=== PATIENT | male | born 1945 | race Caucasian/White ===

== ENCOUNTER 2017-11-12 06:27 | Day surgery (SDC) | payer MEDICARE, BC ==
[2017-11-10 09:43] VITALS: BMI 31.1
[~2017-11-12 06:27] MED LIST: ALPRAZolam 0.25 MG TAB PO PRN; ALPRAZolam 0.5 MG TAB PO PRN; ASPIRIN 325 MG TAB PO STA; ATORVASTATIN 80 MG TAB PO STA; NITROGLYCERIN SL TABS 0.4 MG TAB SUBLINGUAL PRN; SODIUM CHLORIDE 0.9% 1,000 ML in EMPTY BAG 1 BAG IV ONE
[2017-11-12 07:00] VITALS: RESP 18
[2017-11-12 07:04] LABS: Glucose,Whole Blood 153 mg/dL (75-99)
[2017-11-12] MEDS ORDERED: LIDOCAINE 2% INJ 20 MG/ML (20 ML MDV) ONE (07:27)
[2017-11-12] MEDS ORDERED: VERAPAMIL 2.5 MG/ML 2 ML AMP ONE (07:27)
[2017-11-12 07:31] LABS: Anion Gap 12 mmol/L; Blood Urea Nitrogen 16 mg/dL (9-20); Calcium 9.5 mg/dL (8.4-10.2); Carbon Dioxide 29 mmol/L (22-30); Chloride 102 mmol/L (98-107); Glucose 166 mg/dL (74-99); Potassium 4.9 mmol/L (3.5-5.1); Sodium 143 mmol/L (137-145)
[2017-11-12] MEDS ORDERED: MIDAZOLAM 2 MG/2 ML VIAL ONE (07:32)
[2017-11-12] MEDS ORDERED: HEPARIN SODIUM 1,000 UN/ML (10ML VL) ONE (07:32)
[2017-11-12] MEDS ORDERED: MIDAZOLAM 2 MG/2 ML VIAL IV ONE (07:43)
[2017-11-12] MEDS ORDERED: LIDOCAINE 2% INJ 20 MG/ML SQ ONE (07:45)
[2017-11-12] MEDS: VERAPAMIL SYRINGE (5 MG/10 ML) INTRAARTER ONE ×2 (07:47→08:04)
[2017-11-12] MEDS ORDERED: HEPARIN SODIUM 1,000 UN/ML (10ML VL) IV ONE (07:49)
[2017-11-12] MEDS ORDERED: IOPAMIDOL-370 125ML BTL INJ ONE (08:04)
[2017-11-12] MEDS ORDERED: RX INFO: IV CONTRAST WAS GIVEN 1 EACH MISC MISCELLANE PRN (08:08)
[2017-11-12] MEDS ORDERED: SODIUM CHLORIDE 0.9% 1,000 ML IV SCH (08:15)
--- NOTE | 2017-11-12 08:43 | CC ---
CARDIAC CATHETERIZATION REPORT DATE OF SERVICE: 11/12/2017 PERFORMING PHYSICIAN: Victor M Zarate MD, hole digger operator PROCEDURE PERFORMED: 1. Selective left and right coronary angiogram. 2. Left internal mammary artery angiogram. 3. Left heart catheterization. INDICATION: This is a pleasant 71-year-old gentleman with a known history of coronary artery disease and prior stenting of the RCA and single-vessel bypass with MONTGOMERY to LAD, was experiencing intermittent episodes of chest discomfort concerning for angina. The heart catheterization was recommended. APPROACH: Left radial artery. COMPLICATION: None. LEVEL OF SEDATION: Moderate with sedation length of 22 minutes. PROCEDURE DESCRIPTION: After obtaining an informed consent, the patient was brought to the cardiac laborer pole crew. Left radial artery was cannulated using micropuncture technique, the micropuncture wire passed easily. Then I did after that place a 6-Welsh sheath in the left radial artery and I gave the patient 2 mg of verapamil IA and 10,000 units of heparin IV. After that, I did selective right and left coronary angiogram using JL4 and JR4 catheters. After that I did left internal mammary artery angiogram using the JR4 catheter. The left heart catheterization was performed using 5-Welsh pigtail catheter. The procedure was completed without any complication. SELECTIVE CORONARY ANGIOGRAM: 1. The left main is angiographically normal. It bifurcates into left circumflex and left anterior descending artery. 2. The left circumflex is a large caliber vessel. It is a nondominant vessel. The proximal circ has mild disease only. Gives rise into a large OM branch, which bifurcates into 2 branches. The first OM branch appeared to have mild disease only and the left circumflex continues after that as a medium caliber vessel in the AV groove. 3. The left anterior descending artery is subtotally occluded in the proximal to midportion with competitive flow seen from the MONTGOMERY. 4. The RCA is a large caliber vessel and it is a dominant vessel. The mid RCA is stented and the stents are patent. CORONARY BYPASS ANGIOGRAM: The MONTGOMERY to LAD is patent. HEMODYNAMICS: The left ventricular end-diastolic pressure was 4 mmHg and no gradient was identified across the aortic valve. CONCLUSION: 1. Known history of unstable angina in this gentleman with history of coronary artery disease and prior stenting of the right coronary artery and single-vessel bypass with MONTGOMERY to left anterior descending artery. 2. Patent stent in the mid right coronary artery. 3. Mild disease involving the left circumflex. 4. Patent MONTGOMERY to left anterior descending artery. POSTPROCEDURE MANAGEMENT: 1. Maximize medical treatment. 2. Follow up with the patient. MMODL / IJN: [id number] /
--- NOTE | 2017-11-12 08:49 | LTR ---
November 12, 2017 Re: Jeyson Bailey Dear Dr. Grissom: MrKami Bailey underwent a heart catheterization which revealed patent stent in the RCA and patent MONTGOMERY to LAD. The procedure was performed without any complication. I want to thank you for allowing me to participate in his care and please do not hesitate to call if you have any question or concern. Sincerely, MD LYNNETTE Urrutia / FERNANDON: [id number] /
[2017-11-12 09:08] VITALS: TEMP 97.8
[2017-11-12 13:23] VITALS: BP 124/65; PULSE 55
== END 2017-11-12 13:00 | disposition home or self-care (01) ==
LOC: CATHCVL 06:27
PROVIDERS: ATTEND Internal Medicine Interventional Cardiology
DX: I25.110 Atherosclerotic heart disease of native coronary artery with unstable angina pectoris (principal); Z95.5 Presence of coronary angioplasty implant and graft; Z95.1 Presence of aortocoronary bypass graft; I48.0 Paroxysmal atrial fibrillation; E11.9 Type 2 diabetes mellitus without complications; E78.00 Pure hypercholesterolemia, unspecified; I10 Essential (primary) hypertension; E03.9 Hypothyroidism, unspecified; Z82.49 Family history of ischemic heart disease and other diseases of the circulatory system; Z79.01 Long term (current) use of anticoagulants; Z79.84 Long term (current) use of oral hypoglycemic drugs; Z79.82 Long term (current) use of aspirin; Z79.890 Hormone replacement therapy; Z79.4 Long term (current) use of insulin; Z79.899 Other long term (current) drug therapy; Z88.8 Allergy status to other drugs, medicaments and biological substances; Z87.891 Personal history of nicotine dependence
CPT/HCPCS: 93459; 80048; C1894; J2001; J2250; J1644; Q9967

== ENCOUNTER 2022-10-29 05:58 | Day surgery (SDC) | payer BC, MEDICARE ==
[~2022-10-29 05:58] MED LIST changes: +HEPARIN SODIUM,PORCINE 10,000 UNIT in SODIUM CHLORIDE 0.9% 1,000 ML IRRIGATION PRN; +HEPARIN SODIUM,PORCINE 2,500 UNIT in SODIUM CHLORIDE 0.9% 250 ML IRRIGATION PRN; -SODIUM CHLORIDE 0.9% 1,000 ML in EMPTY BAG 1 BAG IV ONE; +SODIUM CHLORIDE 0.9% 1,000 ML in EMPTY BAG 1 BAG IV SCH
[2022-10-29] MEDS ORDERED: METOPROLOL TARTRATE 50 MG TAB PO STA (06:45)
[2022-10-29 06:54] LABS: Glucose,Whole Blood 131 mg/dL (70-110)
[2022-10-29] MEDS ORDERED: HEPARIN SODIUM 1,000 UN/ML (10ML VL) ONE (07:35)
[2022-10-29] MEDS ORDERED: MIDAZOLAM 2 MG/2 ML VIAL IVP ONE ×2 (07:38→07:58)
[2022-10-29] MEDS ORDERED: LIDOCAINE 1% INJ 10MG/ML (5 ML VIAL-PF) SQ ONE (07:39)
[2022-10-29] MEDS: VERAPAMIL SYRINGE (5 MG/10 ML) INTRAARTER ONE ×2 (07:41→08:20)
[2022-10-29] MEDS: HEPARIN SODIUM 1,000 UN/ML (10ML VL) IVP ONE ×2 (07:44→07:55)
[2022-10-29] MEDS ORDERED: NITROGLYCERIN 1000MCG/10ML SYRINGE INTRACORON ONE (08:13)
[2022-10-29] MEDS ORDERED: CLOPIDOGREL 75 MG TAB ONE (08:18)
[2022-10-29] MEDS ORDERED: IOPAMIDOL-370 125ML BTL INJ ONE (08:21)
[2022-10-29] MEDS ORDERED: CLOPIDOGREL 75 MG TAB PO ONE (08:21)
--- NOTE | 2022-10-29 08:31 | P.PCN ---
Date of Procedure: 10/29/22 Operative Findings: CARDIAC CATHETERIZATION PERFORMING PHYSICIAN: Victor M Zarate MD, RPVI PROCEDURE PERFORMED: 1. Selective right and left coronary angiogram 2. MONTGOMERY to LAD angiogram 3. Successful stenting of the RCA in the midportion using 2.5 x 12 mm Xience ADRIAN with adjunctive use of intravascular ultrasound INDICATION: Shortness of breath concerning for unstable angina 76-year-old gentleman who is known to have coronary artery disease with prior stenting of the RCA and known MONTGOMERY to LAD as well as multiple risk factors COMPLICATION: None APPROACH: Right radial artery LEVEL OF SEDATION: Moderate with a sedation length of 39 minutes PROCEDURE DESCRIPTION: After obtaining an informed consent, the patient was brought to cardiac lab assistant. Local anesthesia was performed using lidocaine subcutaneously. The left radial artery was cannulated using Seldinger technique, the guidewire passed easily, following that we advanced a 5-Indian sheath dilator assembly, the wire and dilator were removed and sheath was flushed. Following that, 2 mg of verapamil along with 5000 unit heparin were given. Selective right and left coronary angiogram using a 6-Indian JR4 and JL 4 catheters. MONTGOMERY to LAD angiogram was performed using the JR4 catheter. After that I did intervene on the right coronary artery. The procedure was completed there was no complication. SELECTIVE CORONARY ANGIOGRAM: The right coronary artery: Large-caliber vessel and a dominant vessel. The RCA is a stented in the midportion. Distal to the stented segment there is an area appeared to be in the range of 70-80%. Left main: Has mild disease. Bifurcates into an LCx and LAD The left circumflex: Large caliber vessel nondominant vessel. The first obtuse marginal branch of the left circumflex has an intermediate lesion appeared to be in the range of 50%. The left anterior descending artery: The LAD proximally has mild disease only. Gives rises into the first diagonal branch which has also intermediate lesion appeared to be in the range of 50%. The LAD after that appears to be subtotally occluded with competitive flow from the MONTGOMERY The MONTGOMERY to LAD is patent PCI OF THE RCA: Anticoagulation was initiated using heparin with continuous ACT monitoring. I did engage the RCA using an inhaled 0.75 guiding catheter. I did wire the RCA using a run-through wire. After that I did intravascular ultrasound which showed a diameter of the RCA proximally about 3 mm in diametercould. I could not advance the KATARZYNA to the mid RCA. Then I did balloon angioplasty using 2.5 x 12 mm balloon before I deployed 2.5 x 12 mm stent where the stent was positioned under fluoroscopy guidance and deployed under 18 fabrice for 20 seconds. The following angiogram showed excellent angiographic results and the procedure was completed was no complication CONCLUSION: 1. Occluded LAD. Patent MONTGOMERY to LAD. The first diagonal branch has intermediate lesion appears to be in the range of 50% 2. Sntermediate disease involving the first obtuse marginal branch of the left circumflex 3. Severe disease involving the RCA. I did perform successful stenting of the RCA POSTPROCEDURE MANAGEMENT: Dual antiplatelet therapy using aspirin and Plavix for 12 months
[2022-10-29] MEDS ORDERED: FUROSEMIDE 20 MG TAB PO PRN (09:12)
[2022-10-29] MEDS ORDERED: MELOXICAM 7.5 MG TAB PO PRN (09:12)
[2022-10-29] MEDS ORDERED: MAG HYDROX/AL HYDROX/SIMETH 30 ML CUP PO PRN (09:13)
[2022-10-29] MEDS ORDERED: RX INFO: IV CONTRAST WAS GIVEN 1 EACH MISC MISCELLANE PRN (09:13)
[2022-10-29] MEDS ORDERED: ZOLPIDEM 5 MG TAB PO PRN (09:13)
[2022-10-29] MEDS ORDERED: ATROPINE SULFATE 0.1 MG/ML 10ML SYRINGE IV PRN (09:13)
[2022-10-29 10:57] VITALS: BMI 32.5
[2022-10-29 12:07] LABS: Glucose,Whole Blood 178 mg/dL (70-110)
[2022-10-29 12:46] VITALS: PULSE 51
[2022-10-29 14:54] VITALS: BP 158/75; RESP 16; TEMP 97.5
[2022-10-29] MEDS ORDERED: ATORVASTATIN 40 MG TAB PO SCH (17:30)
[2022-10-29] MEDS ORDERED: INSULIN NPH 100 UNIT/ML 10 ML VIAL SQ SCH (20:00)
[2022-10-29] MEDS ORDERED: METOPROLOL TARTRATE 50 MG TAB PO SCH (21:00)
[2022-10-29] MEDS ORDERED: PROPAFENONE 150 MG TAB PO SCH (21:00)
[2022-10-30] MEDS ORDERED: LEVOTHYROXINE 100 MCG TAB PO SCH (06:30)
[2022-10-30] MEDS ORDERED: PANTOPRAZOLE 40 MG TABLET PO SCH (07:30)
[2022-10-30] MEDS ORDERED: CHOLECALCIFEROL 125 MCG (5000 IU) TABLET PO SCH (09:00)
[2022-10-30] MEDS ORDERED: hydroCHLOROthiazide 25 MG TAB PO SCH (09:00)
[2022-10-30] MEDS ORDERED: ASPIRIN 81 MG PO SCH (09:00)
[2022-10-30] MEDS ORDERED: CLOPIDOGREL 75 MG TAB PO SCH (09:00)
[2022-10-30] MEDS ORDERED: LOSARTAN 50 MG TAB PO SCH (09:00)
== END 2022-10-29 15:56 | disposition home or self-care (01) ==
LOC: CATHCVL 05:58 → 6NMEDSUR 08:37 → CATHCVL 15:56
PROVIDERS: ATTEND Internal Medicine Interventional Cardiology
DX: I25.10 Atherosclerotic heart disease of native coronary artery without angina pectoris (principal); Z95.1 Presence of aortocoronary bypass graft; Z95.5 Presence of coronary angioplasty implant and graft; I48.0 Paroxysmal atrial fibrillation; I10 Essential (primary) hypertension; E78.5 Hyperlipidemia, unspecified; E11.9 Type 2 diabetes mellitus without complications; F17.210 Nicotine dependence, cigarettes, uncomplicated; Z79.4 Long term (current) use of insulin; Z79.84 Long term (current) use of oral hypoglycemic drugs; Z79.01 Long term (current) use of anticoagulants; Z79.899 Other long term (current) drug therapy; Z82.49 Family history of ischemic heart disease and other diseases of the circulatory system
CPT/HCPCS: 93455; 92978; 99152; 99153 ×2; C9600; C1887 ×2; C1769 ×2; C1894; C1725; C1753; C1874; J2250; J2001; J1644; Q9967

== ENCOUNTER → 2023-02-11 | Outpatient (CLI) | payer MEDICARE ==
--- NOTE | 2023-02-11 12:24 | US ---
EXAMINATION TYPE: US venous doppler duplex LE RT DATE OF EXAM: 02/11/2023 12:12 PM COMPARISON: NONE CLINICAL INDICATION: Male, 77 years old with history of M79.671 M21.6X1 M19.071 I80.9 PHLEBITIS AND T HROMBOPHLEBITIS; Pt states right foot swelling SIDE PERFORMED: Right TECHNIQUE: The lower extremity deep venous system is examined utilizing real time linear array sonog cherelle with graded compression, doppler sonography and color-flow sonography. VESSELS IMAGED: Common Femoral Vein Deep Femoral Vein Greater Saphenous Vein * Femoral Vein Popliteal Vein Small Saphenous Vein * Proximal Calf Veins Posterior tibial veins (* superficial vessels) Right Leg: Negative for DVT Results called to Dr. Walls at time of exam IMPRESSION: No evidence for DVT within the right lower extremity.
== END | disposition home or self-care (01) ==
LOC: RADUSWWP 11:44
PROVIDERS: ATTEND Podiatrist
DX: M19.071 Primary osteoarthritis, right ankle and foot (principal); M21.6X1 Other acquired deformities of right foot; I80.3 Phlebitis and thrombophlebitis of lower extremities, unspecified

== ENCOUNTER → 2024-05-03 | Outpatient (CLI) | payer MEDICARE ==
--- NOTE | 2024-05-03 13:59 | XR ---
EXAMINATION TYPE: XR lumbar spine 3V DATE OF EXAM: 05/03/2024 Comparison: None Clinical History: 78-year-old male M54.9 DORSALGIA, UNSPECIFIED Findings: 5 lumbar type vertebral bodies. Moderate to severe degenerative disc disease throughout the lumbar sp ine with desiccated and narrowed discs with endplate spondylosis. Hypertrophic facet arthropathy mid to lower lumbar spine. Degenerative grade 1 anterolisthesis L4-L5. Tubal body heights are preserved. Impression: 1. Moderate to severe degenerative disc disease throughout. 2. Hypertrophic facet arthropathy lower lumbar spine with degenerative grade 1 anterolisthesis L4-L5. 3. No vertebral compression collapse. [facility], , 05/03/2024 1:57 PM
== END | disposition home or self-care (01) ==
LOC: RADXRMAIN 12:03
PROVIDERS: ATTEND Internal Medicine Geriatric Medicine
DX: M54.9 Dorsalgia, unspecified
CPT/HCPCS: 72100

== ENCOUNTER 2024-07-04 23:57 | Inpatient (IN) | payer MEDICARE ==
--- NOTE | 2024-07-05 00:13 | ED ---
General Adult HPI - General Chief complaint: Neuro Symptoms/Deficit Stated complaint: Neuro symptoms Time Seen by Provider: 07/05/24 00:04 Source: patient Mode of arrival: wheelchair Limitations: no limitations - History of Present Illness Initial comments: Dictation was produced using [employer] dictation software. please excuse any grammatical, word or spelling errors. Chief Complaint: 78-year-old male presents to the ER for strokelike symptoms History of Present Illness: Patient is an 78-year-old male approximately 1 hour prior to arrival he had an episode that lasted for several minutes of aphasia and dysarthria. Patient has no history of CVA. They called her family member who lives in [place] that is in the medical field and was instructed to bring the patient to the emergency department. Patient states that his symptoms have resolved. States that he did realize that he was having garbled speech. at the bedside was sitting next to him at around 11:30 PM when she noticed it. Patient [place] any headache. No pain complaints. Patient currently asymptomatic at the bedside. Patient reports A-fib history and takes anticoagulation medications. The ROS documented in this emergency department record has been reviewed and confirmed by me. Those systems with pertinent positive or negative responses have been documented in the HPI. All other systems are other negative and/or noncontributory. - Related Data Home Medications Medication Instructions Recorded Confirmed Atorvastatin [Lipitor] 40 mg PO W/SUPPER 11/13/15 10/29/22 Insulin NPH Human Isophane 15 unit SQ HS 11/13/15 10/29/22 [NovoLIN N] Insulin Regular, Human [NovoLIN R] 10 - 12 unit SQ AC-TID 11/13/15 10/29/22 Levothyroxine Sodium [Synthroid] 200 mcg PO DAILY 11/13/15 10/29/22 Losartan/Hydrochlorothiazide 0.5 tab PO DAILY 11/13/15 10/29/22 [Losartan-Hctz 100-12.5 mg Tab] Metoprolol Tartrate [Lopressor] 50 mg PO BID 11/13/15 10/29/22 Propafenone HCl [Rythmol] 150 mg PO BID 11/13/15 10/29/22 Celecoxib [CeleBREX] 200 mg PO DAILY PRN 11/10/17 10/29/22 Cholecalciferol [Vitamin D3 (25 5,000 unit PO DAILY 11/10/17 10/29/22 Mcg = 1000 Iu)] Omeprazole 20 mg PO QAM 11/10/17 10/29/22 Apixaban [Eliquis] 5 mg PO BID 10/28/22 10/29/22 Furosemide [Lasix] 20 mg PO DIRECTED PRN 10/28/22 10/29/22 glipiZIDE/METFORMIN HCL 1 tab PO DIRECTED PRN 10/28/22 10/29/22 [glipiZIDE/METFORMIN HCL 5-500 mg] Aspirin 81 mg PO DAILY 10/29/22 10/29/22 Allergies Allergy/AdvReac Type Severity Reaction Status Date / Time No Known Allergies Allergy Verified 07/05/24 00:03 Review of Systems ROS Statement: Those systems with pertinent positive or pertinent negative responses have been documented in the HPI. ROS Other: All systems not noted in ROS Statement are negative. Past Medical History Past Medical History: Coronary Artery Disease (CAD), Diabetes Mellitus, GERD/Reflux, Hearing Disorder / Deafness, Hyperlipidemia, Hypertension, Thyroid Disorder Additional Past Medical History / Comment(s): arthritis, recent SOB and dizziness. History of Any Multi-Drug Resistant Organisms: None Reported Past Surgical History: Appendectomy, Coronary Bypass/CABG, Heart Catheterization With Stent Additional Past Surgical History / Comment(s): 3 stents, CABG 1999 Past Anesthesia/Blood Transfusion Reactions: No Reported Reaction Date of Last Stent Placement:: 05/21/2009 Past Psychological History: No Psychological Hx Reported Smoking Status: Former smoker Past Alcohol Use History: None Reported Past Drug Use History: None Reported - Past Family History Mother Family Medical History: No Reported History General Exam - General Exam Comments Initial Comments: PHYSICAL EXAM: General Impression: Alert and oriented x3, not in acute distress HEENT: Normocephalic atraumatic, extra-ocular movements intact, pupils equal and reactive to light bilaterally, mucous membranes moist. Cardiovascular: Heart regular rate and rhythm Chest: Able to complete full sentences, no retractions, no tachypnea Abdomen: abdomen soft, non-tender, non-distended, no organomegaly Musculoskeletal: Pulses present and equal in all extremities, no peripheral edema Motor: no focal deficits noted Neurological: CN II-XII grossly intact, no focal motor or sensory deficits noted, NIH 0 Skin: Intact with no visualized rashes Psych: Normal affect and mood Limitations: no limitations Course Vital Signs 12/10/24 12/10/24 12/10/24 00:01 00:18 02:02 Temperature 97.8 F Pulse Rate 53 L 56 L 57 L Respiratory 18 18 18 Rate Blood Pressure 176/91 139/87 134/94 O2 Sat by Pulse 98 95 96 Oximetry EKG Findings - EKG Comments: EKG Findings:: My EKG interpretation: Ventricular rate 60, A-fib, QRS 97, QTc 427. No WI prolongation, no QTC prolongation, no ST or T-wave changes noted. EKG for comparison. EKG consistent with A-fib Medical Decision Making - Medical Decision Making Was pt. sent in by a medical professional or institution (, PA, IC ENGINEER, urgent care, hospital, or fci...) When possible be specific @ -No Did you speak to anyone other than the patient for history (EMS, parent, family, police, friend...)? What history was obtained from this source @ -Some history obtained from at the bedside Did you review nursing and triage notes (agree or disagree)? Why? @ -I reviewed and agree with nursing and triage notes Were old charts reviewed (outside hosp., previous admission, EMS record, old EKG, old radiological studies, urgent care reports/EKG's, fci records)? Report findings @ -No old charts were reviewed Differential Diagnosis (chest pain, altered mental status, abdominal pain women, abdominal pain men, vaginal bleeding, musculoskeletal, weakness, fever, dyspnea, syncope, headache, dizziness, GI bleed, back pain, seizure, CVA, palpatations, mental health)? @ - Differential CVA: Ischemic stroke, hemorrhagic stroke, brain tumor, atypical migraine, Wernicke's encephalopathy, seizure, multiple sclerosis, meningitis, encephalitis, hypoglycemia, Guillain-Parikh, electrolytes disturbance, myasthenia gravis.... This is not meant to be an all-inclusive list EKG interpreted by me (3pts min.). @ -As above X-rays interpreted by me (1pt min.). @ -Chest x-ray shows no acute processes CT interpreted by me (1pt min.). @ -CT brain and CT angiography of the head and neck shows no acute processes U/S interpreted by me (1pt. min.). @ -None done What testing was considered but not performed or refused? (CT, X-rays, U/S, labs)? Why? @ -None What meds were considered but not given or refused? Why? @ -None Was smoking cessation discussed for >3mins.? @ -No Were there social determinants of health that impacted care today? How? (Homelessness, low income, unemployed, alcoholism, drug addiction, transportation, low edu. Level, literacy, decrease access to med. care, fdc, rehab)? @ -No Was there de-escalation of care discussed even if they declined (Discuss DNR or withdrawal of care, Hospice)? DNR status @ -No What co-morbidities impacted this encounter? (DM, HTN, Smoking, COPD, CAD, Cancer, CVA, ARF, Chemo, Hep., AIDS, mental health diagnosis, sleep apnea, morbid obesity)? @ -Anticoagulation use Was patient admitted / discharged? Hospital course, mention meds given and route, prescriptions, significant lab abnormalities, going to OR and other pertinent info. @ -78-year-old male presents to the emergency department with episode of strokelike symptoms. He was asymptomatic at the bedside with normal neurologic exam. Clinical presentation consistent with transient ischemic attack. Vital signs stable. Laboratory evaluation is unremarkable. Imaging studies are negative. Patient did have an episode of left facial tingling for several minutes. He is reevaluated at 3:21 AM and symptoms are gone. Patient given aspirin will be admitted consultation to neurology. Case discussed with hospitalist for admission Did you discuss the management of the patient with other professionals (professionals i.e. , PA, IC ENGINEER, lab, RT, psych nurse, child protective services social worker, circulation worker, teacher, founder chairman and chief creative officer, rn case management)? Give summary @ -See above Was critical care preformed (if so, how long)? @ -No Undiagnosed new problem with uncertain prognosis? @ -No Drug Therapy requiring intensive monitoring for toxicity (Heparin, Nitro, Insulin, Cardizem)? @ -No Were any procedures done? @ -No Diagnosis/symptom? Acute, or Chronic, or Acute on Chronic? Uncomplicated (without systemic symptoms) or Complicated (systemic symptoms)? @ -TIA/CVA Side effects of treatment? @ -No Exacerbation, Progression, or Severe Exacerbation? @ -No Poses a threat to life or bodily function? How? (Chest pain, [place], [place], pneumonia, PE, COPD, DKA, ARF, appy, cholecystitis, CVA, Diverticulitis, Homicidal, Suicidal, threat to staff... and all critical care pts) @ -yes - Lab Data Result diagrams: 07/05/24 00:52 07/05/24 00:52 Lab Results 07/05/24 07/05/24 07/05/24 Range/Units 00:52 00:52 00:52 WBC 9.7 (3.8-10.6) k/uL RBC 5.01 (4.30-5.90) m/uL Hgb 15.4 (13.0-17.5) gm/dL Hct 47.4 (39.0-53.0) % MCV 94.7 (80.0-100.0) fL MCH 30.6 (25.0-35.0) pg MCHC 32.4 (31.0-37.0) g/dL RDW 13.5 (11.5-15.5) % Plt Count 208 (150-450) k/uL MPV 7.8 Neutrophils % 56 % Lymphocytes % 31 % Monocytes % 9 % Eosinophils % 2 % Basophils % 1 % Neutrophils # 5.4 (1.3-7.7) k/uL Lymphocytes # 3.0 (1.0-4.8) k/uL Monocytes # 0.8 (0-1.0) k/uL Eosinophils # 0.2 (0-0.7) k/uL Basophils # 0.1 (0-0.2) k/uL PT 11.9 (10.0-12.5) sec INR 1.1 (<1.2) APTT 27.0 (22.0-30.0) sec Sodium 137 (137-145) mmol/L Potassium 4.1 (3.5-5.1) mmol/L Chloride 107 (98-107) mmol/L Carbon Dioxide 27 (22-30) mmol/L Anion Gap 3 mmol/L BUN 19 (9-20) mg/dL Creatinine 1.04 (0.66-1.25) mg/dL Est GFR (CKD-EPI)AfAm 78 (>60 ml/min/1.73 sqM) Est GFR (CKD-EPI)NonAf 68 (>60 ml/min/1.73 sqM) Glucose 72 L (74-99) mg/dL Calcium 8.7 (8.4-10.2) mg/dL Total Bilirubin 0.7 (0.2-1.3) mg/dL AST 23 (17-59) U/L ALT 21 (4-49) U/L Alkaline Phosphatase 110 (38-126) U/L Creatine Kinase 64 (55-170) U/L Troponin I (0.000-0.034) ng/mL Total Protein 7.2 (6.3-8.2) g/dL Albumin 3.9 (3.5-5.0) g/dL 07/05/24 Range/Units 00:52 WBC (3.8-10.6) k/uL RBC (4.30-5.90) m/uL Hgb (13.0-17.5) gm/dL Hct (39.0-53.0) % MCV (80.0-100.0) fL MCH (25.0-35.0) pg MCHC (31.0-37.0) g/dL RDW (11.5-15.5) % Plt Count (150-450) k/uL MPV Neutrophils % % Lymphocytes % % Monocytes % % Eosinophils % % Basophils % % Neutrophils # (1.3-7.7) k/uL Lymphocytes # (1.0-4.8) k/uL Monocytes # (0-1.0) k/uL Eosinophils # (0-0.7) k/uL Basophils # (0-0.2) k/uL PT (10.0-12.5) sec INR (<1.2) APTT (22.0-30.0) sec Sodium (137-145) mmol/L Potassium (3.5-5.1) mmol/L Chloride (98-107) mmol/L Carbon Dioxide (22-30) mmol/L Anion Gap mmol/L BUN (9-20) mg/dL Creatinine (0.66-1.25) mg/dL Est GFR (CKD-EPI)AfAm (>60 ml/min/1.73 sqM) Est GFR (CKD-EPI)NonAf (>60 ml/min/1.73 sqM) Glucose (74-99) mg/dL Calcium (8.4-10.2) mg/dL Total Bilirubin (0.2-1.3) mg/dL AST (17-59) U/L ALT (4-49) U/L Alkaline Phosphatase (38-126) U/L Creatine Kinase (55-170) U/L Troponin I <0.012 (0.000-0.034) ng/mL Total Protein (6.3-8.2) g/dL Albumin (3.5-5.0) g/dL Disposition Clinical Impression: Cerebrovascular accident (CVA) Disposition: ADMITTED IP TO THIS HOSP Condition: Fair Referrals: Jeyson Grissom MD [Primary Care Provider] - 1-2 days Decision Time: 03:22
[2024-07-05 01:13] LABS: Basophils # (A) 0.1 k/uL (0-0.2); Basophils % (A) 1 %; Eosinophils # (A) 0.2 k/uL (0-0.7); Eosinophils % (A) 2 %; HCT 47.4 % (39.0-53.0); HGB 15.4 gm/dL (13.0-17.5); Lymphocytes % (A) 31 %; MCH 30.6 pg (25.0-35.0); MCHC 32.4 g/dL (31.0-37.0); MCV 94.7 fL (80.0-100.0); Mean Platelet Volume 7.8; Monocytes # (A) 0.8 k/uL (0-1.0); Monocytes % (A) 9 %; Neutrophils # (A) 5.4 k/uL (1.3-7.7); Neutrophils % (A) 56 %; Platelet Count 208 k/uL (150-450); RBC 5.01 m/uL (4.30-5.90); RDW 13.5 % (11.5-15.5); WBC 9.7 k/uL (3.8-10.6)
[2024-07-05 01:21] LABS: ALT 21 U/L (4-49); AST 23 U/L (17-59); African American GFR (CKD) 78 (>60 ml/min/1.73 sqM); Albumin 3.9 g/dL (3.5-5.0); Alkaline Phosphatase 110 U/L (38-126); Anion Gap 3 mmol/L; Blood Urea Nitrogen 19 mg/dL (9-20); Calcium 8.7 mg/dL (8.4-10.2); Carbon Dioxide 27 mmol/L (22-30); Chloride 107 mmol/L (98-107); Creatine Kinase 64 U/L (55-170); Glucose 72 mg/dL (74-99); Non-African American GFR(CKD) 68 (>60 ml/min/1.73 sqM); Potassium 4.1 mmol/L (3.5-5.1); Sodium 137 mmol/L (137-145); Total Bilirubin 0.7 mg/dL (0.2-1.3); Total Protein 7.2 g/dL (6.3-8.2)
[2024-07-05 01:37] LABS: INR 1.1 (<1.2); Prothrombin Time 11.9 sec (10.0-12.5)
--- NOTE | 2024-07-05 02:12 | CT ---
EXAM: CT Head Without Intravenous Contrast CLINICAL HISTORY: ITS.REASON CT Reason: Neuro deficit, acute, stroke suspected TECHNIQUE: Axial computed tomography images of the head/brain without intravenous contrast. CTDI is 48.9 mGy and DLP is 1150.8 mGy-cm. This CT exam was performed using one or more of the following dose reduction techniques: automated exposure control, adjustment of the mA and/or kV according to patient size, and/or use of iterative reconstruction technique. COMPARISON: No relevant prior studies available. FINDINGS: Brain: No hemorrhage or mass effect. Ventricles: No hydrocephalus. Bones/joints: Unremarkable. Soft tissues: Unremarkable. Sinuses: No air fluid level. Mastoid air cells: Clear. IMPRESSION: No acute hemorrhage, hydrocephalus, or mass effect.
--- NOTE | 2024-07-05 02:55 | CT ---
EXAM: CT Angiography Head With Intravenous Contrast CLINICAL HISTORY: ITS.REASON CT Reason: Neuro deficit, acute, stroke suspected TECHNIQUE: Axial computed tomographic angiography images of the head with intravenous contrast. CTDI is 28.25 mGy and DLP is 361.9 mGy-cm. This CT exam was performed using one or more of the following dose reduction techniques: automated exposure control, adjustment of the mA and/or kV according to patient size, and/or use of iterative reconstruction technique. MIP reconstructed images were created and reviewed. COMPARISON: No relevant prior studies available. FINDINGS: Right internal carotid artery: No significant stenosis. No aneurysm. Right anterior cerebral artery: No significant stenosis. No aneurysm. Right middle cerebral artery: No significant stenosis. No aneurysm. Right posterior cerebral artery: No significant stenosis. No aneurysm. Right vertebral artery: Unremarkable. Left internal carotid artery: No significant stenosis. No aneurysm. Left anterior cerebral artery: No significant stenosis. No aneurysm. Left middle cerebral artery: No significant stenosis. No aneurysm. Left posterior cerebral artery: No significant stenosis. No aneurysm. Left vertebral artery: Unremarkable. Basilar artery: No significant stenosis. No aneurysm. IMPRESSION: No significant stenosis. EXAM: CT Angiography Neck With Intravenous Contrast CLINICAL HISTORY: ITS.REASON CT Reason: Neuro deficit, acute, stroke suspected TECHNIQUE: Routine carotid CT angiography protocol was performed with intravenous contrast. NASCET criteria using the distal ICAs for comparison were used for evaluation of stenoses. CTDI is 28.25 mGy and DLP is 361.9 mGy-cm. This CT exam was performed using one or more of the following dose reduction techniques: automated exposure control, adjustment of the mA and/or kV according to patient size, and/or use of iterative reconstruction technique. MIP reconstructed images were created and reviewed. COMPARISON: None. FINDINGS: VASCULATURE: Right common carotid artery: No significant stenosis. No dissection. Right internal carotid artery: No significant stenosis. No dissection. Right vertebral artery: No significant stenosis. No dissection. Left common carotid artery: No significant stenosis. No dissection. Left internal carotid artery: Moderate stenosis. No dissection. Left vertebral artery: No significant stenosis. No dissection. NECK: Lung apices: Clear. CAROTID STENOSIS REFERENCE USING NASCET CRITERIA: % ICA stenosis = (1 - narrowest ICA diameter/diameter of distal cervical ICA) x 100. Mild - <50% stenosis. Moderate - 50-69% stenosis. Severe - 70-94% stenosis. Near occlusion - 95-99% stenosis. Occluded - 100% stenosis. IMPRESSION: Moderate left ICA stenosis from atherosclerosis
--- NOTE | 2024-07-05 03:14 | XR ---
EXAM: XR Chest, 2 Views CLINICAL HISTORY: ITS.REASON XR Reason: altered mental status TECHNIQUE: Frontal and lateral views of the chest. COMPARISON: No relevant prior studies available. FINDINGS: Lungs: No consolidation or mass. Minimal vascular congestion Pleural space: No effusion. Heart: cardiomegaly. Bones/joints: No acute findings. IMPRESSION: Minimal vascular congestion
[2024-07-05] MEDS: ASPIRIN 81 MG PO STA (03:28)
--- NOTE | 2024-07-05 07:56 | P.HPIM ---
History of Present Illness This is a pleasant 78 years old male with past medical history of multiple problems as below Presents because of 1 hour duration of slurred speech and numbness in his left finger and then spread more proximally patient says it was up to his mouth where it was now. Currently all the symptoms resolved once he came to the hospital He has mild headache but no dizziness. No blurred vision. Currently no slurred speech or difficulty talking. Patient currently denies any weakness. He does not have any more speech difficulty He denies chest pain or dyspnea. No upper GI/ symptoms. He denies smoking alcohol or illicit drugs. He says he was taking his Eliquis as home as prescribed. 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 Patient hemodynamically stable, blood pressure 123/92. Heart rate 57. Patient is afebrile. He has unremarkable CBC, basic metabolic panel, liver enzymes, INR and troponin Chest x-ray shows minimal vascular congestion CT of the brain showing no acute process, mass effect or hydrocephalus CTA of the head and neck showing moderate left internal carotid artery stenosis with no other aneurysmal dilatation, stenosis or dissection EKG showing A-fib at a rate of 60. Review of Systems Review of systems CONSTITUTIONAL: No fever, no malaise, no fatigue. HEENT: No recent visual problems or hearing problems. Denied any sore throat. CARDIOVASCULAR: No orthopnea, PND, no palpitations, no syncope. PULMONARY: No shortness of breath, no cough, no hemoptysis. GASTROINTESTINAL: No diarrhea, no nausea, no vomiting, no abdominal pain. Normoactive bowel sounds. NEUROLOGICAL: No headaches, no weakness, no numbness. HEMATOLOGICAL: Denies any bleeding or petechiae. GENITOURINARY: Denies any burning micturition, frequency, or urgency. MUSCULOSKELETAL/RHEUMATOLOGICAL: Denies any joint pain, swelling, or any muscle pain. ENDOCRINE: Denies any polyuria or polydipsia. Past Medical History Past Medical History: Coronary Artery Disease (CAD), Diabetes Mellitus, GERD/Reflux, Hearing Disorder / Deafness, Hyperlipidemia, Hypertension, Thyroid Disorder Additional Past Medical History / Comment(s): arthritis, recent SOB and dizziness. History of Any Multi-Drug Resistant Organisms: None Reported Past Surgical History: Appendectomy, Coronary Bypass/CABG, Heart Catheterization With Stent Additional Past Surgical History / Comment(s): 3 stents, CABG 1999 Past Anesthesia/Blood Transfusion Reactions: No Reported Reaction Date of Last Stent Placement:: 05/21/2009 Past Psychological History: No Psychological Hx Reported Smoking Status: Former smoker Past Alcohol Use History: None Reported Past Drug Use History: None Reported - Past Family History Mother Family Medical History: No Reported History Medications and Allergies Home Medications Medication Instructions Recorded Confirmed Type Atorvastatin [Lipitor] 40 mg PO W/SUPPER 11/13/15 10/29/22 History Insulin NPH Human Isophane 15 unit SQ HS 11/13/15 10/29/22 History [NovoLIN N] Insulin Regular, Human [NovoLIN R] 10 - 12 unit SQ AC-TID 11/13/15 10/29/22 History Levothyroxine Sodium [Synthroid] 200 mcg PO DAILY 11/13/15 10/29/22 History Losartan/Hydrochlorothiazide 0.5 tab PO DAILY 11/13/15 10/29/22 History [Losartan-Hctz 100-12.5 mg Tab] Metoprolol Tartrate [Lopressor] 50 mg PO BID 11/13/15 10/29/22 History Propafenone HCl [Rythmol] 150 mg PO BID 11/13/15 10/29/22 History Celecoxib [CeleBREX] 200 mg PO DAILY PRN 11/10/17 10/29/22 History Cholecalciferol [Vitamin D3 (25 5,000 unit PO DAILY 11/10/17 10/29/22 History Mcg = 1000 Iu)] Omeprazole 20 mg PO QAM 11/10/17 10/29/22 History Apixaban [Eliquis] 5 mg PO BID 10/28/22 10/29/22 History Furosemide [Lasix] 20 mg PO DIRECTED PRN 10/28/22 10/29/22 History glipiZIDE/METFORMIN HCL 1 tab PO DIRECTED PRN 10/28/22 10/29/22 History [glipiZIDE/METFORMIN HCL 5-500 mg] Aspirin 81 mg PO DAILY 10/29/22 10/29/22 History Allergies Allergy/AdvReac Type Severity Reaction Status Date / Time No Known Allergies Allergy Verified 07/05/24 00:03 Physical Exam Vitals: Vital Signs Temp Pulse Resp BP Pulse Ox 07/05/24 06:47 61 18 149/95 98 07/05/24 05:21 57 L 18 173/95 96 07/05/24 03:29 60 18 143/91 98 07/05/24 02:02 57 L 18 134/94 96 07/05/24 00:18 56 L 18 139/87 95 07/05/24 00:01 97.8 F 53 L 18 176/91 98 Intake and Output 07/04/24 07/05/24 07/05/24 22:59 06:59 14:59 Other: Weight 106.594 kg GENERAL: The patient is alert and oriented x3, not in any acute distress. Well developed, well nourished. HEENT: Pupils are round and equally reacting to light. EOMI. No scleral icterus. No conjunctival pallor. Normocephalic, atraumatic. No pharyngeal erythema. No thyromegaly. CARDIOVASCULAR: S1 and S2 present. No murmurs, rubs, or gallops. PULMONARY: Chest is clear to auscultation, no wheezing , no crackles. ABDOMEN: Soft, nontender, nondistended, normoactive bowel sounds. No palpable organomegaly. MUSCULOSKELETAL: No joint swelling or deformity. EXTREMITIES: No cyanosis, clubbing, or pedal edema. NEUROLOGICAL: Gross neurological examination did not reveal any focal deficits. SKIN: No rashes. no petechiae. Results CBC & Chem 7: 07/05/24 00:52 07/05/24 00:52 Labs: Abnormal Lab Results - Last 24 Hours (Table) 07/05/24 Range/Units 00:52 Glucose 72 L (74-99) mg/dL Assessment and Plan Assessment: Transient period of slurred speech and left upper extremity numbness, rule out TIA versus stroke, versus other Moderate left internal carotid artery stenosis Chronic atrial fibrillation on Eliquis Hypertension Hyperlipidemia Diabetes mellitus Plan: Neurology service were consulted from ER Will check carotid duplex Check vitamin B12, folate and TSH Vascular surgery team consult for his carotid artery disease Labs and medication were reviewed.. Continue same treatment. Continue with symptomatic treatment. Resume home medication. Monitor labs and vitals. DVT and GI prophylaxis. Further recommendations as per clinical course of the patient DVT prophylaxis: Eliquis GI Prophylaxis: Pepcid PT/OT: Pending Prognosis is guarded
--- NOTE | 2024-07-05 08:36 | US ---
EXAMINATION TYPE: US carotid duplex BILAT DATE OF EXAM: 07/05/2024 COMPARISON: CLINICAL INDICATION: Male, 78 years old with history of lf ica stenosis; Left facial numbness and lef t finger numbness. HTN controlled with meds. No hx tia or stroke. Additional History: TECHNIQUE: Grayscale, color Doppler and spectral Doppler evaluation of the bilateral carotid systems and vertebral arteries. Indirect Doppler criteria was utilized. FINDINGS: EXAM MEASUREMENTS: RIGHT: Peak Systolic Velocity (PSV) cm/sec ----- Right CCA: 39.8 ----- Right ICA: 43.3 ----- Right ECA: 60.1 ICA/CCA ratio: 1.1 RIGHT: End Diastole cm/sec ----- Right CCA: 9.6 ----- Right ICA: 8.5 ----- Right ECA: 7.8 LEFT: Peak Systolic Velocity (PSV) cm/sec ----- Left CCA: 45.3 ----- Left ICA: 106.9 ----- Left ECA: 72.4 ICA/CCA ratio: 2.4 LEFT: End Diastole cm/sec ----- Left CCA: 3.4 ----- Left ICA: 12.4 ----- Left ECA: 0.0 VERTEBRALS (direction of flow): Right Vertebral: Antegrade Left Vertebral: Antegrade Rhythm: Arrhythmia CURRICULUM AND ASSESSMENT DIRECTOR NOTES: Plaque in bilateral bulbs. No elevated velocities. Color Doppler imaging shows patency with blood flow throughout the carotid artery. Spectral waveforms are within normal limits. IMPRESSION: Right: No hemodynamically significant stenosis. Left: Some degree of stenosis suggested in the left due to elevated ratio possibly 50-69% Criteria for Assigning % of Stenosis / Diameter reduction (Estimation based on the indirect measurements of the internal carotid artery velocities (ICA PSV). 1. Normal (no stenosis)=ICA PSV < 125 cm/s: ratio < 2.0: ICA EDV<40 cm/s. 2. Less than 50% stenosis=ICA PSV < 125 cm/s: ratio < 2.0: ICA EDV<40 cm/s. 3. 50 to 69% stenosis=ICA PSV of 125 to 230 cm/s: ration 2.0 ? 4.0: ICA EDV 40-100 cm/s. 4. Greater than 70% stenosis to near occlusion= ICA PSV > 230 cm/s: ratio > 4.0: ICA EDV > 100 cm/s. 5. Near occlusion= ICA PSV velocities may be low or undetectable: variable ratio and ICA EDV. 6. Total occlusion=unable to detect flow. [facility], , 07/05/2024 8:34 AM
--- NOTE | 2024-07-05 10:44 | P.GSCN ---
History of Present Illness Consult date: 07/05/24 Reason for Consult: Carotid stenosis Requesting physician: Jamie E Sheet History of present illness: This a pleasant 78-year-old male with a past medical history of coronary artery disease status post CABG, atrial fibrillation on Eliquis, diabetes mellitus, thyroid disorder, hyperlipidemia and hypertension who was brought into the emergency department with complaints of slurred speech and left facial numbness and tingling as well as left hand numbness and tingling. Patient was worked up for stroke. He had a CTA of the head and neck that reported left sided carotid stenosis and vascular surgery was consulted for further evaluation. He denies any previous history of stroke. He follows with Dr. Zarate for his coronary artery disease and states that he has been monitoring his carotid arteries. Patient states symptoms resolved after coming into the hospital. He has not had any further focal deficits. Denied any visual changes, no weakness, numbness or tingling in the lower extremity. Patient denies any shortness of breath or chest pain, no abdominal pain, nausea or vomiting. Review of Systems A 14 point review systems was completed all pertinent positives and negatives as stated in the HPI. Past Medical History Past Medical History: Coronary Artery Disease (CAD), Diabetes Mellitus, GERD/Reflux, Hearing Disorder / Deafness, Hyperlipidemia, Hypertension, Thyroid Disorder Additional Past Medical History / Comment(s): arthritis, recent SOB and dizziness. History of Any Multi-Drug Resistant Organisms: None Reported Past Surgical History: Appendectomy, Coronary Bypass/CABG, Heart Catheterization With Stent Additional Past Surgical History / Comment(s): 3 stents, CABG 1999 Past Anesthesia/Blood Transfusion Reactions: No Reported Reaction Date of Last Stent Placement:: 05/21/2009 Past Psychological History: No Psychological Hx Reported Smoking Status: Former smoker Past Alcohol Use History: None Reported Past Drug Use History: None Reported - Past Family History Mother Family Medical History: No Reported History Medications and Allergies Home Medications Medication Instructions Recorded Confirmed Type Atorvastatin [Lipitor] 40 mg PO W/SUPPER 11/13/15 10/29/22 History Insulin NPH Human Isophane 15 unit SQ HS 11/13/15 10/29/22 History [NovoLIN N] Insulin Regular, Human [NovoLIN R] 10 - 12 unit SQ AC-TID 11/13/15 10/29/22 History Levothyroxine Sodium [Synthroid] 200 mcg PO DAILY 11/13/15 10/29/22 History Losartan/Hydrochlorothiazide 0.5 tab PO DAILY 11/13/15 10/29/22 History [Losartan-Hctz 100-12.5 mg Tab] Metoprolol Tartrate [Lopressor] 50 mg PO BID 11/13/15 10/29/22 History Propafenone HCl [Rythmol] 150 mg PO BID 11/13/15 10/29/22 History Celecoxib [CeleBREX] 200 mg PO DAILY PRN 11/10/17 10/29/22 History Cholecalciferol [Vitamin D3 (25 5,000 unit PO DAILY 11/10/17 10/29/22 History Mcg = 1000 Iu)] Omeprazole 20 mg PO QAM 11/10/17 10/29/22 History Apixaban [Eliquis] 5 mg PO BID 10/28/22 10/29/22 History Furosemide [Lasix] 20 mg PO DIRECTED PRN 10/28/22 10/29/22 History glipiZIDE/METFORMIN HCL 1 tab PO DIRECTED PRN 10/28/22 10/29/22 History [glipiZIDE/METFORMIN HCL 5-500 mg] Aspirin 81 mg PO DAILY 10/29/22 10/29/22 History Allergies Allergy/AdvReac Type Severity Reaction Status Date / Time No Known Allergies Allergy Verified 07/05/24 10:36 Surgical - Exam Vital Signs Temp Pulse Resp BP Pulse Ox 97.8 F 53 L 18 176/91 98 07/05/24 00:01 07/05/24 00:01 07/05/24 00:01 07/05/24 00:01 07/05/24 00:01 General appearance: The patient is alert, oriented, appears in no acute distress. HET: Head is normocephalic and atraumatic. Pupils are equal and reactive. Neck: Supple. Heart: Regular. Lungs: Equal expansion, normal respiratory effort. Abdomen: Soft, nontender, nondistended. Extremities: Normal skin color and turgor. Neurological: No focal deficits. Strength and sensation are grossly intact. Results - Labs 07/05/24 00:52 07/05/24 00:52 Abnormal Lab Results - Last 24 Hours (Table) 07/05/24 Range/Units 00:52 Glucose 72 L (74-99) mg/dL Diabetes panel 07/05/24 Range/Units 00:52 Sodium 137 (137-145) mmol/L Potassium 4.1 (3.5-5.1) mmol/L Chloride 107 (98-107) mmol/L Carbon Dioxide 27 (22-30) mmol/L BUN 19 (9-20) mg/dL Creatinine 1.04 (0.66-1.25) mg/dL Glucose 72 L (74-99) mg/dL Calcium 8.7 (8.4-10.2) mg/dL AST 23 (17-59) U/L ALT 21 (4-49) U/L Alkaline Phosphatase 110 (38-126) U/L Total Protein 7.2 (6.3-8.2) g/dL Albumin 3.9 (3.5-5.0) g/dL Calcium panel 07/05/24 Range/Units 00:52 Calcium 8.7 (8.4-10.2) mg/dL Albumin 3.9 (3.5-5.0) g/dL Pituitary panel 07/05/24 Range/Units 00:52 Sodium 137 (137-145) mmol/L Potassium 4.1 (3.5-5.1) mmol/L Chloride 107 (98-107) mmol/L Carbon Dioxide 27 (22-30) mmol/L BUN 19 (9-20) mg/dL Creatinine 1.04 (0.66-1.25) mg/dL Glucose 72 L (74-99) mg/dL Calcium 8.7 (8.4-10.2) mg/dL Adrenal panel 07/05/24 Range/Units 00:52 Sodium 137 (137-145) mmol/L Potassium 4.1 (3.5-5.1) mmol/L Chloride 107 (98-107) mmol/L Carbon Dioxide 27 (22-30) mmol/L BUN 19 (9-20) mg/dL Creatinine 1.04 (0.66-1.25) mg/dL Glucose 72 L (74-99) mg/dL Calcium 8.7 (8.4-10.2) mg/dL Total Bilirubin 0.7 (0.2-1.3) mg/dL AST 23 (17-59) U/L ALT 21 (4-49) U/L Alkaline Phosphatase 110 (38-126) U/L Total Protein 7.2 (6.3-8.2) g/dL Albumin 3.9 (3.5-5.0) g/dL - Imaging Comments: CT angiogram head and neck reports moderate left ICA stenosis from atherosclerosis. Brain CT reports no acute hemorrhage, hydrocephalus, or mass effect. Carotid duplex reports right ICA PSV 43.3, ICA/CCA ratio 1.1 Left ICA PSV 106.9, ICA/CCA ratio 2.4 impression reads right no hemodynamically significant stenosis. Left some degree of stenosis suggested in the left due to elevated ratio possibly 50 to 69%. Assessment and Plan Assessment: 1. Left ICA stenosis 50 to 69% 2. Slurred speech with left hand numbness and tingling, likely TIA 3. Atrial fibrillation on Eliquis 4. Coronary artery disease status post CABG 5. Hypertension 6. Hyperlipidemia 7. Diabetes mellitus Plan: 1. Await recommendations from neurology 2. CTA head and neck and carotid duplex reviewed 3. Disc made of CT angiogram head and neck 4. Continue statin, aspirin and Eliquis deferred to recommendations by neurology. Discussed with patient recommendation likely would be to move forward with outpatient surgical intervention if recommended by neurology. Recommend outpa tient follow-up with vascular surgery to further discuss possible transcarotid artery revascularization. Patient will need to be on Plavix 5 days prior to procedure. 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 Thank you for this consultation, we will continue to follow. The impression and plan of care has been dictated as directed. I performed a history and examination of this patient, discussed the same with the dictator. I agree with the dictator's note ,documented as a scribe. Any additional findings or plans will be noted.
[2024-07-05] MEDS ORDERED: FUROSEMIDE 20 MG TAB PO PRN (13:09)
[2024-07-05] MEDS ORDERED: NITROGLYCERIN SL TABS 0.4 MG TAB SUBLINGUAL PRN (13:09)
--- NOTE | 2024-07-05 13:44 | P.CNNES ---
History of Present Illness Consult date: 07/05/24 Requesting physician: Jacoby Reddy Reason for Consult: cva/tia History of Present Illness: Is an 78-year-old gentleman presented emergency department because of left finger numbness as well as facial numbers with slurring the speech as well as difficulty getting his words out. Patient is accompanied with his who is at bedside. Today between 10 to 10:30 PM patient had episode of left finger numbness as well as he noticed numbness over the left cheek, angle of the left mouth and the felt his speech was slurred as well as he was having difficulty getting his words out. The episode lasted about 30 minutes. It seems that the patient has been having transient left finger numbness and cheek numbness for the last 2 days prior to that were brief. Patient does not have any history of stroke but he does have underlying history of diabetes mellitus, hypertension, he does have a history of atrial fibrillation on Eliquis and is compliant taking his Eliquis. Patient states that he was on aspirin in the past but was discontinued by his portfolio consultant Dr. Garcia couple years ago since it was felt it was not needed. He is on Lipitor 40 mg daily. He does have a history of coronary artery disease and he had a stent, CABG. He feels back to baseline. Denies any tobacco use. Denies any illicit drug use or any significant alcohol use. Some of the workup during this hospital visit consisted of: I reviewed the lab workup CT of the head is reported as no acute hemorrhage, hydrocephalus or mass effect. I personally reviewed the CT and agree there is no acute intracranial process. CT angiography of the head and neck is reported as moderate left ICA stenosis from atherosclerosis The ED physician NIH stroke scale was 0. Review of Systems As per HPI. Past Medical History Past Medical History: Coronary Artery Disease (CAD), Diabetes Mellitus, GERD/Reflux, Hearing Disorder / Deafness, Hyperlipidemia, Hypertension, Thyroid Disorder Additional Past Medical History / Comment(s): arthritis, recent SOB and dizziness. History of Any Multi-Drug Resistant Organisms: None Reported Past Surgical History: Appendectomy, Coronary Bypass/CABG, Heart Catheterization With Stent Additional Past Surgical History / Comment(s): 3 stents, CABG 1999 Past Anesthesia/Blood Transfusion Reactions: No Reported Reaction Date of Last Stent Placement:: 05/21/2009 Past Psychological History: No Psychological Hx Reported Smoking Status: Former smoker Past Alcohol Use History: None Reported Past Drug Use History: None Reported - Past Family History Mother Family Medical History: No Reported History Medications and Allergies Home Medications Medication Instructions Recorded Confirmed Type Atorvastatin [Lipitor] 40 mg PO HS 11/13/15 07/05/24 History Levothyroxine Sodium [Synthroid] 200 mcg PO [id number] 11/13/15 07/05/24 History Metoprolol Tartrate [Lopressor] 50 mg PO BID 11/13/15 07/05/24 History Propafenone HCl [Rythmol] 150 mg PO Q8H 11/13/15 07/05/24 History Celecoxib [CeleBREX] 200 mg PO DAILY PRN 11/10/17 07/05/24 History Omeprazole 20 mg PO DAILY 11/10/17 07/05/24 History Apixaban [Eliquis] 5 mg PO BID 10/28/22 07/05/24 History Furosemide [Lasix] 20 mg PO DAILY PRN 10/28/22 07/05/24 History glipiZIDE/METFORMIN HCL 0.5 tab PO BID-W/MEALS 10/28/22 07/05/24 History [glipiZIDE/METFORMIN HCL 5-500 mg] Cetirizine HCl [Zyrtec] 10 mg PO DAILY 07/05/24 07/05/24 History Insulin Glargine,Hum.rec.anlog 35 unit SQ HS 07/05/24 07/05/24 History [Basaglar Kwikpen U-100] Insulin Lispro [humaLOG Kwikpen] 20 unit SQ AC-TID 07/05/24 07/05/24 History Levothyroxine Sodium [Synthroid] 300 mcg PO GONZALEZ 07/05/24 07/05/24 History Nitroglycerin Sl Tabs [Nitrostat] 0.4 mg SUBLINGUAL Q5M PRN 07/05/24 07/05/24 History Valsartan/Hydrochlorothiazide 1 tab PO DAILY 07/05/24 07/05/24 History [Valsartan-Hctz 160-12.5 mg Tab] allopurinoL [Zyloprim] 100 mg PO DAILY 07/05/24 07/05/24 History oxyBUTYnin chloride [oxyBUTYnin 5 mg PO DAILY 07/05/24 07/05/24 History chloride ER] Allergies Allergy/AdvReac Type Severity Reaction Status Date / Time No Known Allergies Allergy Verified 07/05/24 10:36 Physical Examination - Vital Signs Vital Signs: Vital Signs Temp Pulse Resp BP Pulse Ox 07/05/24 12:00 70 162/90 07/05/24 11:30 70 181/103 07/05/24 11:00 73 20 174/107 07/05/24 10:30 75 12 175/106 07/05/24 10:09 73 16 175/106 96 07/05/24 08:30 72 166/86 07/05/24 08:09 97.6 F 65 18 166/86 98 07/05/24 08:00 65 18 07/05/24 07:30 61 12 07/05/24 07:00 69 07/05/24 06:47 61 18 149/95 98 07/05/24 06:30 149/95 07/05/24 05:30 69 173/95 07/05/24 05:21 57 L 18 173/95 96 07/05/24 05:00 63 14 07/05/24 04:30 62 12 167/99 07/05/24 04:00 65 20 07/05/24 03:30 61 21 143/91 07/05/24 03:29 60 18 143/91 98 07/05/24 03:00 57 L 20 07/05/24 02:30 56 L 20 134/94 07/05/24 02:02 57 L 18 134/94 96 07/05/24 02:00 56 L 14 07/05/24 01:30 135/72 07/05/24 01:00 53 L 14 07/05/24 00:30 52 L 12 139/87 07/05/24 00:18 56 L 18 139/87 95 07/05/24 00:15 20 07/05/24 00:01 97.8 F 53 L 18 176/91 98 Intake and Output 07/04/24 07/05/24 07/05/24 22:59 06:59 14:59 Other: Weight 106.594 kg GENERAL: The patient is lying in bed and is not in acute distress. NEUROLOGICAL: Higher mental function: The patient is awake, alert, oriented to self, place and time. Patient is following commands. No aphasia and no neglect. Cranial nerves: The pupils are round, equal and reactive to light and accom modation. Visual arias are full to confrontation throughout. Extraocular movement is intact no nystagmus is noted. Facial sensation is normal to touch throughout. The facial strength is normal throughout. Hearing is normal bilaterally to hand rub. Tongue is midline and moved [id number] without any difficulty. No dysarthria is noted. Shoulder shrug is normal bilaterally. Motor: The strength is 5 over 5 throughout. Normal tone and bulk. Cerebellum: Normal finger to nose bilaterally. Sensation: Sensation is normal to touch throughout. Reflexes (right/left): 2+ throughout. Plantars are downgoing bilaterally. Results - Laboratory Findings CBC and BMP: 07/05/24 00:52 07/05/24 00:52 Abnormal Lab Findings: Abnormal Labs 07/05/24 00:52 Glucose 72 L Assessment and Plan Assessment: This is an 78-year-old gentleman who present emergency department because of left fingers as well as left facial numbness as well as had speech difficulty and slurring of the speech and the episode lasted 30 minutes. Seems the patient has been having for the last 2 days prior to yesterday transient episodes of numbness over the left fingers as well as the cheek. CT angiography shows moderate left ICA stenosis. NIH stroke scale was 0 in the ED Likely transient ischemic attack Moderate left ICA stenosis and this appears to be symptomatic which can cause his expressive aphasia and dysarthria but regarding the numbness I would expected to be on the other side. Hypertensive urgency Diabetes mellitus Hypertension Underlying history of A-fib on Eliquis History of coronary artery disease status post stent History of CABG Plan: Patient is on home dose of Eliquis 5 mg twice daily. In addition start him on aspirin 81 mg daily. Patient was given aspirin 324 mg once. He is resumed on his home medication of Lipitor 40 mg nightly and that sufficient for secondary stroke prophylaxis I ordered MRI of the brain, 2D echo. Lipid panel, TSH, vitamin B12 and folate are ordered and pending Continue neurochecks Cardiac monitoring PT OT and ELECTRICIAN BUS are consulted Vascular surgery team is consulted Will defer the rest of the medical management to primary and other specialist For DVT prophylaxis the patient is on Eliquis The plan discussed with the patient and his was at bedside Thank you for the consultation. Time with Patient: Greater than 30
[2024-07-05] MEDS: PROPAFENONE 150 MG TAB PO SCH (14:35)
[2024-07-05] MEDS: ASPIRIN 81 MG PO SCH (14:35)
[2024-07-05] MEDS: METOPROLOL TARTRATE 50 MG TAB PO SCH (19:46)
[2024-07-05 20:20] LABS: Glucose,Whole Blood 230 mg/dL (70-110)
[2024-07-05] MEDS: ATORVASTATIN 40 MG TAB PO SCH (20:23)
[2024-07-05] MEDS: APIXABAN 5 MG TAB PO SCH (20:23)
[2024-07-05] MEDS: metFORMIN 500 MG TAB PO SCH (20:24)
[2024-07-06] MEDS: LEVOTHYROXINE 100 MCG TAB PO SCH (06:05)
--- NOTE | 2024-07-06 06:54 | P.PN ---
Subjective This is a pleasant 78 years old male with past medical history of multiple problems as below Presents because of 1 hour duration of slurred speech and numbness in his left finger and then spread more proximally patient says it was up to his mouth where it was now. Currently all the symptoms resolved once he came to the hospital He has mild headache but no dizziness. No blurred vision. Currently no slurred speech or difficulty talking. Patient currently denies any weakness. He does not have any more speech difficulty He denies chest pain or dyspnea. No upper GI/ symptoms. He denies smoking alcohol or illicit drugs. He says he was taking his Eliquis as home as prescribed. 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 Patient hemodynamically stable, blood pressure 123/92. Heart rate 57. Patient is afebrile. He has unremarkable CBC, basic metabolic panel, liver enzymes, INR and troponin Chest x-ray shows minimal vascular congestion CT of the brain showing no acute process, mass effect or hydrocephalus CTA of the head and neck showing moderate left internal carotid artery stenosis with no other aneurysmal dilatation, stenosis or dissection EKG showing A-fib at a rate of 60. 07/06 No slurred speech, no finger numbness today No headache. Patient is going for MRI later on today. Echocardiogram is pending Check B12 and TSH are pending Patient remains on Eliquis and aspirin. Importance of adherence to treatment explained. Patient confirms he has this medication at home Objective - Vital Signs Vital signs: Vital Signs Temp 97.6 F 07/05/24 08:09 Pulse 63 07/06/24 06:22 Resp 18 07/06/24 06:22 BP 162/83 07/06/24 06:22 Pulse Ox 98 07/06/24 06:22 FiO2 Intake & Output 07/05/24 07/05/24 07/06/24 06:59 18:59 06:59 Weight 106.594 kg - Exam GENERAL: The patient is alert and oriented x3, not in any acute distress. Well developed, well nourished. HEENT: Pupils are round and equally reacting to light. EOMI. No scleral icterus. No conjunctival pallor. Normocephalic, atraumatic. No pharyngeal erythema. No thyromegaly. CARDIOVASCULAR: S1 and S2 present. No murmurs, rubs, or gallops. PULMONARY: Chest is clear to auscultation, no wheezing , no crackles. ABDOMEN: Soft, nontender, nondistended, normoactive bowel sounds. No palpable organomegaly. MUSCULOSKELETAL: No joint swelling or deformity. EXTREMITIES: No cyanosis, clubbing, or pedal edema. NEUROLOGICAL: Gross neurological examination did not reveal any focal deficits. SKIN: No rashes. no petechiae. - Labs CBC & Chem 7: 07/05/24 00:52 07/05/24 00:52 Labs: Abnormal Lab Results - Last 24 Hours (Table) 07/05/24 Range/Units 20:19 POC Glucose (mg/dL) 230 H (70-110) mg/dL Assessment and Plan Assessment: Transient period of slurred speech and left upper extremity numbness, rule out TIA versus stroke, versus other Moderate left internal carotid artery stenosis Chronic atrial fibrillation on Eliquis Hypertension Hyperlipidemia Diabetes mellitus Plan: Neurology service were consulted from ER Will check carotid duplex Check vitamin B12, folate and TSH Vascular surgery team consult for his carotid artery disease Labs and medication were reviewed.. Continue same treatment. Continue with symptomatic treatment. Resume home medication. Monitor labs and vitals. DVT and GI prophylaxis. Further recommendations as per clinical course of the patient DVT prophylaxis: Eliquis GI Prophylaxis: Pepcid PT/OT: Pending Prognosis is guarded
[2024-07-06] MEDS: allopurinoL 100 MG TAB PO SCH (08:24)
[2024-07-06] MEDS: FAMOTIDINE 20 MG/2 ML VIAL IV SCH (08:24)
[2024-07-06] MEDS: LORATADINE 10 MG TAB PO SCH (08:25)
[2024-07-06] MEDS: OXYBUTYNIN XL 5 MG TAB.ER.24 PO SCH (08:25)
--- NOTE | 2024-07-06 11:11 | P.PN ---
Subjective Progress Note Date: 07/06/24 Principal diagnosis: Carotid stenosis Patient seen and examined today as a follow-up. He remains in the emergency department waiting a bed. He denies any focal deficits through the night. No new focal deficits. Denies any shortness of breath or chest pain. He is awaiting echocardiogram and brain MRI. Objective - Vital Signs Vital signs: Vital Signs Temp 97.9 F 07/06/24 07:26 Pulse 71 07/06/24 07:26 Resp 16 07/06/24 07:26 BP 162/83 07/06/24 06:22 Pulse Ox 98 07/06/24 07:26 FiO2 - Exam General appearance: The patient is alert, oriented, appears in no acute distress. HET: Head is normocephalic and atraumatic. Pupils are equal and reactive. Neck: Supple. Heart: Regular. Lungs: Equal expansion, normal respiratory effort. Abdomen: Soft, nontender, nondistended. Extremities: Normal skin color and turgor. Neurological: No focal deficits. Strength and sensation are grossly intact. - Labs CBC & Chem 7: 07/05/24 00:52 07/05/24 00:52 Labs: Abnormal Lab Results - Last 24 Hours (Table) 07/05/24 Range/Units 20:19 POC Glucose (mg/dL) 230 H (70-110) mg/dL Assessment and Plan Assessment: 1. Left ICA stenosis 50 to 69% 2. Slurred speech with left hand numbness and tingling, likely TIA 3. Atrial fibrillation on Eliquis 4. Coronary artery disease status post CABG 5. Hypertension 6. Hyperlipidemia 7. Diabetes mellitus Plan: 1. 2. CTA head and neck and carotid duplex reviewed 3. Disc made of CT angiogram head and neck 4. Continue statin, if patient undergoes TCAR patient will need to be started on Plavix 5 days prior. 5. Echocardiogram and MRI of brain pending Discussed with patient recommendation likely would be to move forward with outpatient surgical intervention if recommended by neurology. Recommend outpatient follow-up with vascular surgery to further discuss possible transcarotid artery revascularization. Patient will need to be on Plavix 5 days prior to procedure. Patient is cleared from vascular surgery for discharge. Thank you for this consultation, we will continue to follow. The impression and plan of care has been dictated as directed. I performed a history and examination of this patient, discussed the same with the dictator. I agree with the dictator's note ,documented as a scribe. Any additional findings or plans will be noted.
--- NOTE | 2024-07-06 15:40 | MR ---
EXAMINATION TYPE: MR brain wo con DATE OF EXAM: 07/06/2024 3:33 PM COMPARISON: 07/05/2024. CLINICAL INDICATION: Male, 78 years old with history of stroke. aphasia, dysarthria; PHH, Stroke, ap hasia, dysarthria TECHNIQUE: Multi planar, multi sequence imaging was performed through the brain including: T1, T2, In version recovery, Diffusion weighted imaging, and gradient echo imaging. No gadolinium was given. FINDINGS: Mild cerebral atrophy with proportional dilation of ventricular system. Scattered foci of high T2 s ignal intensity are seen within the periventricular white matter. Midline structures show no abnormal ity. Diffusion-weighted imaging shows no evidence of restricted diffusion. The susceptibility weighte d images do not reveal any evidence for micro-hemorrhage. The bone marrow signal is within normal limits. Paranasal sinuses and mastoid air cells: No significant paranasal sinus disease. Visualized orbits: Orbital contents are intact. IMPRESSION: 1. No evidence of intracranial mass or acute/subacute infarct. 2. Nonspecific white matter changes, likely secondary to small vessel ischemic disease. [facility], , 07/06/2024 3:37 PM
[2024-07-06 16:38] LABS: LDL Cholesterol,Calculated 57.8 mg/dL (0.0-131.0)
[2024-07-06] MEDS: glipiZIDE 5 MG TAB PO SCH (17:47)
[2024-07-06 20:45] LABS: Glucose,Whole Blood 202 mg/dL (70-110)
[2024-07-07 06:31] LABS: Glucose,Whole Blood 169 mg/dL (70-110)
[2024-07-07] MEDS: CLOPIDOGREL 75 MG TAB PO SCH (09:43)
--- NOTE | 2024-07-07 10:38 | CA ---
Transthoracic Echo Report Name: Jeyson Bailey Age: 78 Gender: M : 1945 Exam Date: 07/06/2024 11:00 Exam Location: [place] [facility] Ht (in): 72 Wt (lb): 235 Ordering Physician: Chris Hung MD Attending/Referring Phys: Metal Slitter Nadege Gudino RDCS Procedure CPT: Indications: acute CVA Cardiac Hx: Technical Quality: Technically difficult study Contrast 1: Definity Total Dose (mL): 1 Contrast 2: Total Dose (mL): MEASUREMENTS (Male / Female) Normal Values 2D ECHO LV Diastolic Diameter PLAX 4.6 cm 4.2 - 5.9 / 3.9 - 5.3 cm LV Systolic Diameter PLAX 3.0 cm IVS Diastolic Thickness 1.1 cm 0.6 - 1.0 / 0.6 - 0.9 cm LVPW Diastolic Thickness 1.1 cm 0.6 - 1.0 / 0.6 - 0.9 cm LV Relative Wall Thickness 0.5 LVOT Diameter 2.3 cm LV Diastolic Volume MOD BP 95.8 cm??? 67 - 155 / 56 - 104 cm??? LV Systolic Volume MOD BP 30.7 cm??? 22 - 58 / 19 - 49 cm??? LV Ejection Fraction MOD BP 68.0 % >= 55 % LV Cardiac Index MOD BP 1713.0 cm???/min???m??? LV Diastolic Volume MOD 4C 100.0 cm??? LV Systolic Volume MOD 4C 32.1 cm??? LV Ejection Fraction MOD 4C 67.9 % LV Cardiac Index MOD 4C 1786.3 cm???/min???m??? LV Diastolic Length 4C 7.6 cm LV Systolic Length 4C 6.2 cm LV Diastolic Volume MOD 2C 87.7 cm??? LV Systolic Volume MOD 2C 25.4 cm??? LV Ejection Fraction MOD 2C 71.0 % LV Cardiac Index MOD 2C 1638.7 cm???/min???m??? LV Diastolic Length 2C 7.3 cm LV Systolic Length 2C 5.4 cm LA Volume 95.1 cm??? 18 - 58 / 22 - 52 cm??? LA Volume Index 40.4 cm???/m??? 16 - 28 cm???/m??? Ascending Aorta Diameter 3.5 cm M-MODE LV Diastolic Diameter MM 4.6 cm 4.2 - 5.9 / 3.9 - 5.3 cm LV Systolic Diameter MM 3.0 cm LV Cardiac Index MM Teich 1676.2 cm???/min???m??? IVS Diastolic Thickness MM 1.3 cm 0.6 - 1.0 / 0.6 - 0.9 cm LVPW Diastolic Thickness MM 1.5 cm 0.6 - 1.0 / 0.6 - 0.9 cm LV Relative Wall Thickness MM 0.6 0.24 - 0.42 / 0.22 - 0.42 LV Mass Index MM 111.9 g/m??? 49 - 115 / 43 - 95 g/m??? DOPPLER AV Peak Velocity 284.2 cm/s AV Peak Gradient 32.3 mmHg AV Mean Velocity 207.8 cm/s AV Mean Gradient 19.2 mmHg AV Velocity Time Integral 63.6 cm LVOT Peak Velocity 86.9 cm/s LVOT Peak Gradient 3.0 mmHg LVOT Velocity Time Integral 19.6 cm LVOT Stroke Volume 78.4 cm??? LVOT Stroke Volume Index 34.4 ml/m??? LVOT Cardiac Index 2064.1 cm???/min???m??? AV Area Cont Eq vti 1.2 cm??? AV Area Cont Eq pk 1.2 cm??? TR Peak Velocity 284.7 cm/s TR Peak Gradient 32.4 mmHg Right Atrial Pressure 5.0 mmHg Pulmonary Artery Systolic Pressu 37.4 mmHg Right Ventricular Systolic Press 37.4 mmHg PV Peak Velocity 72.3 cm/s PV Peak Gradient 2.1 mmHg FINDINGS Left Ventricle Left ventricular ejection fraction is estimated at 55-60 %. Moderate concentric LVH. Mildly increased septal wall thickness. Moderately increased posterior wall thickness. Severely increased left ventricular relative wall thickness. No obvious regional wall motion abnormalities. Right Ventricle Moderate right ventricular dilatation with mildly reduced function. Mild pulmonary hypertension. Right Atrium Mild right atrial dilatation. Left Atrium Severely increased left atrial volume. Mildly increased left atrial area. Mitral Valve Mitral valve thickened. No evidence for mitral valve prolapse. No mitral stenosis. Mild mitral regurgitation. Aortic Valve Trileaflet aortic valve. Diffuse thickening of the aortic valve cusps with reduced excursion. Mild to moderate aortic stenosis. Mean gradient 19mmHg, Tricuspid Valve Structurally normal tricuspid valve. No tricuspid stenosis. Mild tricuspid regurgitation. Pulmonic Valve Pulmonic valve not well visualized. No pulmonic stenosis. No pulmonic regurgitation. Pericardium No pericardial effusion. Aorta Normal size aortic root and proximal ascending aorta. CONCLUSIONS Normal LV size and systolic function with moderate concentric LVH. Moderate aortic stenosis with calcification restriction of aortic valve leaflets. There is mild aortic insufficiency. Mild mitral and tricuspid regurgitation. No significant pulmonary hypertension. No pericardial effusion Previewed by: Dr. Kaleb Olson MD (Electronically Signed) Final Date: 07 July 2024 10:37
[2024-07-07 11:44] LABS: Glucose,Whole Blood 186 mg/dL (70-110)
[2024-07-07 14:11] VITALS: BP 133/72; PULSE 87; RESP 17; TEMP 97.4
--- NOTE | 2024-07-07 14:55 | P.PN ---
Subjective Progress Note Date: 07/07/24 Patient feels he is back to baseline. Denies of any new neurological issues Aspirin was discontinued and he was placed on Plavix per vascular surgery recommendation. Objective - Vital Signs Vital signs: Vital Signs Temp 97.4 F L 07/07/24 13:24 Pulse 87 07/07/24 13:24 Resp 17 07/07/24 13:24 BP 133/72 07/07/24 13:24 Pulse Ox 100 07/07/24 13:24 FiO2 Intake & Output 07/06/24 07/07/24 07/07/24 18:59 06:59 18:59 Weight 106.594 kg 110 kg Other: # Voids 2 - Exam GENERAL: The patient is lying in bed and is not in acute distress. NEUROLOGICAL: Higher mental function: The patient is awake, alert, oriented to self, place and time. Patient is following commands. No aphasia and no neglect. Cranial nerves: The pupils are round, equal and reactive to light and accommodation. Visual arias are full to confrontation throughout. Extraocular movement is intact no nystagmus is noted. Facial sensation is normal to touch throughout. The facial strength is normal throughout. Hearing is normal bilaterally to hand rub. Tongue is midline and moved [id number] without any difficulty. No dysarthria is noted. Shoulder shrug is normal bilaterally. Motor: The strength is 5 over 5 throughout. Normal tone and bulk. Cerebellum: Normal finger to nose bilaterally. Sensation: Sensation is normal to touch throughout. Reflexes (right/left): 2+ throughout. Plantars are downgoing bilaterally. Some of the workup during this hospital visit consisted of: Lipid Panel is triglyceride 131, cholesterol 124, LDL is 57 and HDL is 40 TSH is 1.740 Vitamin B12 is 853 Serum folate is 13.30 CT of the head is reported as no acute hemorrhage, hydrocephalus or mass effect. I personally reviewed the CT and agree there is no acute intracranial process. CT angiography of the head and neck is reported as moderate left ICA stenosis from atherosclerosis 2D echo: Normal left ventricle size and systolic function with moderate concentric left ventricle hypertrophy. Moderate aortic stenosis with calcification and restriction of aortic valve leaflet. MRI of the brain is reported as no evidence of intracranial mass or acute/subacute infarct. Nonspecific white matter changes, likely secondary to small vessel ischemic disease per - Labs CBC & Chem 7: 07/05/24 00:52 07/05/24 00:52 Labs: Abnormal Lab Results - Last 24 Hours (Table) 07/06/24 07/07/24 07/07/24 Range/Units 20:44 06:30 11:41 POC Glucose (mg/dL) 202 H 169 H 186 H (70-110) mg/dL Assessment and Plan Assessment: This is an 78-year-old gentleman who present emergency department because of left fingers as well as left facial numbness as well as had speech difficulty and slurring of the speech and the episode lasted 30 minutes. Seems the patient has been having for the last 2 days prior to yesterday transient episodes of numbness over the left fingers as well as the cheek. CT angiography shows moderate left ICA stenosis. NIH stroke scale was 0 in the ED Likely transient ischemic attack. MRI Brain is unremarkable for acute or subacute ischemic stroke Moderate left ICA stenosis and this appears to be symptomatic which can cause his expressive aphasia and dysarthria but regarding the numbness I would expected to be on the other side. Hypertensive urgency Diabetes mellitus Hypertension Underlying history of A-fib on Eliquis History of coronary artery disease status post stent History of CABG Plan: Patient is on home dose of Eliquis 5 mg twice daily. In addition start him on aspirin 81 mg daily vascular want him to be on Plavix 75 mg daily for surgical intervention of the carotid for TCAR and they need him on 5 days of Plavix. From neurology perspective I am in agreement of discontinuing aspirin and for the patient to be on Plavix. Patient is on Lipitor 40 g nightly and that sufficient for secondary stroke prophylaxis. Continue neurochecks Cardiac monitoring PT OT and CERTIFICATION TECHNICIAN are consulted Vascular surgery team is on board. Will defer the rest of the medical management to primary and other specialist For DVT prophylaxis the patient is on Eliquis Upon discharge patient to follow-up with a neurologist as an outpatient within 2 weeks The plan discussed with the patient and his was at bedside There is no further neurological workup. Will sign off. Please reconsult if needed Time with Patient: Less than 30
--- NOTE | 2024-07-07 15:45 | CDI ---
Documentation Clarification Form Date: 07/07/2024 03:38:06 PM From: Temitope Schulte RN, CCDS Phone: [phone] Admit Date: 07/05/2024 03:19:00 AM Patient Name: Jeyson Bailey Visit Number: [id number] Discharge Date: ATTENTION: The Clinical Documentation Specialists (CDI) and [facility] Coding Staff appreciate your assistance in clarifying documentation. Please respond to the clarification below the line at the bottom and electronically sign. The CDI & [facility] Coding staff will review the response and follow-up if needed. Please note: Queries are made part of the Legal Health Record. If you have any questions, please contact the author of this message via ITS. Doctor/Provider: Chris Hung TIA is documented the Neurology consult and subsequent progress note. Additional clarification regarding the etiology of the TIA is requested. Patient history/risk factors: Coronary Artery Disease (CAD), Diabetes Mellitus, Hyperlipidemia, Hypertension, Thyroid Disorder, Atrial fibrillation Clinical indicators: 78-year-old male presented with left finger, facial numbness with slurring of speech. 07/05 VS: 176/91 53 18 97.8 98% RA 07/05 CT head: no acute hemorrhage, hydrocephalus or mass effect. 07/05 CT angiography head/neck: moderate left ICA stenosis possibly 50-69% from atherosclerosis 07/06 Brain MRI: No evidence of intracranial mass or acute/subacute infarct. Nonspecific white matter changes, likely secondary to small vessel ischemic disease 07/05 Echo: LVEF 55-60% Moderate aortic stenosis with calcification restriction of aortic valve leaflets. There is mild aortic insufficiency. Mild mitral and tricuspid regurgitation. The ED physician NIH stroke scale was 0. Neuro consult: Likely transient ischemic attack Moderate left ICA stenosis and this appears to be symptomatic which can cause his expressive aphasia and dysarthria but regarding the numbness I would expected to be on the other side Treatment: Cardiac Monitoring Eliquis 5 MG PO BID, ASA PO Daily, Lipitor 40MG HS, Continue neurochecks per orders PT OT and ELECTRICAL SOFTWARE ENGINEER are consulted Please clarify the etiology of the TIA, if known: [ X ] TIA due to moderate left ICA Stenosis [ ] Other (please specify): [ ] Etiology unknown or Unable to determine (Template Last Revised: September 2020) MTDD
[2024-07-07 16:23] LABS: Glucose,Whole Blood 183 mg/dL (70-110)
[2024-07-07] MEDS: INSULIN ASPART (NovoLOG) 100 UNIT/ML VIAL SQ SCH (17:19)
[2024-07-07] MEDS ORDERED: FAMOTIDINE 20 MG TAB PO SCH (21:00)
--- NOTE | 2024-07-07 23:41 | P.DS ---
Providers Date of admission: 07/05/24 03:19 Attending physician: Zoe Boykin Consults: 07/05/24 03:19 Consult Physician Routine Consulting Provider: Chris Hung Consult Reason/Comments: cva/tia Do you want consulting provider notified?: Yes 07/05/24 06:32 Consult Physician Routine Consulting Provider: Schuyler Metcalf Consult Reason/Comments: ICA stenosis Do you want consulting provider notified?: Yes Primary care physician: [facility] Course: Diagnoses: Transient period of slurred speech and left upper extremity numbness, rule out TIA versus stroke, versus other Moderate left internal carotid artery stenosis Chronic atrial fibrillation on Eliquis Hypertension Hyperlipidemia Diabetes mellitus Moderate aortic stenosis Hospital course: This is a pleasant 78 years old male with past medical history of multiple problems as below Presents because of 1 hour duration of slurred speech and numbness in his left finger and then spread more proximally patient says it was up to his mouth where it was now. Currently all the symptoms resolved once he came to the hospital Patient evaluated by neurologist. Patient continued on Eliquis. Neurologist first started him on aspirin. Later on vascular surgery switching to Plavix. As per workup CT of the head and neck was showing moderate left internal carotid artery stenosis, as such vascular surgery evaluated the patient and recommended to start the patient on the Plavix for at least 5 days before he follows up with Dr. mcclain as an outpatient in 07/11 to discuss possible surgical treatment for his carotid artery stenosis Patient symptoms resolved completely There was concern of hemorrhagic disease to the eyes. Patient was told by his petrographer Dr. Brewster to try to limit or avoid anticoagulants or antiplatelet medication for risk of eye bleed. I called his Dr. Brewster, who is currently reviewed the case and referred that he saw him more than a year ago for left retinal vein disease which is most likely related to the high blood pressure disease. An embolic or hemorrhagic source although there was some area of hemorrhage. As Dr. Mccain there is no contraindication from his perspective to use full dose of Eliquis 5 mg as well as Plavix. Nevertheless the patient was explained there is risk of bleeding into the eye, brain or GI and other places, patient and at bedside understand these risks and they are agreeable. Patient states that he has Eliquis at home and Plavix prescription was provided for him. Patient denies any other symptoms and is eager to go home today MRI of the brain was negative for acute process. Echocardiogram showed moderate aortic stenosis, patient aware with this problem and discomfort by the . Patient was instructed to follow-up with refrigeration mechanic helper Dr. Garcia and he agrees. Patient denies recent or old history of chest pain dyspnea or syncope because his aortic stenosis is moderate and asymptomatic Patient was cleared for discharge by vascular surgery team and neurologist Problems and management plan were discussed with the patient and he verbalized understanding and acceptance Patient was found stable and can be discharged home in guarded prognosis however he needs follow-up as an outpatient. Patient was instructed to follow up with PCP Dr. Richey within one week and patient agrees Patient was instructed to follow-up with his neurologist Dr. Bui 22 weeks. Went with vascular surgery as above Patient was instructed to follow-up with his refrigeration mechanic helper Dr. Garcia in 1 to 2 weeks for his aortic stenosis. And patient was instructed to follow-up with Dr. Mccain his petrographer and 7 to 10 days after discharge and he agreeable Physical exam Gen: patient is a AAOx3, no distress CVS: S1-S2, RRR, no murmur Lungs: B/L CTA, no wheezing Abdomen: soft, no distention, no tenderness, positive bowel sounds Extremity: no leg edema or induration Time spent more than 35 minutes Patient Condition at Discharge: Fair Plan - Discharge Summary Discharge Rx Participant: No New Discharge Prescriptions: New Clopidogrel [Plavix] 75 mg PO DAILY #30 tab Continue Levothyroxine Sodium [Synthroid] 200 mcg PO MOTUWETHFRSA Propafenone HCl [Rythmol] 150 mg PO Q8H Metoprolol Tartrate [Lopressor] 50 mg PO BID Atorvastatin [Lipitor] 40 mg PO HS Omeprazole 20 mg PO DAILY Valsartan/Hydrochlorothiazide [Valsartan-Hctz 160-12.5 mg Tab] 1 tab PO DAILY Cetirizine HCl [Zyrtec] 10 mg PO DAILY oxyBUTYnin chloride [oxyBUTYnin chloride ER] 5 mg PO DAILY Furosemide [Lasix] 20 mg PO DAILY PRN PRN Reason: Edema Apixaban [Eliquis] 5 mg PO BID Levothyroxine Sodium [Synthroid] 300 mcg PO GONZALEZ Nitroglycerin Sl Tabs [Nitrostat] 0.4 mg SUBLINGUAL Q5M PRN PRN Reason: Chest Pain Insulin Lispro [humaLOG Kwikpen] 20 unit SQ AC-TID Insulin Glargine,Hum.rec.anlog [Basaglar Kwikpen U-100] 35 unit SQ HS allopurinoL [Zyloprim] 100 mg PO DAILY Discontinued Celecoxib [CeleBREX] 200 mg PO DAILY PRN PRN Reason: Pain No Action glipiZIDE/METFORMIN HCL [glipiZIDE/METFORMIN HCL 5-500 mg] 0.5 tab PO BID- W/MEALS Discharge Medication List Atorvastatin [Lipitor] 40 mg PO HS 11/13/15 [History] Levothyroxine Sodium [Synthroid] 200 mcg PO MOTUWETHFRSA 11/13/15 [History] Metoprolol Tartrate [Lopressor] 50 mg PO BID 11/13/15 [History] Propafenone HCl [Rythmol] 150 mg PO Q8H 11/13/15 [History] Omeprazole 20 mg PO DAILY 11/10/17 [History] Apixaban [Eliquis] 5 mg PO BID 10/28/22 [History] Furosemide [Lasix] 20 mg PO DAILY PRN 10/28/22 [History] glipiZIDE/METFORMIN HCL [glipiZIDE/METFORMIN HCL 5-500 mg] 0.5 tab PO BID- W/MEALS 10/28/22 [History] Cetirizine HCl [Zyrtec] 10 mg PO DAILY 07/05/24 [History] Insulin Glargine,Hum.rec.anlog [Basaglar Kwikpen U-100] 35 unit SQ HS 07/05/24 [History] Insulin Lispro [humaLOG Kwikpen] 20 unit SQ AC-TID 07/05/24 [History] Levothyroxine Sodium [Synthroid] 300 mcg PO GONZALEZ 07/05/24 [History] Nitroglycerin Sl Tabs [Nitrostat] 0.4 mg SUBLINGUAL Q5M PRN 07/05/24 [History] Valsartan/Hydrochlorothiazide [Valsartan-Hctz 160-12.5 mg Tab] 1 tab PO DAILY 07/05/24 [History] allopurinoL [Zyloprim] 100 mg PO DAILY 07/05/24 [History] oxyBUTYnin chloride [oxyBUTYnin chloride ER] 5 mg PO DAILY 07/05/24 [History] Clopidogrel [Plavix] 75 mg PO DAILY #30 tab 07/07/24 [Rx] Follow up Appointment(s)/Referral(s): Victor M Zarate MD [STAFF PHYSICIAN] - 1 Week Zaki Mcclain DO [STAFF PHYSICIAN] - 07/12/24 2:45 pm Jeyson Grissom MD [Primary Care Provider] - 1-2 days Claudy Brewster MD [STAFF PHYSICIAN] - 1 Week Sofia Arenas MD [Medical Doctor] - 1 Week Activity/Diet/Wound Care/Special Instructions: heart healthy diet activity is restricted till you see your doctor Discharge Disposition: HOME SELF-CARE
[2024-07-10] MEDS ORDERED: LEVOTHYROXINE 100 MCG TAB PO SCH (06:30)
== END 2024-07-07 17:44 | disposition home or self-care (01) | DRG 68 ==
LOC: EC 23:57 → 3SCARD 07-05 03:19 → 4SSUR 07-06 11:35
PROVIDERS: ADMIT Hospitalist; ATTEND Hospitalist
DX: I65.22 Occlusion and stenosis of left carotid artery (principal); I48.20 Chronic atrial fibrillation, unspecified; R47.01 Aphasia; E11.9 Type 2 diabetes mellitus without complications; E78.5 Hyperlipidemia, unspecified; I10 Essential (primary) hypertension; I16.0 Hypertensive urgency; R29.700 NIHSS score 0; I35.0 Nonrheumatic aortic (valve) stenosis; I25.10 Atherosclerotic heart disease of native coronary artery without angina pectoris; E07.9 Disorder of thyroid, unspecified; Z87.891 Personal history of nicotine dependence; Z79.4 Long term (current) use of insulin; Z79.82 Long term (current) use of aspirin; Z95.5 Presence of coronary angioplasty implant and graft; Z79.890 Hormone replacement therapy; Z95.1 Presence of aortocoronary bypass graft
CPT/HCPCS: 36415; 70450; 70496; 70498; 70551; 71046; 80053; 80061; 82550; 82607; 82746; 84443; 84484; 85025; 85610; 85730; 93005; 93306; 93880; 96374; 99285

== ENCOUNTER 2024-07-09 19:14 | Observation (INO) | payer MEDICARE ==
[2024-07-09 19:39] LABS: Glucose,Whole Blood 175 mg/dL (70-110)
--- NOTE | 2024-07-09 19:57 | ED ---
General Adult HPI - General Chief complaint: Neuro Symptoms/Deficit Stated complaint: Stroke S/S Time Seen by Provider: 07/09/24 19:20 Source: patient, RN notes reviewed, old records reviewed Mode of arrival: ambulatory Limitations: no limitations - History of Present Illness Initial comments: This is an 78-year-old male who presents to the emergency department complaining of slight slurred speech and left handed numbness. Patient states the numbness in the hand is gone away both started about 5:30 PM. Patient states his speech remains slurred. Patient states that he also has a bad headache. Patient states she was just here for the same symptoms on Thursday and stayed till when he was discharged. He states that they told him his left carotid needed surgery. Patient states he had similar symptoms yesterday in the middle of the day and is well today about noon and both times they resolved on their own but tonight the symptoms were not resolving and he had a very bad headache so he went to come to the emergency department. Patient denies any fever chills or cough. Patient has chest pain difficulty breathing shortness of breath. - Related Data Home Medications Medication Instructions Recorded Confirmed Atorvastatin [Lipitor] 40 mg PO HS 11/13/15 07/05/24 Levothyroxine Sodium [Synthroid] 200 mcg PO MOTUWETHFRSA 11/13/15 07/05/24 Metoprolol Tartrate [Lopressor] 50 mg PO BID 11/13/15 07/05/24 Propafenone HCl [Rythmol] 150 mg PO Q8H 11/13/15 07/05/24 Omeprazole 20 mg PO DAILY 11/10/17 07/05/24 Apixaban [Eliquis] 5 mg PO BID 10/28/22 07/05/24 Furosemide [Lasix] 20 mg PO DAILY PRN 10/28/22 07/05/24 glipiZIDE/METFORMIN HCL 0.5 tab PO BID-W/MEALS 10/28/22 07/05/24 [glipiZIDE/METFORMIN HCL 5-500 mg] Cetirizine HCl [Zyrtec] 10 mg PO DAILY 07/05/24 07/05/24 Insulin Glargine,Hum.rec.anlog 35 unit SQ HS 07/05/24 07/05/24 [Basaglar Marianoikpen U-100] Insulin Lispro [humaLOG Kwikpen] 20 unit SQ AC-TID 07/05/24 07/05/24 Levothyroxine Sodium [Synthroid] 300 mcg PO GONZALEZ 07/05/24 07/05/24 Nitroglycerin Sl Tabs [Nitrostat] 0.4 mg SUBLINGUAL Q5M PRN 07/05/24 07/05/24 Valsartan/Hydrochlorothiazide 1 tab PO DAILY 07/05/24 07/05/24 [Valsartan-Hctz 160-12.5 mg Tab] allopurinoL [Zyloprim] 100 mg PO DAILY 07/05/24 07/05/24 oxyBUTYnin chloride [oxyBUTYnin 5 mg PO DAILY 07/05/24 07/05/24 chloride ER] Previous Rx's Medication Instructions Recorded Clopidogrel [Plavix] 75 mg PO DAILY #30 tab 07/07/24 Allergies Allergy/AdvReac Type Severity Reaction Status Date / Time No Known Allergies Allergy Verified 07/09/24 19:23 Review of Systems ROS Statement: Those systems with pertinent positive or pertinent negative responses have been documented in the HPI. ROS Other: All systems not noted in ROS Statement are negative. Past Medical History Past Medical History: Coronary Artery Disease (CAD), Diabetes Mellitus, GERD/Reflux, Hearing Disorder / Deafness, Hyperlipidemia, Hypertension, Thyroid Disorder Additional Past Medical History / Comment(s): arthritis, recent SOB and dizziness. History of Any Multi-Drug Resistant Organisms: None Reported Past Surgical History: Appendectomy, Coronary Bypass/CABG, Heart Catheterization With Stent Additional Past Surgical History / Comment(s): 3 stents, CABG 1999, "tendon cut in right root" Past Anesthesia/Blood Transfusion Reactions: No Reported Reaction Date of Last Stent Placement:: 05/21/2009 Past Psychological History: No Psychological Hx Reported Smoking Status: Former smoker Past Alcohol Use History: None Reported Past Drug Use History: None Reported - Past Family History Mother Family Medical History: No Reported History General Exam - General Exam Comments Initial Comments: GENERAL: Patient is well-developed and well-nourished. Patient is nontoxic and well- hydrated and is in no acute distress. ENT: Neck is soft and supple. No significant lymphadenopathy is noted. Oropharynx is clear. Moist mucous membranes. Neck has full range of motion without eliciting any pain. EYES: The sclera were anicteric and conjunctiva were pink and moist. Extraocular movements were intact and pupils were equal round and reactive to light. Eyelid s were unremarkable. PULMONARY: Unlabored respirations. Good breath sounds bilaterally. No audible rales rhonchi or wheezing was noted. CARDIOVASCULAR: There is a regular rate and rhythm without any murmurs gallops or rubs. ABDOMEN: Soft and nontender with normal bowel sounds. SKIN: Skin is clear with no lesions or rashes and otherwise unremarkable. NEUROLOGIC: Patient is alert and oriented x3. Cranial nerves II through XII are grossly intact. Motor and sensory are also intact. Slurred speech mild NIH is 1 MUSCULOSKELETAL: Normal extremities with adequate strength and full range of motion. LYMPHATICS: No significant lymphadenopathy is noted PSYCHIATRIC: Normal psychiatric evaluation. Limitations: no limitations Course Vital Signs 07/09/24 07/09/24 07/09/24 19:16 20:00 20:15 Temperature 98.7 F Pulse Rate 73 79 76 Respiratory 18 18 18 Rate Blood Pressure 164/117 168/88 149/87 O2 Sat by Pulse 98 98 97 Oximetry Medical Decision Making - Medical Decision Making EKG is interpreted by myself. EKG shows atrial flutter at 77 bpm QRS is 105 QT interval 4 6 QTc is 437. Patient EKG shows no ST segment elevation or depress ion Was pt. sent in by a medical professional or institution ([facility] Sanchez, BAKERY WORKER, urgent care, hospital, or fpc...) When possible be specific @ -No Did you speak to anyone other than the patient for history (EMS, parent, family, police, friend...)? What history was obtained from this source @ -No Did you review nursing and triage notes (agree or disagree)? Why? @ -I reviewed and agree with nursing and triage notes Were old charts reviewed (outside hosp., previous admission, EMS record, old EKG, old radiological studies, urgent care reports/EKG's, fpc records)? Report findings @ -I reviewed old CT scans and MRIs from the patient's prior admission Differential Diagnosis? @ -Differential CVA Ischemic stroke, hemorrhagic stroke, brain tumor, atypical migraine, Wernicke's encephalopathy, seizure, multiple sclerosis, meningitis, encephalitis, hypoglycemia, Guillain-Parikh, electrolytes disturbance, myasthenia gravis.... This is not meant to be an all-inclusive list EKG interpreted by me (3pts min.). @ -As above X-rays interpreted by me (1pt min.). @ -None done CT interpreted by me (1pt min.). @ -CT scan of the brain shows no acute abnormality U/S interpreted by me (1pt. min.). @ -None done What testing was considered but not performed or refused? (CT, X-rays, U/S, labs)? Why? @ -None What meds were considered but not given or refused? Why? @ -None Did you discuss the management of the patient with other professionals (professionals i.e. , PA, BAKERY WORKER, lab, RT, psych nurse, oncology social worker, thermodynamics professor, teacher, international first officer, case management director)? Give summary @ -I spoke with Dr. Rosales he agreed to admit the patient I admitted the patient I wrote admitting orders Was smoking cessation discussed for >3mins.? @ -No Was critical care preformed (if so, how long)? @ -No Were there social determinants of health that impacted care today? How? (Homelessness, low income, unemployed, alcoholism, drug addiction, transportation, low edu. Level, literacy, decrease access to med. care, assisted, rehab)? @ -No Was there de-escalation of care discussed even if they declined (Discuss DNR or withdrawal of care, Hospice)? DNR status @ -No What co-morbidities impacted this encounter? (DM, HTN, Smoking, COPD, CAD, Cancer, CVA, ARF, Chemo, Hep., AIDS, mental health diagnosis, sleep apnea, m orbid obesity)? @ -None Was patient admitted / discharged? Hospital course, mention meds given and r oute, prescriptions, significant lab abnormalities, going to OR and other pertinent info. @ -Patient's CAT scan was normal. Patient had a headache so patient got some Ofirmev and was nauseated so he had some Zofran and it was also very anxious so he had some Ativan. I spoke with the neurointerventionist and he wanted the patient to be admitted to be evaluated and to be placed on Brilinta. Undiagnosed new problem with uncertain prognosis? @ -No Drug Therapy requiring intensive monitoring for toxicity (Heparin, Nitro, Insulin, Cardizem)? @ -No Were any procedures done? @ -No Diagnosis/symptom? @ -TIA Acute, or Chronic, or Acute on Chronic? @ -Acute Uncomplicated (without systemic symptoms) or Complicated (systemic symptoms)? @ -Comp Side effects of treatment? @ -No Exacerbation, Progression, or Severe Exacerbation? @ -No Poses a threat to life or bodily function? How? (Chest pain, [place], [place], pneumonia, PE, COPD, DKA, ARF, appy, cholecystitis, CVA, Diverticulitis, Homicidal, Suicidal, threat to staff... and all critical care pts) @ -Yes this can lead to a stroke and endorgan dysfunction - Lab Data Result diagrams: 07/09/24 19:36 07/09/24 19:36 Lab Results 07/09/24 07/09/24 07/09/24 Range/Units 19:36 19:36 19:36 WBC 12.0 H (3.8-10.6) k/uL RBC 5.54 (4.30-5.90) m/uL Hgb 16.9 (13.0-17.5) gm/dL Hct 52.6 (39.0-53.0) % MCV 94.8 (80.0-100.0) fL MCH 30.5 (25.0-35.0) pg MCHC 32.2 (31.0-37.0) g/dL RDW 13.3 (11.5-15.5) % Plt Count 226 (150-450) k/uL MPV 8.0 Neutrophils % 65 % Lymphocytes % 24 % Monocytes % 8 % Eosinophils % 1 % Basophils % 1 % Neutrophils # 7.7 (1.3-7.7) k/uL Lymphocytes # 2.8 (1.0-4.8) k/uL Monocytes # 0.9 (0-1.0) k/uL Eosinophils # 0.2 (0-0.7) k/uL Basophils # 0.1 (0-0.2) k/uL PT 12.3 (10.0-12.5) sec INR 1.1 (<1.2) APTT 25.2 (22.0-30.0) sec Sodium 135 L (137-145) mmol/L Potassium 4.6 (3.5-5.1) mmol/L Chloride 101 (98-107) mmol/L Carbon Dioxide 26 (22-30) mmol/L Anion Gap 8 mmol/L BUN 23 H (9-20) mg/dL Creatinine 1.04 (0.66-1.25) mg/dL Est GFR (CKD-EPI)AfAm 78 (>60 ml/min/1.73 sqM) Est GFR (CKD-EPI)NonAf 68 (>60 ml/min/1.73 sqM) Glucose 186 H (74-99) mg/dL POC Glucose (mg/dL) (70-110) mg/dL POC Glu Irrigation Service Technician ID Calcium 9.1 (8.4-10.2) mg/dL Total Bilirubin 1.0 (0.2-1.3) mg/dL AST 27 (17-59) U/L ALT 23 (4-49) U/L Alkaline Phosphatase 134 H (38-126) U/L Creatine Kinase 133 (55-170) U/L Troponin I (0.000-0.034) ng/mL Total Protein 7.9 (6.3-8.2) g/dL Albumin 4.3 (3.5-5.0) g/dL 07/09/24 07/09/24 Range/Units 19:36 19:38 WBC (3.8-10.6) k/uL RBC (4.30-5.90) m/uL Hgb (13.0-17.5) gm/dL Hct (39.0-53.0) % MCV (80.0-100.0) fL MCH (25.0-35.0) pg MCHC (31.0-37.0) g/dL RDW (11.5-15.5) % Plt Count (150-450) k/uL MPV Neutrophils % % Lymphocytes % % Monocytes % % Eosinophils % % Basophils % % Neutrophils # (1.3-7.7) k/uL Lymphocytes # (1.0-4.8) k/uL Monocytes # (0-1.0) k/uL Eosinophils # (0-0.7) k/uL Basophils # (0-0.2) k/uL PT (10.0-12.5) sec INR (<1.2) APTT (22.0-30.0) sec Sodium (137-145) mmol/L Potassium (3.5-5.1) mmol/L Chloride (98-107) mmol/L Carbon Dioxide (22-30) mmol/L Anion Gap mmol/L BUN (9-20) mg/dL Creatinine (0.66-1.25) mg/dL Est GFR (CKD-EPI)AfAm (>60 ml/min/1.73 sqM) Est GFR (CKD-EPI)NonAf (>60 ml/min/1.73 sqM) Glucose (74-99) mg/dL POC Glucose (mg/dL) 175 H (70-110) mg/dL POC Glu Irrigation Service Technician ID Martin Bill Calcium (8.4-10.2) mg/dL Total Bilirubin (0.2-1.3) mg/dL AST (17-59) U/L ALT (4-49) U/L Alkaline Phosphatase (38-126) U/L Creatine Kinase (55-170) U/L Troponin I <0.012 (0.000-0.034) ng/mL Total Protein (6.3-8.2) g/dL Albumin (3.5-5.0) g/dL Disposition Clinical Impression: TIA (transient ischemic attack) Disposition: ADMITTED IP TO THIS HOSP Referrals: Jeyson Grissom MD [Primary Care Provider] - 1-2 days Time of Disposition: 20:50
[2024-07-09 20:05] LABS: Basophils # (A) 0.1 k/uL (0-0.2); Basophils % (A) 1 %; Eosinophils # (A) 0.2 k/uL (0-0.7); Eosinophils % (A) 1 %; HCT 52.6 % (39.0-53.0); HGB 16.9 gm/dL (13.0-17.5); Lymphocytes # (A) 2.8 k/uL (1.0-4.8); Lymphocytes % (A) 24 %; MCH 30.5 pg (25.0-35.0); MCHC 32.2 g/dL (31.0-37.0); MCV 94.8 fL (80.0-100.0); Monocytes # (A) 0.9 k/uL (0-1.0); Monocytes % (A) 8 %; Neutrophils # (A) 7.7 k/uL (1.3-7.7); Neutrophils % (A) 65 %; Platelet Count 226 k/uL (150-450); RBC 5.54 m/uL (4.30-5.90); RDW 13.3 % (11.5-15.5)
--- NOTE | 2024-07-09 20:08 | CT ---
EXAMINATION TYPE: CT brain wo con DATE OF EXAM: 07/09/2024 8:00 PM COMPARISON: Multiple prior CT head studies, most recently dated 07/05/2024. CLINICAL INDICATION: Male, 78 years old with history of Neuro deficit, acute, stroke suspected, cva, recent cva TECHNIQUE: Brain: Axial CT images of the brain were obtained with coronal and sagittal reformats created and rev iewed. Contrast used: None. Oral contrast used: None. CT DLP: 1092.1 mGycm, Automated exposure control for dose reduction was used. FINDINGS: Brain: No acute intracranial hemorrhage, midline shift or significant mass effect. No sizable extracting flu id collection. Ventricles and sulci mildly prominent compatible with generalized cerebral volume loss . Patchy periventricular and subcortical white matter hypoattenuation likely reflecting chronic micro vascular ischemic disease. Basal cisterns are patent. Paranasal sinuses and mastoid air cells appear patent. No depressed evidence of fracture or large scalp hematoma. Previous bilateral cataract lens e xtraction noted. IMPRESSION: No acute intracranial abnormality identified. [facility], , 07/09/2024 8:06 PM
[2024-07-09 20:19] LABS: INR 1.1 (<1.2); Partial Thromboplastin Time 25.2 sec (22.0-30.0); Prothrombin Time 12.3 sec (10.0-12.5)
[2024-07-09 20:31] LABS: ALT 23 U/L (4-49); AST 27 U/L (17-59); African American GFR (CKD) 78 (>60 ml/min/1.73 sqM); Albumin 4.3 g/dL (3.5-5.0); Alkaline Phosphatase 134 U/L (38-126); Anion Gap 8 mmol/L; Blood Urea Nitrogen 23 mg/dL (9-20); Calcium 9.1 mg/dL (8.4-10.2); Carbon Dioxide 26 mmol/L (22-30); Chloride 101 mmol/L (98-107); Creatine Kinase 133 U/L (55-170); Glucose 186 mg/dL (74-99); Non-African American GFR(CKD) 68 (>60 ml/min/1.73 sqM); Potassium 4.6 mmol/L (3.5-5.1); Sodium 135 mmol/L (137-145); Total Protein 7.9 g/dL (6.3-8.2)
[2024-07-09] MEDS: ONDANSETRON 4 MG/2 ML VIAL IVP STA (20:46)
[2024-07-09] MEDS: LORazepam 2 MG/ML INJ IV STA (20:47)
[2024-07-09] MEDS: ACETAMINOPHEN IV (For NPO) 1,000 MG in EMPTY BAG 1 BAG IVPB STA (20:49)
[2024-07-09] MEDS: SODIUM CHLORIDE 0.9% 500 ML 500 ML IV ONE (20:52)
[2024-07-09] MEDS ORDERED: DEXTROSE 50% SYRINGE 50 ML IVP PRN ×2 (20:54)
[2024-07-09] MEDS: TICAGRELOR 90 MG TAB PO STA (21:09)
[2024-07-09] MEDS: ASPIRIN 325 MG TAB PO STA (21:09)
[2024-07-09] MEDS: HYDROmorphone 0.5 MG/0.5 ML SYRINGE IM STA (21:37)
[2024-07-09 21:44] LABS: Glucose,Whole Blood 191 mg/dL (70-110)
[2024-07-09] MEDS: INSULIN ASPART (NovoLOG) 100 UNIT/ML VIAL SQ SCH (21:47)
[2024-07-09] MEDS: HYDROmorphone 0.5 MG/0.5 ML SYRINGE IVP STA (21:48)
[2024-07-10] MEDS: HYDROcodone/APAP 5-325MG 1 EACH TAB PO PRN (04:03)
[2024-07-10 07:57] LABS: Glucose,Whole Blood 150 mg/dL (70-110)
[2024-07-10] MEDS ORDERED: NITROGLYCERIN SL TABS 0.4 MG TAB SUBLINGUAL PRN (09:36)
--- NOTE | 2024-07-10 09:44 | P.HPIM ---
History of Present Illness Pleasant male came in with complaints of slurred speech and left hand numbness. Patient was recently hospitalized for the same symptoms underwent extensive workup during that hospitalization and at that time carotid Doppler was done w hich showed stenosis of 50 to 69% on the left side and no occlusion on the right side. His symptoms completely resolved at this time because of his recurrent symptoms vascular surgery evaluated the patient neurology evaluate the patient and patient will undergo carotid endarterectomy. Patient was also having headache which is resolved at this time CT of the head did not show any acute changes. Patient does have history of atrial fibrillation on anticoagulation with Eliquis which is being held now for carotid endarterectomy patient is also on antiplatelet therapy. - REVIEW OF SYSTEMS: All other systems are negative except those mentioned in the HPI PHYSICAL EXAMINATION: GENERAL: The patient is alert and oriented x3, not in any acute distress. Well developed, well nourished. HEENT: Pupils are round and equally reacting to light. EOMI. No scleral icterus. No conjunctival pallor. Normocephalic, atraumatic. No pharyngeal erythema. No thyromegaly. CARDIOVASCULAR: S1 and S2 present. No murmurs, rubs, or gallops. PULMONARY: Chest is clear to auscultation, no wheezing or crackles. ABDOMEN: Soft, nontender, nondistended, normoactive bowel sounds. No palpable organomegaly. MUSCULOSKELETAL: No joint swelling or deformity. EXTREMITIES: No cyanosis, clubbing, or pedal edema. NEUROLOGICAL: Gross neurological examination did not reveal any focal deficits. SKIN: No rashes. Assessment and plan TIA: Patient has recurrent TIAs patient will undergo carotid endarterectomy patient received Brilinta here we will hold off on Eliquis and Plavix temporarily for catheter due to endarterectomy. -Coronary artery disease history of CABG in the past -Type 2 diabetes mellitus: As patient will be n.p.o. tonight we will cut down the dose of long-acting insulin from 30 minutes to 20 units and he can continue his Premeal insulin as he only gets his insulin when he eats. Continue with sliding scale insulin -Hypothyroidism -Hyperlipidemia -Hypertension -Gastroesophageal reflux disease DVT prophylaxis: Patient will be started on Eliquis after carotid endarterectomy. Early ambulation Past Medical History Past Medical History: Coronary Artery Disease (CAD), Diabetes Mellitus, GERD/Reflux, Hearing Disorder / Deafness, Hyperlipidemia, Hypertension, Thyroid Disorder Additional Past Medical History / Comment(s): arthritis, recent SOB and dizziness. History of Any Multi-Drug Resistant Organisms: None Reported Past Surgical History: Appendectomy, Coronary Bypass/CABG, Heart Catheterization With Stent Additional Past Surgical History / Comment(s): 3 stents, CABG 1999, "tendon cut in right root" Past Anesthesia/Blood Transfusion Reactions: No Reported Reaction Date of Last Stent Placement:: 05/21/2009 Past Psychological History: No Psychological Hx Reported Smoking Status: Former smoker Past Alcohol Use History: None Reported Past Drug Use History: None Reported - Past Family History Mother Family Medical History: No Reported History Medications and Allergies Home Medications Medication Instructions Recorded Confirmed Type Atorvastatin [Lipitor] 40 mg PO HS 11/13/15 07/10/24 History Levothyroxine Sodium [Synthroid] 200 mcg PO MOTUWETHFRSA 11/13/15 07/10/24 History Metoprolol Tartrate [Lopressor] 50 mg PO BID 11/13/15 07/10/24 History Propafenone HCl [Rythmol] 150 mg PO Q8H 11/13/15 07/10/24 History Omeprazole 20 mg PO DAILY 11/10/17 07/10/24 History Apixaban [Eliquis] 5 mg PO BID 10/28/22 07/10/24 History Furosemide [Lasix] 20 mg PO DAILY PRN 10/28/22 07/10/24 History glipiZIDE/METFORMIN HCL 0.5 tab PO BID-W/MEALS 10/28/22 07/10/24 History [glipiZIDE/METFORMIN HCL 5-500 mg] Cetirizine HCl [Zyrtec] 10 mg PO DAILY 07/05/24 07/10/24 History Insulin Glargine,Hum.rec.anlog 35 unit SQ HS 07/05/24 07/10/24 History [Basaglar Kwikpen U-100] Insulin Lispro [humaLOG Kwikpen] 20 unit SQ AC-TID 07/05/24 07/10/24 History Levothyroxine Sodium [Synthroid] 300 mcg PO GONZALEZ 07/05/24 07/10/24 History Nitroglycerin Sl Tabs [Nitrostat] 0.4 mg SUBLINGUAL Q5M PRN 07/05/24 07/10/24 History Valsartan/Hydrochlorothiazide 1 tab PO DAILY 07/05/24 07/10/24 History [Valsartan-Hctz 160-12.5 mg Tab] allopurinoL [Zyloprim] 100 mg PO DAILY 07/05/24 07/10/24 History oxyBUTYnin chloride [oxyBUTYnin 5 mg PO DAILY 07/05/24 07/10/24 History chloride ER] Clopidogrel [Plavix] 75 mg PO DAILY #30 tab 07/07/24 07/10/24 Rx Allergies Allergy/AdvReac Type Severity Reaction Status Date / Time No Known Allergies Allergy Verified 07/10/24 09:26 Physical Exam Vitals: Vital Signs Temp Pulse Pulse Resp BP BP Pulse Ox 07/10/24 08:14 97.4 F L 81 16 145/97 98 07/10/24 06:00 75 17 109/62 07/10/24 02:00 69 18 161/97 97 07/09/24 21:00 72 18 156/76 98 07/09/24 20:45 71 18 134/78 97 07/09/24 20:30 72 18 172/86 98 07/09/24 20:15 76 18 149/87 97 07/09/24 20:00 79 18 168/88 98 07/09/24 19:16 98.7 F 73 18 164/117 98 Intake and Output 07/09/24 07/10/24 07/10/24 22:59 06:59 14:59 Other: Weight 104.326 kg Results CBC & Chem 7: 07/09/24 19:36 07/09/24 19:36 Labs: Abnormal Lab Results - Last 24 Hours (Table) 07/09/24 07/09/24 07/09/24 Range/Units 19:36 19:36 19:38 WBC 12.0 H (3.8-10.6) k/uL Sodium 135 L (137-145) mmol/L BUN 23 H (9-20) mg/dL Glucose 186 H (74-99) mg/dL POC Glucose (mg/dL) 175 H (70-110) mg/dL Alkaline Phosphatase 134 H (38-126) U/L 07/09/24 07/10/24 Range/Units 21:42 07:55 WBC (3.8-10.6) k/uL Sodium (137-145) mmol/L BUN (9-20) mg/dL Glucose (74-99) mg/dL POC Glucose (mg/dL) 191 H 150 H (70-110) mg/dL Alkaline Phosphatase (38-126) U/L
[2024-07-10 10:01] LABS: Chol/HDL Ratio 3.02 Ratio; LDL Cholesterol,Calculated 55.7 mg/dL (0.0-131.0)
[2024-07-10] MEDS: PROPAFENONE 150 MG TAB PO SCH (10:21)
[2024-07-10] MEDS: ASPIRIN 325 MG TAB PO SCH (10:21)
[2024-07-10] MEDS: LEVOTHYROXINE 100 MCG TAB PO SCH (10:21)
[2024-07-10] MEDS: TICAGRELOR 90 MG TAB PO SCH (10:21)
[2024-07-10] MEDS: PANTOPRAZOLE 40 MG TABLET PO SCH (10:22)
--- NOTE | 2024-07-10 11:19 | P.CNNES ---
History of Present Illness Consult date: 07/10/24 Reason for Consult: TIA History of Present Illness: The patient is an 78-year-old male who was seen in neurologic consultation on July 10, 2024, in collaboration with Linda Tenorio, via teleneurology. The patient was recently admitted to the hospital for the same symptoms. He presents on this occasion with reports of left facial and hand numbness as well as difficulty with speech. He says his speech was very slurred. He reports th at his symptoms lasted for a few hours. He also reports having a severe headache with these symptoms. Patient denies changes in vision. There is no loss of vision no weakness no facial droop. The patient reports that his symptoms were sudden in onset and resolved suddenly. Patient was recently admitted to the hospital for similar symptoms. He underwent an extensive workup including CT scan of the brain, CT angiogram, 2D echocardiogram and laboratory evaluation. CT angiogram revealed moderate stenosis of the left internal carotid artery. After his workup, patient was discharged home to follow-up with vascular surgery. Past Medical History Past Medical History: Coronary Artery Disease (CAD), Diabetes Mellitus, GERD/Reflux, Hearing Disorder / Deafness, Hyperlipidemia, Hypertension, Thyroid Disorder Additional Past Medical History / Comment(s): arthritis, recent SOB and dizziness. History of Any Multi-Drug Resistant Organisms: None Reported Past Surgical History: Appendectomy, Coronary Bypass/CABG, Heart Catheterization With Stent Additional Past Surgical History / Comment(s): 3 stents, CABG 1999, "tendon cut in right root" Past Anesthesia/Blood Transfusion Reactions: No Reported Reaction Date of Last Stent Placement:: 05/21/2009 Past Psychological History: No Psychological Hx Reported Smoking Status: Former smoker Past Alcohol Use History: None Reported Past Drug Use History: None Reported - Past Family History Mother Family Medical History: No Reported History Medications and Allergies Home Medications Medication Instructions Recorded Confirmed Type Atorvastatin [Lipitor] 40 mg PO HS 11/13/15 07/10/24 History Levothyroxine Sodium [Synthroid] 200 mcg PO MOTUWETHFRSA 11/13/15 07/10/24 History Metoprolol Tartrate [Lopressor] 50 mg PO BID 11/13/15 07/10/24 History Propafenone HCl [Rythmol] 150 mg PO Q8H 11/13/15 07/10/24 History Omeprazole 20 mg PO DAILY 11/10/17 07/10/24 History Apixaban [Eliquis] 5 mg PO BID 10/28/22 07/10/24 History Furosemide [Lasix] 20 mg PO DAILY PRN 10/28/22 07/10/24 History glipiZIDE/METFORMIN HCL 0.5 tab PO BID-W/MEALS 10/28/22 07/10/24 History [glipiZIDE/METFORMIN HCL 5-500 mg] Cetirizine HCl [Zyrtec] 10 mg PO DAILY 07/05/24 07/10/24 History Insulin Glargine,Hum.rec.anlog 35 unit SQ HS 07/05/24 07/10/24 History [Basaglar Kwikpen U-100] Insulin Lispro [humaLOG Kwikpen] 20 unit SQ AC-TID 07/05/24 07/10/24 History Levothyroxine Sodium [Synthroid] 300 mcg PO GONZALEZ 07/05/24 07/10/24 History Nitroglycerin Sl Tabs [Nitrostat] 0.4 mg SUBLINGUAL Q5M PRN 07/05/24 07/10/24 History Valsartan/Hydrochlorothiazide 1 tab PO DAILY 07/05/24 07/10/24 History [Valsartan-Hctz 160-12.5 mg Tab] allopurinoL [Zyloprim] 100 mg PO DAILY 07/05/24 07/10/24 History oxyBUTYnin chloride [oxyBUTYnin 5 mg PO DAILY 07/05/24 07/10/24 History chloride ER] Clopidogrel [Plavix] 75 mg PO DAILY #30 tab 07/07/24 07/10/24 Rx Allergies Allergy/AdvReac Type Severity Reaction Status Date / Time No Known Allergies Allergy Verified 07/10/24 09:26 Physical Examination - Vital Signs Vital Signs: Vital Signs Temp Pulse Pulse Resp BP BP Pulse Ox 07/10/24 08:14 97.4 F L 81 16 145/97 98 07/10/24 06:00 75 17 109/62 07/10/24 02:00 69 18 161/97 97 07/09/24 21:00 72 18 156/76 98 07/09/24 20:45 71 18 134/78 97 07/09/24 20:30 72 18 172/86 98 07/09/24 20:15 76 18 149/87 97 07/09/24 20:00 79 18 168/88 98 07/09/24 19:16 98.7 F 73 18 164/117 98 Intake and Output 07/09/24 07/10/24 07/10/24 22:59 06:59 14:59 Other: Weight 104.326 kg General: The patient is well-nourished well-developed in no acute distress. HEENT: Head is atraumatic, normocephalic. Fundus not visualized. There is no scleral icterus. Mucous membranes are moist Neck: Supple without carotid bruits Heart: Regular rate and rhythm without murmur Lungs: Essentially clear to auscultation Extremities: Without edema Neurological examination Mental status: Patient is awake, alert and oriented x 3. His speech is clear. There is no dysarthria or aphasia. Cranial nerves: Pupils are equal at 3 mm and reactive. Visual arias are full to confrontation. Extraocular movements are intact. There is no nystagmus. Facial sensation is intact. There is no facial asymmetry. Hearing is grossly intact. Uvula and palate are midline. Shoulder shrug is symmetric. Tongue protrudes midline. Motor: Strength is 5/5 throughout. Sensation: Intact to light touch throughout. There is no extinction with double simultaneous stimulation. Deep tendon reflexes: 2+/4+ throughout. Coordination: [id number], rapid alternating movements and emda-os-anmp testing are intact. Gait: Not assessed Results - Laboratory Findings CBC and BMP: 07/09/24 19:36 07/09/24 19:36 Abnormal Lab Findings: Abnormal Labs 07/09/24 07/09/24 07/09/24 19:36 19:36 19:38 WBC 12.0 H Sodium 135 L BUN 23 H Glucose 186 H POC Glucose (mg/dL) 175 H Alkaline Phosphatase 134 H 07/09/24 07/10/24 21:42 07:55 WBC Sodium BUN Glucose POC Glucose (mg/dL) 191 H 150 H Alkaline Phosphatase Assessment and Plan Assessment: 1. Transient ischemic attack involving left face, and and speech. The symptoms are consistent with right middle cerebral artery territory 2. 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 History of coronary artery disease 4. Hypertension 5. Hyperlipidemia 6. Diabetes mellitus 7. Chronic atrial fibrillation Plan: 1. Vascular surgery consultation for left ICA stenosis 2. Continue Eliquis and Plavix 3. Continue high intensity statin 4. Stroke workup has already been completed, therefore no stroke workup is needed on this admission Thank you for allowing us to participate in the care of this patient Dr. Wray will assume neurologic coverage of this patient as of July 11, 2024 Time with Patient: Greater than 30 (60 minutes were spent caring for this patient today including, obtaining history, examining the patient, reviewing yovani ging, chart documentation, labs and creating this note)
[2024-07-10 11:51] LABS: Glucose,Whole Blood 211 mg/dL (70-110)
[2024-07-10] MEDS: INSULIN ASPART (NovoLOG) 100 UNIT/ML VIAL SQ SCH (11:55)
[2024-07-10 17:28] LABS: Glucose,Whole Blood 199 mg/dL (70-110)
[2024-07-10] MEDS: METOPROLOL TARTRATE 50 MG TAB PO SCH (20:18)
[2024-07-10] MEDS: ATORVASTATIN 40 MG TAB PO SCH (20:18)
[2024-07-10] MEDS: INSULIN DETEMIR (LEVEMIR) 100 UNIT/ML SYR SQ SCH (20:18)
[2024-07-11] MEDS: LEVOTHYROXINE 100 MCG TAB PO SCH (06:11)
[2024-07-11 08:07] LABS: Glucose,Whole Blood 161 mg/dL (70-110)
--- NOTE | 2024-07-11 08:15 | P.PN ---
Subjective Progress Note Date: 07/11/24 Principal diagnosis: Overall ischemic attack with history of atrial fibrillation as well as moderate carotid stenosis on the left side. Mr. Jeyson Barclay is an 78-year-old male with history of coronary artery disease, diabetes, gastroesophageal reflux, decreased hearing, hyperlipidemia, hypertension, thyroid problems, arthritis, shortness of breath as well as dizziness and history of atrial fibrillation for which she takes Eliquis with's at home. He was seen and admitted to [facility] on July 09 with complaints of left hand as well as face numbness and slurred speech which lasted a few hours. He had been seen previously for similar symptoms on July 05 and had a complete stroke workup including echocardiogram with ejection fraction of 55 to 60%, MRI of the brain which was normal save for some small vessel disease and a CT angiogram which revealed moderate left internal carotid artery stenosis of 50 to 69%. He was seen by vascular surgery during this admission and is planned for carotid artery endarterectomy on July 11. When seen this morning July 11, the patient reports no symptoms at this time. He is understanding if he is going for surgery and will need to be replaced on Eliquis following surgery. He is currently on aspirin 325 mg daily; however, medications have been discontinued at this time as he is n.p.o. pending surgery. His LDL is 55 and A1c is 7.4. On exam, the patient has no evidence of neurologic deficits at this time. Assessment: Mr. Bailey is an 78-year-old male with history of atrial fibrillation as well as left carotid stenosis of 50 to 69%. He has had some recurrent TIA type events and is currently admitted pending carotid arterectomy July 11. Plan: 1. The patient will proceed with his carotid endarterectomy today. 2. Following endarterectomy, the patient will likely be placed on aspirin for short period and then resumed on his Eliquis. This [facility]. 3. Neurology will continue to follow him and see him again tomorrow July 12. Objective - Vital Signs Vital signs: Vital Signs Temp 97.4 F L 07/11/24 00:28 Pulse 84 07/11/24 07:41 Resp 18 07/11/24 07:41 BP 144/92 07/11/24 07:41 Pulse Ox 96 07/11/24 07:41 FiO2 Intake & Output 07/10/24 07/11/24 07/11/24 18:59 06:59 18:59 Intake Total 750 Balance 750 Intake: Oral 750 Other: # Voids 3 # Bowel Movements 0 - Labs CBC & Chem 7: 07/09/24 19:36 07/09/24 19:36 Labs: Abnormal Lab Results - Last 24 Hours (Table) 07/10/24 07/10/24 07/10/24 Range/Units 06:09 06:09 11:41 POC Glucose (mg/dL) 211 H (70-110) mg/dL Hemoglobin A1c 7.4 H (<=6.0) % HDL Cholesterol 38.70 L (40.00-60.00) mg/dL 07/10/24 07/11/24 Range/Units 17:21 08:05 POC Glucose (mg/dL) 199 H 161 H (70-110) mg/dL Hemoglobin A1c (<=6.0) % HDL Cholesterol (40.00-60.00) mg/dL
[2024-07-11] MEDS: allopurinoL 100 MG TAB PO SCH (08:23)
[2024-07-11] MEDS: LOSARTAN 25 MG TAB PO SCH (08:23)
[2024-07-11] MEDS: OXYBUTYNIN XL 5 MG TAB.ER.24 PO SCH (08:24)
[2024-07-11] MEDS ORDERED: APIXABAN 5 MG TAB PO SCH (09:30)
[2024-07-11] MEDS: APIXABAN 2.5 MG TABLET PO SCH (09:50)
--- NOTE | 2024-07-11 10:23 | P.CRDCN ---
History of Present Illness Consult date: 07/11/24 Reason for Consult (text): Cardiac clearance for TCAR History of present illness: This is an 86-year-old male patient of Dr. Zarate with past medical history of CAD with prior stenting of the RCA and MONTGOMERY to LAD, known intermediate disease invol ving the diagonal branch, hypertension, dyslipidemia, valvular heart disease, with aortic stenosis and mitral regurgitation, paroxysmal atrial fibrillation, overweight. We have been asked to evaluate patient for cardiac clearance for TCAR. Patient and give history that he had an episode where his fingers on his left hand went numb along with the left side of his face including part of his mouth and difficulty with speech. The first episode happened last week and he was diagnosed with TIA. At that time patient had a CTA of the neck which revealed moderate left ICA stenosis. Patient was seen by vascular surgery with plan for follow-up in the office and schedule TCAR as an outpatient. Now patient returns to the hospital with similar symptoms that lasted about 1 hour and resolved on their own. Patient also complains of feeling dyspnea on exertion and concerned about his valve. Patient denies chest pain. He denies any other neurological symptoms. Telemetry is atrial fibrillation with controlled rate. Patient states that he has been taking his anticoagulation. Blood pressure 144/92, heart rate 84, pulse ox 96% on room air. Note that the ER physician placed patient on Brilinta versus Plavix which we will plan to continue. Patient is seen today in the emergency center waiting for a bed on the cardiac stepdown unit. -EKG: Atrial fibrillation with rate control -CT of the brain revealed no acute intracranial abnormality. -Laboratory studies: WBC 12, hemoglobin 16.9. Sodium 135, potassium 4.6, BUN 23 creatinine 1.04. Troponin negative x 1. Triglycerides 113, cholesterol 117, LDL 55, HDL 38.7. -Home cardiac medications: Eliquis 5 mg twice daily, atorvastatin 40 mg at bedtime, Plavix 75 mg daily, Lasix 20 mg daily as needed, Lopressor 50 mg twice daily, Nitrostat as needed, Rythmol 150 mg every 8 hours, valsartan/hydrochlorothiazide 160-12.5 mg daily -Echocardiogram performed on 07/07/2024 revealed normal LV size and systolic function with moderate concentric LVH. Moderate aortic stenosis with calcification restriction of aortic valve leaflets. There is mild aortic insufficiency. Mild mitral and tricuspid regurgitation. No significant pulmonary hypertension. No pericardial effusion. -CTA of the head performed on 07/05/2024 revealed no significant stenosis. CTA of the neck revealed moderate left ICA stenosis with atherosclerosis. -Carotid ultrasound performed on 07/05 revealed no hemodynamically significant stenosis on the right and some degree of stenosis suggestive of the left due to elevated ratio possibly 50 to 69%. -Cardiac catheterization performed 10/29/2022 revealed occluded LAD, patent MONTGOMERY to LAD, intermediate disease involving the first diagonal, intermediate disease involving the OM1 of the left circumflex and severe disease involving the RCA. Patient subsequently underwent PCI of the RCA. -Cardiovascular surgery with MONTGOMERY to LAD in 1999 -Event monitor in 2019 revealed nonsustained V. tach in sinus rhythm. Review Of Systems: At the time of my exam: CONSTITUTIONAL: Denies fever or chills. HEENT: Denies blurred vision, vision changes, or eye pain. Denies hemoptysis CARDIOVASCULAR: Denies chest pain. Denies orthopnea. Denies PND. Denies palpitations RESPIRATORY: Denies shortness of breath. Reports dyspnea on exertion GASTROINTESTINAL: Denies abdominal pain. Denies nausea or vomiting. HEMATOLOGIC: Denies bleeding disorders. GENITOURINARY: Denies any blood in urine. SKIN: Denies puritis. Denies rash. Physical examination: Gen: This is an 78-year-old male in no acute distress VS: reviewed HEENT: Head is atraumatic, normocephalic. Pupils equal, round. Sclerae is anicteric. NECK: Supple. No JVD. LUNGS: Clear to auscultation. No wheezes or rhonchi. No intercostal retractions. HEART: Slightly irregular rate and rhythm. Systolic murmur at the right upper sternal border. ABDOMEN: Soft No tenderness. EXTREMITIES: No pedal edema. No calf tenderness. NEUROLOGICAL: Patient is awake, alert and oriented x3. Assessment: TIA TIA 07/05/2024 Moderate left ICA stenosis CAD with prior stenting of the RCA and history of MONTGOMERY to LAD Hypertension Dyslipidemia Valvular heart disease with moderate aortic stenosis, mild aortic insufficiency, mild mitral regurgitation and mild tricuspid regurgitation Paroxysmal atrial fibrillation and controlled rate Plan: Resume patient's home cardiac medications Continue with change to Brilinta from Plavix Dr. Zarate will review films from recent CTA done last week and give recommendations Further recommendations to follow based upon clinical course Thank you kindly for this consultation. Nurse practitioner note has been reviewed, I agree with documented findings and plan of care. Patient was seen and examined. Past Medical History Past Medical History: Coronary Artery Disease (CAD), Diabetes Mellitus, GERD/Reflux, Hearing Disorder / Deafness, Hyperlipidemia, Hypertension, Thyroid Disorder Additional Past Medical History / Comment(s): arthritis, recent SOB and dizziness. History of Any Multi-Drug Resistant Organisms: None Reported Past Surgical History: Appendectomy, Coronary Bypass/CABG, Heart Catheterization With Stent Additional Past Surgical History / Comment(s): 3 stents, CABG 1999, "tendon cut in right foot" Past Anesthesia/Blood Transfusion Reactions: No Reported Reaction Date of Last Stent Placement:: 05/21/2009 Past Psychological History: No Psychological Hx Reported Smoking Status: Former smoker Past Alcohol Use History: None Reported Additional Past Alcohol Use History / Comment(s): Quit smoking 30+ yrs ago, smoked since teen. Past Drug Use History: None Reported - Past Family History Mother Family Medical History: No Reported History Medications and Allergies Home Medications Medication Instructions Recorded Confirmed Type Atorvastatin [Lipitor] 40 mg PO HS 11/13/15 07/10/24 History Levothyroxine Sodium [Synthroid] 200 mcg PO MOTUWETHFRSA 11/13/15 07/10/24 History Metoprolol Tartrate [Lopressor] 50 mg PO BID 11/13/15 07/10/24 History Propafenone HCl [Rythmol] 150 mg PO Q8H 11/13/15 07/10/24 History Omeprazole 20 mg PO DAILY 11/10/17 07/10/24 History Apixaban [Eliquis] 5 mg PO BID 10/28/22 07/10/24 History Furosemide [Lasix] 20 mg PO DAILY PRN 10/28/22 07/10/24 History glipiZIDE/METFORMIN HCL 0.5 tab PO BID-W/MEALS 10/28/22 07/10/24 History [glipiZIDE/METFORMIN HCL 5-500 mg] Cetirizine HCl [Zyrtec] 10 mg PO DAILY 07/05/24 07/10/24 History Insulin Glargine,Hum.rec.anlog 35 unit SQ HS 07/05/24 07/10/24 History [Basaglar Kwikpen U-100] Insulin Lispro [humaLOG Kwikpen] 20 unit SQ AC-TID 07/05/24 07/10/24 History Levothyroxine Sodium [Synthroid] 300 mcg PO GONZALEZ 07/05/24 07/10/24 History Nitroglycerin Sl Tabs [Nitrostat] 0.4 mg SUBLINGUAL Q5M PRN 07/05/24 07/10/24 History Valsartan/Hydrochlorothiazide 1 tab PO DAILY 07/05/24 07/10/24 History [Valsartan-Hctz 160-12.5 mg Tab] allopurinoL [Zyloprim] 100 mg PO DAILY 07/05/24 07/10/24 History oxyBUTYnin chloride [oxyBUTYnin 5 mg PO DAILY 07/05/24 07/10/24 History chloride ER] Clopidogrel [Plavix] 75 mg PO DAILY #30 tab 07/07/24 07/10/24 Rx Allergies Allergy/AdvReac Type Severity Reaction Status Date / Time No Known Allergies Allergy Verified 07/10/24 09:26 Physical Exam Vitals: Vital Signs Temp Pulse Pulse Resp BP BP Pulse Ox 07/11/24 07:41 84 18 144/92 96 07/11/24 06:00 75 17 145/105 94 L 07/11/24 00:28 97.4 F L 61 17 150/95 07/10/24 19:39 80 17 139/97 07/10/24 16:55 98.6 F 89 16 128/76 97 07/10/24 15:46 78 16 138/78 07/10/24 12:45 97.6 F 75 16 128/78 98 Results 07/09/24 19:36 07/09/24 19:36 Lipids 07/10/24 Range/Units 06:09 Triglycerides 113.00 (0.00-149.00) mg/dL Cholesterol 117.00 (0.00-200.00) mg/dL HDL Cholesterol 38.70 L (40.00-60.00) mg/dL Cholesterol/HDL Ratio 3.02 Ratio Current Medications Generic Name Dose Route Start Last Admin Trade Name Freq PRN Reason Stop Dose Admin Hydrocodone Bitart/Acetaminophen 1 each 07/10/24 03:55 07/10/24 04:03 Hydrocodone/Apap 5-325mg 1 Each Tab PO 1 each Q6HR PRN Administration Pain Allopurinol 100 mg 07/11/24 09:00 12/16/24 08:23 Allopurinol 100 Mg Tab PO Not Given DAILY [facility] Aspirin 325 mg 07/10/24 09:00 07/11/24 08:23 Aspirin 325 Mg Tab PO Not Given DAILY [facility] Atorvastatin Calcium 40 mg 07/10/24 21:00 07/10/24 20:18 Atorvastatin 40 Mg Tab PO 40 mg HS BERTO Administration Dextrose/Water 25 ml 07/09/24 20:54 Dextrose 50% Syringe 50 Ml IVP PER PROTOCOL PRN Hypoglycemia Protocol Dextrose/Water 50 ml 07/09/24 20:54 Dextrose 50% Syringe 50 Ml IVP PER PROTOCOL PRN Hypoglycemia Protocol Insulin Aspart 0 unit 07/09/24 21:00 07/11/24 08:35 Insulin Aspart (Novolog) 100 Unit/Ml Vial SQ 2 unit ACHS BERTO Administration Protocol Insulin Aspart 20 unit 07/10/24 12:30 07/11/24 08:35 Insulin Aspart (Novolog) 100 Unit/Ml Vial SQ Not Given AC-TID BERTO Insulin Detemir 20 unit 07/10/24 21:00 07/10/24 20:18 Insulin Detemir (Levemir) 100 Unit/Ml Syr SQ 20 unit HS BERTO Administration Levothyroxine Sodium 200 mcg 07/11/24 06:30 07/11/24 06:11 Levothyroxine 100 Mcg Tab PO 200 mcg [id number] BERTO Administration Levothyroxine Sodium 300 mcg 07/10/24 10:00 07/10/24 10:21 Levothyroxine 100 Mcg Tab PO 300 mcg [id number] BERTO Administration Losartan Potassium 25 mg 07/11/24 09:00 07/11/24 08:23 Losartan 25 Mg Tab PO Not Given DAILY [facility] Metoprolol Tartrate 50 mg 07/10/24 21:00 07/11/24 08:23 Metoprolol Tartrate 50 Mg Tab PO Not Given BID [facility] Nitroglycerin 0.4 mg 07/10/24 09:36 Nitroglycerin Sl Tabs 0.4 Mg Tab SUBLINGUAL Q5M PRN Chest Pain Oxybutynin Chloride 5 mg 07/11/24 09:00 07/11/24 08:24 Oxybutynin Xl 5 Mg Tab.Er.24 PO Not Given DAILY [facility] Pantoprazole Sodium 40 mg 07/10/24 09:45 12/16/24 08:24 Pantoprazole 40 Mg Tablet PO Not Given DAILY [facility] Propafenone HCl 150 mg 07/10/24 10:00 07/11/24 08:22 Propafenone 150 Mg Tab PO Not Given Q8HR [facility] Ticagrelor 90 mg 07/10/24 09:00 07/11/24 08:24 Ticagrelor 90 Mg Tab PO Not Given BID [facility] 07/09/24 19:36 07/09/24 19:36
[2024-07-11] MEDS: hydroCHLOROthiazide 12.5 MG CAP PO SCH (11:08)
--- NOTE | 2024-07-11 12:00 | P.GSCN ---
History of Present Illness Consult date: 07/11/24 Reason for Consult: Carotid stenosis Requesting physician: Josafat Ashby History of present illness: This is a pleasant 78-year-old male with a recent hospitalization for TIA who was seen by vascular surgery and supposed to follow-up with Dr. Gabriel tomorrow in the office to discuss possible outpatient transcarotid artery revascularization. Apparently patient had same type of symptoms as he did with his last admission last week with left hand and facial numbness and tingling as well as slurred speech. He had a CTA and carotid duplex done as part of his evaluation last week. CTA showed a focal narrowing in the left carotid artery and the carotid duplex estimated of 50 to 69% stenosis based on ratios not velocities. He has a history of coronary artery disease with prior stenting of the RCA, valvular heart disease with moderate aortic stenosis, atrial fibrillation on Eliquis, TIA, hypertension and dyslipidemia. Patient was discharged from the hospital on Eliquis and Plavix 75 mg daily as well as at orvastatin 40 mg. He had a brain CT that shows no acute findings. He was seen by neurology and they changed his Plavix to Brilinta 90 mg twice daily. Patient also follows with Dr. Zarate from cardiology for coronary artery disease and had been following his carotids as well. During last hospitalization patient stated he wanted to follow-up with vascular surgery. Patient currently denies any foc al deficits. States his slurred speech and left facial numbness and left upper extremity numbness and tingling lasted about an hour. No return of symptoms since he has been here in the hospital. He denies any shortness of breath or chest pain. Review of Systems A 14 point review systems was completed all pertinent positives and negatives as stated in the HPI. Past Medical History Past Medical History: Coronary Artery Disease (CAD), Diabetes Mellitus, GERD/Reflux, Hearing Disorder / Deafness, Hyperlipidemia, Hypertension, Thyroid Disorder Additional Past Medical History / Comment(s): arthritis, recent SOB and dizziness. History of Any Multi-Drug Resistant Organisms: None Reported Past Surgical History: Appendectomy, Coronary Bypass/CABG, Heart Catheterization With Stent Additional Past Surgical History / Comment(s): 3 stents, CABG 1999, "tendon cut in right foot" Past Anesthesia/Blood Transfusion Reactions: No Reported Reaction Date of Last Stent Placement:: 05/21/2009 Past Psychological History: No Psychological Hx Reported Smoking Status: Former smoker Past Alcohol Use History: None Reported Additional Past Alcohol Use History / Comment(s): Quit smoking 30+ yrs ago, smoked since teen. Past Drug Use History: None Reported - Past Family History Mother Family Medical History: No Reported History Medications and Allergies Home Medications Medication Instructions Recorded Confirmed Type Atorvastatin [Lipitor] 40 mg PO HS 11/13/15 07/10/24 History Levothyroxine Sodium [Synthroid] 200 mcg PO MOTUWETHFRSA 11/13/15 07/10/24 Hi story Metoprolol Tartrate [Lopressor] 50 mg PO BID 11/13/15 07/10/24 History Propafenone HCl [Rythmol] 150 mg PO Q8H 11/13/15 07/10/24 History Omeprazole 20 mg PO DAILY 11/10/17 07/10/24 History Apixaban [Eliquis] 5 mg PO BID 10/28/22 07/10/24 History Furosemide [Lasix] 20 mg PO DAILY PRN 10/28/22 07/10/24 History glipiZIDE/METFORMIN HCL 0.5 tab PO BID-W/MEALS 10/28/22 07/10/24 History [glipiZIDE/METFORMIN HCL 5-500 mg] Cetirizine HCl [Zyrtec] 10 mg PO DAILY 07/05/24 07/10/24 History Insulin Glargine,Hum.rec.anlog 35 unit SQ HS 07/05/24 07/10/24 History [Basaglar Kwikpen U-100] Insulin Lispro [humaLOG Kwikpen] 20 unit SQ AC-TID 07/05/24 07/10/24 History Levothyroxine Sodium [Synthroid] 300 mcg PO GONZALEZ 07/05/24 07/10/24 History Nitroglycerin Sl Tabs [Nitrostat] 0.4 mg SUBLINGUAL Q5M PRN 07/05/24 07/10/24 History Valsartan/Hydrochlorothiazide 1 tab PO DAILY 07/05/24 07/10/24 History [Valsartan-Hctz 160-12.5 mg Tab] allopurinoL [Zyloprim] 100 mg PO DAILY 07/05/24 07/10/24 History oxyBUTYnin chloride [oxyBUTYnin 5 mg PO DAILY 07/05/24 07/10/24 History chloride ER] Clopidogrel [Plavix] 75 mg PO DAILY #30 tab 07/07/24 07/10/24 Rx Allergies Allergy/AdvReac Type Severity Reaction Status Date / Time No Known Allergies Allergy Verified 07/10/24 09:26 Surgical - Exam Vital Signs Temp Pulse Resp BP Pulse Ox 98.7 F 73 18 164/117 98 07/09/24 19:16 07/09/24 19:16 07/09/24 19:16 07/09/24 19:16 07/09/24 19:16 General appearance: The patient is alert, oriented, appears in no acute distress. HET: Head is normocephalic and atraumatic. Pupils are equal and reactive. Neck: Supple. Heart: Regular. Lungs: Equal expansion, normal respiratory effort. Abdomen: Soft, nontender, nondistended. Extremities: Normal skin color and turgor. Neurological: No focal deficits. Strength and sensation are grossly intact. Results - Labs 07/09/24 19:36 07/09/24 19:36 Abnormal Lab Results - Last 24 Hours (Table) 07/10/24 07/10/24 07/10/24 Range/Units 06:09 06:09 11:41 POC Glucose (mg/dL) 211 H (70-110) mg/dL Hemoglobin A1c 7.4 H (<=6.0) % HDL Cholesterol 38.70 L (40.00-60.00) mg/dL 07/10/24 07/11/24 Range/Units 17:21 08:05 POC Glucose (mg/dL) 199 H 161 H (70-110) mg/dL Hemoglobin A1c (<=6.0) % HDL Cholesterol (40.00-60.00) mg/dL Diabetes panel 07/10/24 07/10/24 Range/Units 06:09 06:09 Hemoglobin A1c 7.4 H (<=6.0) % Triglycerides 113.00 (0.00-149.00) mg/dL HDL Cholesterol 38.70 L (40.00-60.00) mg/dL - Imaging Comments: Brain CT reports no acute intracranial abnormality identified. Assessment and Plan Assessment: 1. Slurred speech, left facial numbness tingling, likely TIA 2. Recent TIA 07/05/2024 3. Left focal ICA stenosis 4. Coronary artery disease 5. Atrial fibrillation on Eliquis 6. Hypertension 7. Hyperlipidemia Plan: 1. Continue with Brilinta as ordered 2. Cardiology consulted. Dr. Gabriel spoke with Dr. Zarate regarding patient's case. Await further recommendations from cardiology. 3. Continue with recommendations from neurology 4. No surgical intervention is planned for today for carotid arteries. Further recommendations forthcoming based on clinical course. Thank you for this consultation, we will continue to follow. The impression and plan of care has been dictated as directed. I performed a history and examination of this patient, discussed the same with the dictator. I agree with the dictator's note ,documented as a scribe. Any additional findings or plans will be noted.
[2024-07-11 13:06] LABS: Glucose,Whole Blood 163 mg/dL (70-110)
[2024-07-11] MEDS: VALSARTAN 160 MG TAB PO SCH (13:14)
[2024-07-11 16:59] LABS: Glucose,Whole Blood 247 mg/dL (70-110)
[2024-07-11 20:53] LABS: Glucose,Whole Blood 186 mg/dL (70-110)
--- NOTE | 2024-07-11 22:29 | P.PN ---
Subjective Progress Note Date: 07/11/24 Pleasant male came in with complaints of slurred speech and left hand numbness. Patient was recently hospitalized for the same symptoms underwent extensive workup during that hospitalization and at that time carotid Doppler was done which showed stenosis of 50 to 69% on the left side and no occlusion on the right side. His symptoms completely resolved at this time because of his recurrent symptoms vascular surgery evaluated the patient neurology evaluate the patient and patient will undergo carotid endarterectomy. Patient was also having headache which is resolved at this time CT of the head did not show any acute changes. Patient does have history of atrial fibrillation on anticoagulation with Eliquis which is being held now for carotid endarterectomy patient is also on antiplatelet therapy. - 07/11/2024 Patient is evaluated today in the ER pending a bed on the medical floor. His slurred speech abnormalities as well as the numbness in the left hand have resolved at this time. Patient is undergoing a stroke workup. Patient is noted to have 50 to 69% stenosis of the left carotids. He was supposed to follow-up with Dr. Gabriel in the office tomorrow for further recommendations and per the patient was post be scheduled for a carotid endarterectomy. Vascular no plans for surgical intervention at this time. Cardiology did evaluate the patient and are considering this patient for carotid intervention this hospitalization. He has been resumed on his home dose of Eliquis at this time as there is no plans for any intervention today. Review of Systems Constitutional: Denied any fatigue denied any fever. Cardio vascular: denied any chest pain, palpitations Gastrointestinal: denied any nausea, vomiting, diarrhea Pulmonary: Denied any shortness of breath cough Neurologic denied any new focal deficits All inpatient medications were reviewed and appropriate changes in these medications as dictated in the interval history and assessment and plan. PHYSICAL EXAMINATION: GENERAL: The patient is alert and oriented x3, not in any acute distress. Well developed, well nourished. HEENT: Pupils are round and equally reacting to light. EOMI. No scleral icterus. No conjunctival pallor. Normocephalic, atraumatic. No pharyngeal erythema. No thyromegaly. CARDIOVASCULAR: S1 and S2 present. No murmurs, rubs, or gallops. PULMONARY: Chest is clear to auscultation, no wheezing or crackles. ABDOMEN: Soft, nontender, nondistended, normoactive bowel sounds. No palpable organomegaly. MUSCULOSKELETAL: No joint swelling or deformity. EXTREMITIES: No cyanosis, clubbing, or pedal edema. NEUROLOGICAL: Gross neurological examination did not reveal any focal deficits. SKIN: No rashes. Assessment and plan TIA: Patient has recurrent TIAs vascular and cardiology following with no plans for intervention for the carotid stenosis by vascular this hospitalization. Further recommendations from cardiology currently pending. Neurology following. Patient has been resumed on Eliquis and Brilinta -Coronary artery disease history of CABG in the past -Type 2 diabetes mellitus: Continue Accu-Cheks and sliding scale insulin patient is on 20 units subcu 3 times a day with meals as well as 20 units of Levemir at at bedtime. -Hypothyroidism -Hyperlipidemia -Hypertension -Gastroesophageal reflux disease DVT prophylaxis: Eliquis The impression and plan of care has been dictated by Jazzy Ramos, Nurse Practitioner as directed. Dr. Florentino MD I have performed a history and physical examination and medical decision making of this patient, discussed the same with the dictator, and agree with the dictators assessment and plan as written, documented as a scribe. Based on total visit time, I have performed more than 50% of this visit. Objective - Vital Signs Vital signs: Vital Signs Temp 97.5 F L 07/11/24 21:46 Pulse 91 07/11/24 21:46 Resp 17 07/11/24 21:46 BP 148/91 07/11/24 21:46 Pulse Ox 96 07/11/24 21:46 FiO2 Intake & Output 07/11/24 07/11/24 07/12/24 06:59 18:59 06:59 Intake Total 480 Balance 480 Weight 104.326 kg Intake: Oral 480 Other: Voiding Method Toilet # Voids 1 - Labs CBC & Chem 7: 07/09/24 19:36 07/09/24 19:36 Labs: Abnormal Lab Results - Last 24 Hours (Table) 07/11/24 07/11/24 07/11/24 Range/Units 08:05 13:03 16:58 POC Glucose (mg/dL) 161 H 163 H 247 H (70-110) mg/dL 07/11/24 Range/Units 20:52 POC Glucose (mg/dL) 186 H (70-110) mg/dL Assessment and Plan Time with Patient: Less than 30
[2024-07-12 06:08] LABS: Glucose,Whole Blood 169 mg/dL (70-110)
[2024-07-12 09:08] VITALS: RESP 20
[2024-07-12 10:46] LABS: Glucose,Whole Blood 214 mg/dL (70-110)
--- NOTE | 2024-07-12 11:09 | P.PN ---
Subjective Progress Note Date: 07/12/24 Principal diagnosis: Carotid stenosis Patient is seen and examined today as a follow-up. His is at the bedside. Based stated that Dr. Zarate came in and saw them and discussed with them he still needed to evaluate the CTA head and neck and get back with the patient regarding plan of care. In the meantime patient remains without any focal deficits and no complaints of new focal deficits. He is on Brilinta 90 mg twice daily and Eliquis 2.5 mg twice daily. Objective - Vital Signs Vital signs: Vital Signs Temp 97.7 F 07/12/24 08:00 Pulse 90 07/12/24 08:00 Resp 20 07/12/24 08:00 BP 146/63 07/12/24 08:00 Pulse Ox 98 07/12/24 08:00 FiO2 Intake & Output 07/11/24 07/12/24 07/12/24 18:59 06:59 18:59 Intake Total 480 180 Balance 480 180 Weight 104.4 kg Intake: Oral 480 180 Other: Voiding Method Toilet # Voids 2 - Exam General appearance: The patient is alert, oriented, appears in no acute dis tress. HET: Head is normocephalic and atraumatic. Pupils are equal and reactive. Neck: Supple. Heart: Regular. Lungs: Equal expansion, normal respiratory effort. Abdomen: Soft, nontender, nondistended. Extremities: Normal skin color and turgor. Neurological: No focal deficits. Strength and sensation are grossly intact. - Labs CBC & Chem 7: 07/09/24 19:36 07/09/24 19:36 Labs: Abnormal Lab Results - Last 24 Hours (Table) 07/11/24 07/11/24 07/11/24 Range/Units 13:03 16:58 20:52 POC Glucose (mg/dL) 163 H 247 H 186 H (70-110) mg/dL 07/12/24 Range/Units 06:07 POC Glucose (mg/dL) 169 H (70-110) mg/dL Assessment and Plan Assessment: 1. Slurred speech, left facial numbness tingling, likely TIA 2. Recent TIA 07/05/2024 3. Left focal ICA stenosis 4. Coronary artery disease 5. Atrial fibrillation on Eliquis 6. Hypertension 7. Hyperlipidemia Plan: 1. Continue with Brilinta as ordered 2. Cardiology consulted, patient known to them. 3. Continue with recommendations from neurology 4. Cardiology on board, cardiology is clearing patient for discharge and patient would like to follow-up with Dr. Zarate 5. Patient is cleared for discharge from vascular surgery and can follow-up as needed. Thank you for this consultation, we will sign off at this time. The impression and plan of care has been dictated as directed. I performed a history and examination of this patient, discussed the same with the dictator. I agree with the dictator's note ,documented as a scribe. Any additional findings or plans will be noted.
--- NOTE | 2024-07-12 11:18 | P.PN ---
Subjective Progress Note Date: 07/12/24 Reason for Consult (text): Cardiac clearance for TCAR History of present illness: This is an 86-year-old male patient of Dr. Zarate with past medical history of CAD with prior stenting of the RCA and MONTGOMERY to LAD, known intermediate disease involving the diagonal branch, hypertension, dyslipidemia, valvular heart disease, with aortic stenosis and mitral regurgitation, paroxysmal atrial fibrillation, overweight. We have been asked to evaluate patient for cardiac clearance for TCAR. Patient and give history that he had an episode where his fingers on his left hand went numb along with the left side of his face including part of his mouth and difficulty with speech. The first episode happened last week and he was diagnosed with TIA. At that time patient had a CTA of the neck which revealed moderate left ICA stenosis. Patient was seen by vascular surgery with plan for follow-up in the office and schedule TCAR as an outpatient. Now patient returns to the hospital with similar symptoms that lasted about 1 hour and resolved on their own. Patient also complains of feeling dyspnea on exertion and concerned about his valve. Patient denies chest pain. He denies any other neurological symptoms. Telemetry is atrial fibrillation with controlled rate. Patient states that he has been taking his anticoagulation. Blood pressure 144/92, heart rate 84, pulse ox 96% on room air. Note that the ER physician placed patient on Brilinta versus Plavix which we will plan to continue. Patient is seen today in the emergency center waiting for a bed on the cardiac stepdown unit. -EKG: Atrial fibrillation with rate control -CT of the brain revealed no acute intracranial abnormality. -Laboratory studies: WBC 12, hemoglobin 16.9. Sodium 135, potassium 4.6, BUN 23 creatinine 1.04. Troponin negative x 1. Triglycerides 113, cholesterol 117, LDL 55, HDL 38.7. -Home cardiac medications: Eliquis 5 mg twice daily, atorvastatin 40 mg at bedtime, Plavix 75 mg daily, Lasix 20 mg daily as needed, Lopressor 50 mg twice daily, Nitrostat as needed, Rythmol 150 mg every 8 hours, valsartan/hydrochlorothiazide 160-12.5 mg daily -Echocardiogram performed on 07/07/2024 revealed normal LV size and systolic function with moderate concentric LVH. Moderate aortic stenosis with calcification restriction of aortic valve leaflets. There is mild aortic insufficiency. Mild mitral and tricuspid regurgitation. No significant pulmonary hypertension. No pericardial effusion. -CTA of the head performed on 07/05/2024 revealed no significant stenosis. CTA of the neck revealed moderate left ICA stenosis with atherosclerosis. -Carotid ultrasound performed on 07/05 revealed no hemodynamically significant stenosis on the right and some degree of stenosis suggestive of the left due to elevated ratio possibly 50 to 69%. -Cardiac catheterization performed 10/29/2022 revealed occluded LAD, patent MONTGOMERY to LAD, intermediate disease involving the first diagonal, intermediate disease involving the OM1 of the left circumflex and severe disease involving the RCA. Patient subsequently underwent PCI of the RCA. -Cardiovascular surgery with MONTGOMERY to LAD in 1999 -Event monitor in 2019 revealed nonsustained V. tach in sinus rhythm. 07/12/2024 Patient seen and examined on the cardiac stepdown unit. Patient has had no further TIA symptoms. He has been switched from Plavix to Brilinta. Dr. Zarate discussed with him and his that he will be reviewing the CTA films with radiology and then the options would be discussed regarding surgery versus stent versus no treatment and monitoring. Blood pressure 146/63, heart rate 90, pulse ox 98% on room air. Physical examination: Gen: This is an 78-year-old male in no acute distress VS: reviewed HEENT: Head is atraumatic, normocephalic. Pupils equal, round. Sclerae is anicteric. NECK: Supple. No JVD. LUNGS: Clear to auscultation. No wheezes or rhonchi. No intercostal retractions. HEART: Slightly irregular rate and rhythm. Systolic murmur at the right upper sternal border. ABDOMEN: Soft No tenderness. EXTREMITIES: No pedal edema. No calf tenderness. NEUROLOGICAL: Patient is awake, alert and oriented x3. Assessment: TIA 07/09/2024 TIA 07/05/2024 Moderate left ICA stenosis CAD with prior stenting of the RCA and history of MONTGOMERY to LAD Hypertension Dyslipidemia Valvular heart disease with moderate aortic stenosis, mild aortic insufficiency, mild mitral regurgitation and mild tricuspid regurgitation Paroxysmal atrial fibrillation and controlled rate Plan: Continue patient's home cardiac medications Continue Brilinta versus Plavix Dr. Zarate will review films from recent CTA done last week and give recommendations Further recommendations to follow based upon clinical course Nurse practitioner note has been reviewed, I agree with documented findings and plan of care. Patient was seen and examined. Objective - Vital Signs Vital signs: Vital Signs Temp 97.5 F L 07/11/24 21:46 Pulse 68 07/12/24 04:07 Resp 15 07/12/24 04:07 BP 123/88 07/12/24 04:07 Pulse Ox 98 07/12/24 04:07 FiO2 Intake & Output 07/11/24 07/12/24 07/12/24 18:59 06:59 18:59 Intake Total 480 180 Balance 480 180 Weight 104.4 kg Intake: Oral 480 180 Other: Voiding Method Toilet # Voids 2 - Labs CBC & Chem 7: 07/09/24 19:36 07/09/24 19:36 Labs: Abnormal Lab Results - Last 24 Hours (Table) 07/11/24 07/11/24 07/11/24 Range/Units 13:03 16:58 20:52 POC Glucose (mg/dL) 163 H 247 H 186 H (70-110) mg/dL 07/12/24 Range/Units 06:07 POC Glucose (mg/dL) 169 H (70-110) mg/dL
[2024-07-12 11:23] LABS: Glucose,Whole Blood 200 mg/dL (70-110)
[2024-07-12 11:58] VITALS: BP 111/70; PULSE 58; TEMP 97.5
--- NOTE | 2024-07-12 13:42 | P.PN ---
Subjective Progress Note Date: 07/12/24 Principal diagnosis: Transient ischemic attack with moderate left-sided carotid stenosis. Mr. Jeyson Barclay is an 78-year-old male with history of coronary artery disease, diabetes, gastroesophageal reflux, decreased hearing, hyperlipidemia, hypertension, thyroid problems, arthritis, shortness of breath as well as dizziness and history of atrial fibrillation for which she takes Eliquis with's at home. He was seen and admitted to [facility] on July 09 with c omplaints of left hand as well as face numbness and slurred speech which lasted a few hours. He had been seen previously for similar symptoms on July 05 and had a complete stroke workup including echocardiogram with ejection fraction of 55 to 60%, MRI of the brain which was normal save for some small vessel disease and a CT angiogram which revealed moderate left internal carotid artery stenosis of 50 to 69%. He was seen by vascular surgery during this admission and is planned for carotid artery endarterectomy on July 11. When seen on July 11, the patient reports no symptoms at that time. He is understanding he is going for surgery and will need to be replaced on Eliquis following surgery. He is currently on aspirin 325 mg daily; however, medications have been discontinued at this time as he is n.p.o. pending surgery. His LDL is 55 and A1c is 7.4. On exam, the patient has no evidence of neurologic deficits at this time. On reevaluation June 12, it is noted that the patient did not receive carotid endarterectomy yesterday. Vascular surgery is still on board but is considering further intervention based on his clinical course and on future CT angiograms. Patient remains in house with no neurologic complaints at this time and neurologic exam is completely nonfocal. Assessment: Mr. Bailey is an 78-year-old male with history of atrial fibrillation as well as left carotid stenosis of 50 to 69%. He has had some recurrent TIA type events and is currently admitted pending carotid endarterectomy versus other vascular intervention. Plan: 1. I am awaiting recommendations of Dr. Garcia regarding potential vascular surgery intervention for the patient's stroke. 2. He has undergone extensive stroke workup with his previous admission and d oes not need further workup at this time. 3. The patient was formally on Eliquis for his atrial fibrillation but now has been transition to aspirin and Brilinta as per vascular surgery. 4. Neurology will continue to follow him in house however this may be on an intermittent basis from this point forward. Objective - Vital Signs Vital signs: Vital Signs Temp 97.5 F L 07/12/24 11:57 Pulse 58 L 07/12/24 11:57 Resp 20 07/12/24 11:57 BP 111/70 07/12/24 11:57 Pulse Ox 98 07/12/24 11:57 FiO2 Intake & Output 07/11/24 07/12/24 07/12/24 18:59 06:59 18:59 Intake Total 480 180 Balance 480 180 Weight 104.4 kg Intake: Oral 480 180 Other: Voiding Method Toilet # Voids 2 - Labs CBC & Chem 7: 07/09/24 19:36 07/09/24 19:36 Labs: Abnormal Lab Results - Last 24 Hours (Table) 07/11/24 07/11/24 07/12/24 Range/Units 16:58 20:52 06:07 POC Glucose (mg/dL) 247 H 186 H 169 H (70-110) mg/dL 07/12/24 07/12/24 Range/Units 10:44 11:22 POC Glucose (mg/dL) 214 H 200 H (70-110) mg/dL
--- NOTE | 2024-07-14 15:15 | P.DS ---
Providers Date of admission: 07/09/24 20:54 Attending physician: Jaymie Rosales Consults: 07/09/24 20:52 Consult Physician Urgent Consulting Provider: Janeth Celestin Consult Reason/Comments: Carotid artery stenosis Do you want consulting provider notified?: Yes Consult Physician Urgent Consulting Provider: Shayna Pickard Consult Reason/Comments: TIA Do you want consulting provider notified?: Yes 07/11/24 08:58 Consult Physician Routine Consulting Provider: Victor M Zarate Consult Reason/Comments: cardiac clearance for TCAR Do you want consulting provider notified?: Yes [facility] Course: Date of Service 07/12/2024 Final Diagnosis -TIA: Patient has recurrent TIAs vascular and cardiology following with no plans for intervention for the carotid stenosis this admission -Left carotid stenosis 50-69% -Coronary artery disease history of CABG in the past -Type 2 diabetes mellitus: Continue Accu-Cheks and sliding scale insulin patient is on 20 units subcu 3 times a day with meals as well as 20 units of Levemir at at bedtime. -Hypothyroidism -Hyperlipidemia -Hypertension -Gastroesophageal reflux disease Discharge Disposition Patient is stable for discharge home. Patient to follow up with his PCP Dr. Jeyson Grissom. Follow up with Vascular Dr. Gabriel on Aug 09., Follow up with Dr. Zarate in the office. Establish and follow up with neurology. Continue on eliquis 2.5 mg PO BID and brilinta 90 mg BID. Hospital Course Pleasant male came in with complaints of slurred speech and left hand numbness. Patient was recently hospitalized for the same symptoms underwent extensive workup during that hospitalization and at that time carotid Doppler was done which showed stenosis of 50 to 69% on the left side and no occlusion on the right side. His symptoms completely resolved at this time because of his recurrent symptoms vascular surgery evaluated the patient neurology evaluate the patient and patient will undergo carotid endarterectomy. Patient was also having headache which is resolved at this time CT of the head did not show any acute changes. Patient does have history of atrial fibrillation on anticoagulation with Eliquis. Patients symptoms have resolved at this time. He was supposed to follow-up with Dr. Gabriel in the office tomorrow for further recommendations and per the patient was post be scheduled for a carotid endarterectomy. Vascular no plans for surgical intervention at this time. Cardiology did evaluate the patient, He has been resumed on his home dose of Eliquis at this time and continues on brilinta BID. After evaluation of by cardiology they are recommending following up in the office for further recommendations. Please see medicaction reconciliation for a list of current medications. Thank you for allowing us to participate in the care of this patient. Patient Condition at Discharge: Stable Plan - Discharge Summary New Discharge Prescriptions: New Ticagrelor [Brilinta] 90 mg PO BID #60 tab Aspirin 325 mg PO DAILY #30 tab Apixaban [Eliquis] 2.5 mg PO BID tab Continue Levothyroxine Sodium [Synthroid] 200 mcg PO MOTUWETHFRSA Propafenone HCl [Rythmol] 150 mg PO Q8H Metoprolol Tartrate [Lopressor] 50 mg PO BID Atorvastatin [Lipitor] 40 mg PO HS Omeprazole 20 mg PO DAILY glipiZIDE/METFORMIN HCL [glipiZIDE/METFORMIN HCL 5-500 mg] 0.5 tab PO BID- W/MEALS Valsartan/Hydrochlorothiazide [Valsartan-Hctz 160-12.5 mg Tab] 1 tab PO DAILY Cetirizine HCl [Zyrtec] 10 mg PO DAILY oxyBUTYnin chloride [oxyBUTYnin chloride ER] 5 mg PO DAILY Furosemide [Lasix] 20 mg PO DAILY PRN PRN Reason: Edema Levothyroxine Sodium [Synthroid] 300 mcg PO GONZALEZ Nitroglycerin Sl Tabs [Nitrostat] 0.4 mg SUBLINGUAL Q5M PRN PRN Reason: Chest Pain Insulin Lispro [humaLOG Kwikpen] 20 unit SQ AC-TID Insulin Glargine,Hum.rec.anlog [Basaglar Kwikpen U-100] 35 unit SQ HS allopurinoL [Zyloprim] 100 mg PO DAILY Discontinued Apixaban [Eliquis] 5 mg PO BID Clopidogrel [Plavix] 75 mg PO DAILY #30 tab Discharge Medication List Atorvastatin [Lipitor] 40 mg PO HS 11/13/15 [History] Levothyroxine Sodium [Synthroid] 200 mcg PO MOTUWETHFRSA 11/13/15 [History] Metoprolol Tartrate [Lopressor] 50 mg PO BID 11/13/15 [History] Propafenone HCl [Rythmol] 150 mg PO Q8H 11/13/15 [History] Omeprazole 20 mg PO DAILY 11/10/17 [History] Furosemide [Lasix] 20 mg PO DAILY PRN 10/28/22 [History] glipiZIDE/METFORMIN HCL [glipiZIDE/METFORMIN HCL 5-500 mg] 0.5 tab PO BID- W/MEALS 10/28/22 [History] Cetirizine HCl [Zyrtec] 10 mg PO DAILY 07/05/24 [History] Insulin Glargine,Hum.rec.anlog [Basaglar Kwikpen U-100] 35 unit SQ HS 07/05/24 [History] Insulin Lispro [humaLOG Kwikpen] 20 unit SQ AC-TID 07/05/24 [History] Levothyroxine Sodium [Synthroid] 300 mcg PO GONZALEZ 07/05/24 [History] Nitroglycerin Sl Tabs [Nitrostat] 0.4 mg SUBLINGUAL Q5M PRN 07/05/24 [History] Valsartan/Hydrochlorothiazide [Valsartan-Hctz 160-12.5 mg Tab] 1 tab PO DAILY 07/05/24 [History] allopurinoL [Zyloprim] 100 mg PO DAILY 07/05/24 [History] oxyBUTYnin chloride [oxyBUTYnin chloride ER] 5 mg PO DAILY 07/05/24 [History] Apixaban [Eliquis] 2.5 mg PO BID tab 07/12/24 [Rx] Aspirin 325 mg PO DAILY #30 tab 07/12/24 [Rx] Ticagrelor [Brilinta] 90 mg PO BID #60 tab 07/12/24 [Rx] Follow up Appointment(s)/Referral(s): Victor M Zarate MD [STAFF PHYSICIAN] - 1 Week (office will call with follow up appointment date and time) Zaki Gabriel DO [STAFF PHYSICIAN] - 08/09/24 8:15 am Jeyson Grissom MD [Primary Care Provider] - 07/15/24 9:30 am (with [employer] [employer]) Sofia Arenas MD [Medical Doctor] - 1 Week (PLEASE CALL OFFICE WHEN OPEN TO MAKE FOLLOW UP APPOINTMENT) Activity/Diet/Wound Care/Special Instructions: Follow up with neurology in the office. Discharge Disposition: DC/TRNS HOME W/PLND IP REAMDIT
== END 2024-07-12 15:36 | disposition home or self-care, planned readmission (81) ==
LOC: EC 19:14 → 3SCARD 20:54 → OBSVTOIN 20:54 → INTOOBSV 20:54 → 3SCARD 07-10 15:59 → UNDODISIN 07-12 15:36
PROVIDERS: ADMIT Internal Medicine; ATTEND Internal Medicine
DX: R47.81 Slurred speech (principal); R20.0 Anesthesia of skin; R20.2 Paresthesia of skin; I65.22 Occlusion and stenosis of left carotid artery; I48.0 Paroxysmal atrial fibrillation; I25.10 Atherosclerotic heart disease of native coronary artery without angina pectoris; E11.9 Type 2 diabetes mellitus without complications; K21.9 Gastro-esophageal reflux disease without esophagitis; E78.5 Hyperlipidemia, unspecified; I10 Essential (primary) hypertension; I08.3 Combined rheumatic disorders of mitral, aortic and tricuspid valves; E03.9 Hypothyroidism, unspecified; E66.3 Overweight; Z68.31 Body mass index [BMI] 31.0-31.9, adult; Z87.891 Personal history of nicotine dependence; Z95.5 Presence of coronary angioplasty implant and graft; Z79.01 Long term (current) use of anticoagulants; Z79.4 Long term (current) use of insulin; Z79.84 Long term (current) use of oral hypoglycemic drugs; Z79.890 Hormone replacement therapy; Z79.899 Other long term (current) drug therapy
CPT/HCPCS: 96365; 96375; 99285; 36415; 93005; 97165; 80061; 80053; 82550; 84484; 85025; 85610; 85730; 83036; 70450; G0378 ×4; J2060; J2405; J0131; J1171

== ENCOUNTER → 2024-07-26 | Outpatient (CLI) | payer MEDICARE ==
[2024-07-26 10:15] LABS: HGB 15.8 g/dL (13.0-17.0); MCH 30.1 pg (27.0-32.0); MCHC 32.9 g/dL (32.0-37.0); MCV 91.4 FL (80.0-97.0); Mean Platelet Volume 11.3 FL (9.5-12.2); NRBC Per 100 WBC 0 X 10*3/uL (0.00-0.01); Platelet Count 247 X 10*3/uL (140-440); RBC 5.25 X 10*6/uL (4.40-5.60); RDW 13.8 % (11.5-14.5); WBC 6.21 X 10*3/uL (4.50-10.00)
[2024-07-26 15:15] LABS: Anion Gap 9.7 mmol/L (4.00-12.00); Blood Urea Nitrogen 16.2 mg/dL (9.0-27.0); Carbon Dioxide 22.3 mmol/L (21.6-31.8); Potassium 4.3 mmol/L (3.5-5.5)
== END | disposition home or self-care (01) ==
LOC: LABPAT 08:03
PROVIDERS: ATTEND Internal Medicine Interventional Cardiology
DX: Z01.812 Encounter for preprocedural laboratory examination (principal); I65.23 Occlusion and stenosis of bilateral carotid arteries
CPT/HCPCS: 36415; 80051; 82565; 84520; 85027

== ENCOUNTER 2024-08-03 07:30 | Inpatient (IN) | payer MEDICARE ==
[2024-07-29 16:22] VITALS: BMI 19.0
[~2024-08-03 07:30] MED LIST changes: -ASPIRIN 325 MG TAB PO STA; -ATORVASTATIN 80 MG TAB PO STA; -HEPARIN SODIUM,PORCINE 10,000 UNIT in SODIUM CHLORIDE 0.9% 1,000 ML IRRIGATION PRN; -HEPARIN SODIUM,PORCINE 2,500 UNIT in SODIUM CHLORIDE 0.9% 250 ML IRRIGATION PRN; -SODIUM CHLORIDE 0.9% 1,000 ML in EMPTY BAG 1 BAG IV SCH
[2024-08-03] MEDS ORDERED: RX INFO: IV CONTRAST WAS GIVEN 1 EACH MISC MISCELLANE PRN (09:00)
[2024-08-03 09:55] LABS: Glucose,Whole Blood 166 mg/dL (70-110)
[2024-08-03] MEDS: SODIUM CHLORIDE 0.9% 1,000 ML in EMPTY BAG 1 BAG IV ONE (10:26)
[2024-08-03] MEDS: ASPIRIN 81 MG PO PRN (10:27)
[2024-08-03] MEDS: SODIUM CHLORIDE 0.9% 1,000 ML IV ONE (13:48)
[2024-08-03] MEDS: LIDOCAINE 1% INJ 10MG/ML (20 ML MDV) SQ ONE (14:11)
[2024-08-03] MEDS: HEPARIN SODIUM 1,000 UN/ML (10ML VL) IVP ONE ×2 (14:23→14:33)
[2024-08-03] MEDS: IOPAMIDOL-370 200ML BTL INJ ONE (14:51)
[2024-08-03] MEDS ORDERED: glipiZIDE 5 MG TAB PO PRN (14:56)
[2024-08-03] MEDS ORDERED: FUROSEMIDE 20 MG TAB PO PRN (14:56)
[2024-08-03] MEDS ORDERED: NITROGLYCERIN SL TABS 0.4 MG TAB SUBLINGUAL PRN (14:56)
[2024-08-03] MEDS ORDERED: LORATADINE 10 MG TAB PO PRN (14:56)
[2024-08-03] MEDS ORDERED: ATROPINE SULFATE 0.1 MG/ML 10ML SYRINGE IV PRN (14:57)
[2024-08-03] MEDS ORDERED: MAG HYDROX/AL HYDROX/SIMETH 30 ML CUP PO PRN (14:57)
[2024-08-03] MEDS: TICAGRELOR 90 MG TAB PO ONE (14:58)
[2024-08-03] MEDS: HEPARIN SODIUM,PORCINE 10,000 UNIT in SODIUM CHLORIDE 0.9% 1,000 ML IRRIGATION ONE (14:58)
--- NOTE | 2024-08-03 15:04 | P.PCN ---
Date of Procedure: 08/03/24 Operative Findings: Carotid stenting procedure Performing physician MD Victor M Procedure performed Successful stenting of the left internal carotid artery using 10-8 Xact by 30 mm carotid stent with an excellent angiographic results Selective left common and left internal carotid artery angiogram An aortic arch angiogram Right common femoral artery angiogram Ultrasound-guided access of the right common femoral artery Indication Symptomatic 78-year-old gentleman who was diagnosed with severe disease involving the left internal carotid artery Approach Right common femoral artery Complication None Level of sedation The length of the procedure was 43 minutes sedation was not provided Procedure description After obtaining informed consent the patient was brought to the cardiac Continuous Improvement Intern. The right common femoral artery was cannulated using micropuncture technique under ultrasound guidance the micropuncture wire passed easily then I placed a a 90 cm 6 Palestinian sheath over a 035 wire and that was a stiff Glidewire with the sheath was advanced all the way to the proximal descending aorta. Sub sequently an aortic arch angiogram was performed using a pigtail catheter. After that anticoagulation was initiated using heparin with continuous ACT monitoring throughout the procedure. Subsequently I did selective the ostial of the left common carotid artery using JB2 catheter. An angiogram was performed to show the bifurcation of the internal and external carotid arteries. Subsequently an 035 stiff Glidewire was positioned to the left external carotid artery. After that I did advance the sheath which was the shuttle sheath over the 035 stiff Glidewire and the JB2 catheter all the way to the mid left common carotid artery. Left internal carotid artery angiogram was performed. After that I did place a filter wire in the distal left internal carotid artery. Subsequently predilatation was performed using 4 mm balloon before we deployed 108 Xact by 30 mm carotid stent where the stent was positioned under fluoroscopy guidance and deployed under fluoroscopy guidance and postdilated using 5 mm balloon. Final angiogram showed good angiographic results and the procedure was completed with no complication but subsequently I did exchange my long sheath into short sheath using 035 wire before I did selective right common femoral artery angiogram and deployed a Perclose with good hemostasis Postprocedure management ICU admission Continue antiplatelet and anticoagulation Follow-up with the patient
[2024-08-03 15:38] LABS: Glucose,Whole Blood 119 mg/dL (70-110)
[2024-08-03] MEDS: SODIUM CHLORIDE 0.9% 1,000 ML IV SCH (16:00)
[2024-08-03] MEDS: LEVOTHYROXINE 100 MCG TAB PO SCH (16:50)
[2024-08-03] MEDS: INSULIN ASPART (NovoLOG) 100 UNIT/ML VIAL SQ SCH (16:54)
[2024-08-03] MEDS: APIXABAN 5 MG TAB PO SCH (17:51)
[2024-08-03 20:32] LABS: Glucose,Whole Blood 237 mg/dL (70-110)
[2024-08-03] MEDS ORDERED: ATORVASTATIN 40 MG TAB PO SCH (21:00)
[2024-08-03] MEDS: INSULIN DETEMIR (LEVEMIR) 100 UNIT/ML SYR SQ SCH (21:28)
[2024-08-03] MEDS: VALSARTAN 160 MG TAB PO SCH (21:28)
[2024-08-03] MEDS: TICAGRELOR 90 MG TAB PO SCH (21:28)
[2024-08-03] MEDS: ATORVASTATIN 40 MG TAB PO SCH (21:28)
[2024-08-03] MEDS: METOPROLOL TARTRATE 50 MG TAB PO SCH (21:28)
[2024-08-03] MEDS: PROPAFENONE 150 MG TAB PO SCH (21:28)
[2024-08-04 05:19] LABS: Basophils # (A) 0.1 k/uL (0-0.2); Basophils % (A) 1 %; Eosinophils # (A) 0.2 k/uL (0-0.7); Eosinophils % (A) 2 %; HCT 44.3 % (39.0-53.0); HGB 14.3 gm/dL (13.0-17.5); Lymphocytes # (A) 1.9 k/uL (1.0-4.8); Lymphocytes % (A) 24 %; MCH 30.8 pg (25.0-35.0); MCHC 32.3 g/dL (31.0-37.0); MCV 95.6 fL (80.0-100.0); Mean Platelet Volume 7.7; Monocytes # (A) 0.6 k/uL (0-1.0); Monocytes % (A) 8 %; Neutrophils % (A) 62 %; Platelet Count 192 k/uL (150-450); RBC 4.64 m/uL (4.30-5.90); RDW 13.8 % (11.5-15.5)
[2024-08-04 05:29] LABS: African American GFR (CKD) >90 (>60 ml/min/1.73 sqM); Anion Gap 7 mmol/L; Blood Urea Nitrogen 15 mg/dL (9-20); Calcium 8.9 mg/dL (8.4-10.2); Carbon Dioxide 27 mmol/L (22-30); Chloride 102 mmol/L (98-107); Glucose 140 mg/dL (74-99); Non-African American GFR(CKD) 82 (>60 ml/min/1.73 sqM); Potassium 4.5 mmol/L (3.5-5.1); Sodium 136 mmol/L (137-145)
[2024-08-04] MEDS ORDERED: CLOPIDOGREL 75 MG TAB PO SCH (09:00)
[2024-08-04] MEDS: allopurinoL 100 MG TAB PO SCH (09:14)
[2024-08-04] MEDS: ASPIRIN 81 MG PO SCH (09:14)
[2024-08-04] MEDS: OXYBUTYNIN XL 5 MG TAB.ER.24 PO SCH (09:15)
[2024-08-04] MEDS: PANTOPRAZOLE 40 MG TABLET PO SCH (09:15)
[2024-08-04 09:27] VITALS: TEMP 97.8
--- NOTE | 2024-08-04 10:38 | CA ---
Transthoracic Echo Report Name: Jeyson Bailey Age: 78 Gender: M : 1945 Exam Date: 08/04/2024 08:40 Exam Location: [place] [facility] Ht (in): 72 Wt (lb): 235 Ordering Physician: Victor M Zarate MD ([id number]) Attending/Referring Phys: Field Technical Assistant Earnestine Villagran, CHIKIS Procedure CPT: Indications: sob, aortic sten evaluate valve and left vent func Cardiac Hx: Technical Quality: Fair Contrast 1: Definity Total Dose (mL): 2 Contrast 2: Total Dose (mL): MEASUREMENTS (Male / Female) Normal Values 2D ECHO LV Diastolic Diameter PLAX 4.8 cm 4.2 - 5.9 / 3.9 - 5.3 cm LV Systolic Diameter PLAX 2.9 cm IVS Diastolic Thickness 1.1 cm 0.6 - 1.0 / 0.6 - 0.9 cm LVPW Diastolic Thickness 1.0 cm 0.6 - 1.0 / 0.6 - 0.9 cm LV Relative Wall Thickness 0.4 RV Internal Dim ED PLAX 2.7 cm LVOT Diameter 2.1 cm LA Systolic Diameter LX 4.2 cm 3.0 - 4.0 / 2.7 - 3.8 cm LA Volume 84.4 cm??? 18 - 58 / 22 - 52 cm??? LA Volume Index 35.8 cm???/m??? 16 - 28 cm???/m??? M-MODE Aortic Root Diameter MM 3.2 cm LA Systolic Diameter MM 3.8 cm LA Ao Ratio MM 1.2 AV Cusp Separation MM 0.6 cm DOPPLER AV Peak Velocity 366.2 cm/s AV Peak Gradient 53.6 mmHg AV Mean Velocity 251.8 cm/s AV Mean Gradient 31.9 mmHg AV Velocity Time Integral 73.7 cm AI Peak Velocity 328.4 cm/s AI Peak Gradient 43.2 mmHg AI Pressure Half Time 831.8 ms LVOT Peak Velocity 81.7 cm/s LVOT Peak Gradient 2.7 mmHg LVOT Velocity Time Integral 21.3 cm LVOT Stroke Volume 71.3 cm??? LVOT Stroke Volume Index 31.2 ml/m??? LVOT Cardiac Index 2480.8 cm???/min???m??? AV Area Cont Eq vti 1.0 cm??? AV Area Cont Eq pk 0.7 cm??? TR Peak Velocity 231.0 cm/s TR Peak Gradient 21.4 mmHg Right Ventricular Systolic Press 24.4 mmHg FINDINGS Left Ventricle Left ventricular ejection fraction is estimated at 55-60%. Normal left ventricular systolic function with no obvious regional wall motion abnormalities. Left ventricular cavity size normal. Right Ventricle . Right ventricular systolic pressure within normal limits. Normal right ventricular size and function. Right Atrium Moderate right atrial dilatation. Left Atrium Moderately increased left atrial volume. Mitral Valve Structurally normal mitral valve. Iirt-sd-mquvlkbt mitral regurgitation. No mitral stenosis. Aortic Valve [id number]-[id number] aortic stenosis with a peak gradient of 53mmHg and a mean gradient of 32mmHg. Mild aortic regurgitation. Tricuspid Valve Structurally normal tricuspid valve. Mild tricuspid regurgitation. No tricuspid stenosis. Pulmonic Valve Structurally normal pulmonic valve. Trace pulmonic regurgitation. No pulmonic stenosis. Pericardium No pericardial or pleural effusion. Aorta Normal size aortic root and proximal ascending aorta. CONCLUSIONS LVEF 55%. Mild concentric LVH No obvious regional wall motion abnormality Moderate biatrial dilatation Moderate mitral regurgitation Calcified trileaflet aortic valve with moderate aortic stenosis, mean gradient 32 mmHg, VTI ratio 0.28. Mild aortic regurgitation Previewed by: Dr Karl Trevino (Electronically Signed) Final Date: 04 August 2024 10:38
[2024-08-04 11:20] LABS: Glucose,Whole Blood 117 mg/dL (70-110)
[2024-08-04 12:20] VITALS: BP 105/65; PULSE 60; RESP 28
--- NOTE | 2024-08-05 12:37 | IR ---
EXAMINATION TYPE: IR stent intravas non coronary DATE OF EXAM: 08/03/2024 3:21 PM COMPARISON: Pre Operative Images if available both CT/MRI or plain film CLINICAL INDICATION: Male, 78 years old with history of TIA, 11.7m/21.8DAP, Rt gr perclose.; TECHNIQUE: IR stent intravas non coronary, multiple fluoroscopic images provided for procedure. Total fluoroscopy time: 11.7 seconds Total submitted images to PACS: [id number] DAP: 21.8 mGym2 Gycm2 uGym2 cGycm2 or equivalent. FINDINGS: IMPRESSION: 1. Report was generated for administrative purposes only. 2. Please see the operative/procedural note for further details. [facility], , 08/05/2024 12:35 PM
[2024-08-05] MEDS ORDERED: metFORMIN 500 MG TAB PO PRN (15:00)
[2024-08-07] MEDS ORDERED: LEVOTHYROXINE 100 MCG TAB PO SCH (06:30)
== END 2024-08-04 14:55 | disposition home or self-care (01) | DRG 36 ==
LOC: 2ORMAIN 09:29 → 2SICU 15:08
PROVIDERS: ADMIT Internal Medicine Interventional Cardiology; ATTEND Internal Medicine Interventional Cardiology
PROC: 037L34Z Dilation of Left Internal Carotid Artery with Drug-eluting Intraluminal Device, Percutaneous Approach (ICD-10-PCS; principal; 2024-08-03 13:00)
PROC: B3171ZZ Fluoroscopy of Left Internal Carotid Artery using Low Osmolar Contrast (ICD-10-PCS; 2024-08-03 13:00)
DX: I65.23 Occlusion and stenosis of bilateral carotid arteries (principal); E11.9 Type 2 diabetes mellitus without complications; I48.0 Paroxysmal atrial fibrillation; Z79.4 Long term (current) use of insulin; I10 Essential (primary) hypertension; I35.0 Nonrheumatic aortic (valve) stenosis; E78.5 Hyperlipidemia, unspecified; Z95.1 Presence of aortocoronary bypass graft; Z79.84 Long term (current) use of oral hypoglycemic drugs; Z79.01 Long term (current) use of anticoagulants; Z79.890 Hormone replacement therapy; Z79.899 Other long term (current) drug therapy; Z95.5 Presence of coronary angioplasty implant and graft; Z86.73 Personal history of transient ischemic attack (TIA), and cerebral infarction without residual deficits
CPT/HCPCS: 37215; 76937; 80048; 84484; 85025; 93306

== ENCOUNTER 2024-10-10 06:09 | Day surgery (SDC) | payer MEDICARE ==
[~2024-10-10 06:09] MED LIST changes: -ALPRAZolam 0.25 MG TAB PO PRN; -ALPRAZolam 0.5 MG TAB PO PRN; -NITROGLYCERIN SL TABS 0.4 MG TAB SUBLINGUAL PRN; +SODIUM CHLORIDE 0.9% 500 ML 500 ML IV SCH
[2024-10-10] MEDS ORDERED: LACTATED RINGERS 1,000 ML IV SCH (06:33)
[2024-10-10] MEDS ORDERED: LIDOCAINE 1% (10MG/ML) FOR IV START INTRADERMA PRN (06:33)
[2024-10-10] MEDS: IV FLUID CONTINUATION 500 ML IV ONE (06:42)
[2024-10-10 06:55] VITALS: TEMP 97.5
[2024-10-10 07:07] LABS: Glucose,Whole Blood 153 mg/dL (70-110)
[2024-10-10 07:29] LABS: African American GFR (CKD) 69 (>60 ml/min/1.73 sqM); Anion Gap 10 mmol/L; Blood Urea Nitrogen 23 mg/dL (9-20); Calcium 9.2 mg/dL (8.4-10.2); Carbon Dioxide 22 mmol/L (22-30); Chloride 104 mmol/L (98-107); Glucose 170 mg/dL (74-99); Non-African American GFR(CKD) 60 (>60 ml/min/1.73 sqM); Sodium 136 mmol/L (137-145)
[2024-10-10 07:31] LABS: Potassium 5.1 mmol/L (3.5-5.1)
[2024-10-10] MEDS ORDERED: LIDOCAINE 1% INJ 10MG/ML (20 ML MDV) ONE (07:41)
[2024-10-10] MEDS ORDERED: PROPOFOL 10 MG/ML 20 ML VIAL IV ONE (07:41)
--- NOTE | 2024-10-10 07:54 | P.DS ---
Providers Attending physician: Victor M Zarate Primary care physician: [facility] Course: Cardioversion Report Performing physician Victor M Zarate M.D. Procedure performed Successful cardioversion of atrial fibrillation to normal sinus mechanism using 120 J at first attempt Indication Symptomatic atrial fibrillation Complication None Level of sedation The procedure was performed under deep sedation using propofol with EVENING OR NIGHT NURSE SUPERVISOR in the room Procedure description After obtaining an informed consent the patient was brought to the recovery room. Sedation was introduced using propofol with EVENING OR NIGHT NURSE SUPERVISOR in the room. Subsequently the patient cardioverted from atrial fibrillation to normal sinus mechanism using 200 J and first attempt Conclusion Successful cardioversion of atrial fibrillation to normal sinus mechanism using 200 J Postprocedure management Continue the current medical regimen Continue oral anticoagulation Follow-up with the patient Plan - Discharge Summary Discharge Rx Participant: No New Discharge Prescriptions: New Amiodarone [Cordarone] 200 mg PO BID #180 tab Continue Levothyroxine Sodium [Synthroid] 200 mcg PO MOTUWETHFRSA Atorvastatin [Lipitor] 40 mg PO HS Omeprazole 20 mg PO QAM glipiZIDE/METFORMIN HCL [glipiZIDE/METFORMIN HCL 5-500 mg] 0.5 tab PO BID- W/MEALS PRN PRN Reason: Blood Sugar - High Cetirizine HCl [Zyrtec] 10 mg PO DAILY PRN PRN Reason: Allergic Reaction Ticagrelor [Brilinta] 90 mg PO BID #60 tab Apixaban [Eliquis] 5 mg PO BID Aspirin [Adult Low Dose Aspirin EC] 81 mg PO Q48H amLODIPine [Norvasc] 5 mg PO DAILY Metoprolol Tartrate 25 mg PO BID Furosemide [Lasix] 20 mg PO DAILY PRN PRN Reason: Edema Levothyroxine Sodium [Synthroid] 300 mcg PO GONZALEZ Nitroglycerin Sl Tabs [Nitrostat] 0.4 mg SUBLINGUAL Q5M PRN PRN Reason: Chest Pain Insulin Lispro [humaLOG Kwikpen] 20 unit SQ AC-TID Insulin Glargine,Hum.rec.anlog [Basaglar Kwikpen U-100] 30 unit SQ HS allopurinoL [Zyloprim] 100 mg PO HS Valsartan 160 mg PO BID Discontinued Amiodarone [Cordarone] 400 mg PO BID Discharge Medication List Atorvastatin [Lipitor] 40 mg PO HS 11/13/15 [History] Levothyroxine Sodium [Synthroid] 200 mcg PO MOTUWETHFRSA 11/13/15 [History] Omeprazole 20 mg PO QAM 11/10/17 [History] Furosemide [Lasix] 20 mg PO DAILY PRN 10/28/22 [History] glipiZIDE/METFORMIN HCL [glipiZIDE/METFORMIN HCL 5-500 mg] 0.5 tab PO BID- W/MEALS PRN 10/28/22 [History] Cetirizine HCl [Zyrtec] 10 mg PO DAILY PRN 07/05/24 [History] Insulin Glargine,Hum.rec.anlog [Basaglar Kwikpen U-100] 30 unit SQ HS 07/05/24 [History] Insulin Lispro [humaLOG Kwikpen] 20 unit SQ AC-TID 07/05/24 [History] Levothyroxine Sodium [Synthroid] 300 mcg PO GONZALEZ 07/05/24 [History] Nitroglycerin Sl Tabs [Nitrostat] 0.4 mg SUBLINGUAL Q5M PRN 07/05/24 [History] allopurinoL [Zyloprim] 100 mg PO HS 07/05/24 [History] Ticagrelor [Brilinta] 90 mg PO BID #60 tab 07/12/24 [Rx] Apixaban [Eliquis] 5 mg PO BID 07/29/24 [History] Aspirin [Adult Low Dose Aspirin EC] 81 mg PO Q48H 07/29/24 [History] Valsartan 160 mg PO BID 07/29/24 [History] Metoprolol Tartrate 25 mg PO BID 10/06/24 [History] amLODIPine [Norvasc] 5 mg PO DAILY 10/06/24 [History] Amiodarone [Cordarone] 200 mg PO BID #180 tab 10/10/24 [Rx] Follow up Appointment(s)/Referral(s): Victor M Zarate MD [STAFF PHYSICIAN] - 1 Week
[2024-10-10 08:03] VITALS: RESP 16
[2024-10-10 08:48] VITALS: BP 125/73; PULSE 57
== END 2024-10-10 09:05 | disposition home or self-care (01) ==
LOC: OR 06:09
PROVIDERS: ATTEND Internal Medicine Interventional Cardiology
DX: I48.11 Longstanding persistent atrial fibrillation (principal); I10 Essential (primary) hypertension; I25.10 Atherosclerotic heart disease of native coronary artery without angina pectoris; Z95.5 Presence of coronary angioplasty implant and graft; Z95.1 Presence of aortocoronary bypass graft; E11.9 Type 2 diabetes mellitus without complications; E78.5 Hyperlipidemia, unspecified; I08.2 Rheumatic disorders of both aortic and tricuspid valves; I65.23 Occlusion and stenosis of bilateral carotid arteries; E07.9 Disorder of thyroid, unspecified; K21.9 Gastro-esophageal reflux disease without esophagitis; Z79.890 Hormone replacement therapy; Z79.4 Long term (current) use of insulin; Z79.84 Long term (current) use of oral hypoglycemic drugs; Z79.01 Long term (current) use of anticoagulants; Z79.82 Long term (current) use of aspirin; Z79.02 Long term (current) use of antithrombotics/antiplatelets; Z79.899 Other long term (current) drug therapy; Z79.1 Long term (current) use of non-steroidal anti-inflammatories (NSAID); Z86.73 Personal history of transient ischemic attack (TIA), and cerebral infarction without residual deficits; Z82.49 Family history of ischemic heart disease and other diseases of the circulatory system; Z88.8 Allergy status to other drugs, medicaments and biological substances
CPT/HCPCS: 92960; 80048; J2003; J2704

== ENCOUNTER 2024-11-01 08:41 | Day surgery (SDC) | payer MEDICARE ==
[2024-10-28 11:28] VITALS: BMI 32.8
[~2024-11-01 08:41] MED LIST changes: +ALPRAZolam 0.25 MG TAB PO PRN; +ALPRAZolam 0.5 MG TAB PO PRN; +BENZOCAINE SPRAY 1 EACH MM SCH; +HEPARIN SODIUM,PORCINE (1 ML) 2,500 UNIT in SODIUM CHLORIDE 0.9% 250 ML IRRIGATION PRN; +HEPARIN SODIUM,PORCINE 10,000 UNIT in SODIUM CHLORIDE 0.9% 1,000 ML IRRIGATION PRN; +NITROGLYCERIN SL TABS 0.4 MG TAB SUBLINGUAL PRN; -SODIUM CHLORIDE 0.9% 500 ML 500 ML IV SCH
[2024-11-01] MEDS: SODIUM CHLORIDE 0.9% 1,000 ML in EMPTY BAG 1 BAG IV SCH (08:52)
[2024-11-01] MEDS: ASPIRIN 325 MG TAB PO ONE (08:56)
[2024-11-01] MEDS: IV FLUID CONTINUATION 1,000 ML IV ONE ×2 (08:58→10:36)
[2024-11-01 09:20] VITALS: TEMP 97.8
[2024-11-01 09:23] LABS: Glucose,Whole Blood 171 mg/dL (70-110)
[2024-11-01] MEDS: BENZOCAINE SPRAY 1 EACH MUCOUS MEM ONE (10:35)
[2024-11-01] MEDS: fentaNYL (PF) 50 MCG/ML 2 ML AMP IVP ONE (10:57)
[2024-11-01] MEDS: MIDAZOLAM 2 MG/2 ML VIAL IVP ONE ×2 (10:58→11:01)
[2024-11-01] MEDS: LIDOCAINE 1% INJ 10MG/ML (20 ML MDV) SQ ONE (11:20)
[2024-11-01] MEDS: HEPARIN SODIUM 1,000 UN/ML (10ML VL) IV ONE (11:48)
[2024-11-01] MEDS: IOPAMIDOL-370 100ML BTL INJ ONE (11:53)
[2024-11-01] MEDS ORDERED: RX INFO: IV CONTRAST WAS GIVEN 1 EACH MISC MISCELLANE PRN (11:59)
[2024-11-01] MEDS ORDERED: SODIUM CHLORIDE 0.9% 1,000 ML IV SCH (12:00)
--- NOTE | 2024-11-01 12:02 | P.PCN ---
Date of Procedure: 11/01/24 Operative Findings: TRANSESOPHAGEAL ECHOCARDIOGRAM DISPATCH OFFICER: LAKSHMI RAY MD, RPVI INDICATION: Aortic stenosis SEDATION: Conscious sedation COMPLICATION: None LEVEL OF SEDATION Moderate with sedation length of 18-minute PROCEDURE DESCRIPTION: After obtaining an informed consent, the patient was brought to transesophageal echocardiogram room. Pulse oximetry and heart monitors were attached to the patient. The patient throat was sprayed using lidocaine. The patient was turned into left lateral position. After that a bite guard was placed. After an appropriate conscious sedation was initiated, the transesophageal echocardiogram was advanced through a bite guard into the mid esophagus. A 2-D echocardiogram images, color Doppler images, continuous wave images, pulse-wave images, of various cardiac structure were performed. After that the transesophageal echocardiogram probe was advanced into the stomach and fixed to obtain transgastric view was. The probe was brought into the mid esophagus. Inter-atrial septum was interrogated using 2D images, color Doppler images, and then contrast study. After that transesophageal echocardiogram was withdrawn out and upon withdrawing the descending thoracic aorta all the way up to the arch was evaluated. CONCLUSION: 1. Normal biventricular systolic function 2. Aortic sclerosis with moderate aortic stenosis by gradient 3. Mild to moderate MR 4. Intact interatrial septum 5. No pericardial effusion
--- NOTE | 2024-11-01 12:06 | P.PCN ---
Date of Procedure: 11/01/24 Operative Findings: CARDIAC CATHETERIZATION PERFORMING PHYSICIAN: Victor M Zarate MD, RPVI PROCEDURE PERFORMED: 1. Selective right and left coronary angiogram and MONTGOMERY to LAD angiogram 2. Left heart catheterization and right heart catheterization 3. Ultrasound-guided access of the right common femoral artery as well as ultrasound-guided access of the right common femoral vein and selective right common femoral artery angiogram INDICATION: Aortic stenosis COMPLICATION: None APPROACH: Right common femoral artery LEVEL OF SEDATION: Moderate with sedation in length of 35 minutes PROCEDURE DESCRIPTION: After obtaining an informed consent, the patient was brought to cardiac recyclable materials distributor. Local anesthesia was performed using lidocaine subcutaneously. The right common femoral artery was cannulated using Seldinger technique, the guidewire passed easily, following that we advanced a 6 [place] sheath dilator assembly, the wire and dilator were removed and sheath was flushed. The right common femoral vein was also cannulated using micropuncture technique under ultr asound guidance a micropuncture wire passed easily then I placed a 6 [place] sheath at the right common femoral vein. Right heart catheterization was performed using 6 [place] Jbphh catheter. Selective right and left coronary angiogram using a 6-[place] JR4 and JL catheters. Subsequently the MONTGOMERY to LAD angiogram was performed using the JR4 catheter. After that we did an IFR of the diagonal branch. After zeroing the Dobler wire and equalizing between the Dobler wire and guiding catheter the left main was engaged and the diagonal was wired with IFR came to be at 0.90 Left heart catheterization was performed using an AL-1 after the valve was crossed using an AL-1 with a straight wire The procedure was completed there was no complication. SELECTIVE CORONARY ANGIOGRAM: The right coronary artery: Large caliber vessel with mild to moderate diffuse disease Left main: Is angiographically normal The left circumflex: Large caliber vessel with no evidence of high-grade stenosis The left anterior descending artery: Proximal LAD is occluded but the MONTGOMERY to LAD is patent. The LAD proximally gives rise into a diagonal branch which has intermediate to severe lesion documented to be borderline nonflow-limiting by Doppler wire HEMODYNAMICS: The pulmonary capillary wedge pressure was 18 mmHg PA pressures were as follows systolic of 40 and diastolic of 10 and mean of 24 mmHg RV pressures were as follows systolic of 41 and end-diastolic of 10 mmHg Right atrial pressure was 8 mmHg The LVEDP was 13 mmHg The cardiac output was 5.31 L/min with a cardiac index of 2.3 L/min/m The aortic valve area was 1.15 cm with aortic area index of 0.50 cm/m CONCLUSION: 1. Moderate aortic stenosis by gradient and severe aortic stenosis by area with possible low-flow low gradient paradoxical severe aortic stenosis 2. Mildly elevated biventricular filling pressures 3. Severe single-vessel CAD with occluded LAD and patent MONTGOMERY to LAD and intermediate disease involving a diagonal branch documented to be nonflow- limiting by Doppler wire POSTPROCEDURE MANAGEMENT: Evaluate the patient for TAVR
[2024-11-01 15:49] VITALS: BP 172/88; RESP 16
[2024-11-01 16:27] VITALS: PULSE 56
== END 2024-11-01 16:40 | disposition home or self-care (01) ==
LOC: CATHCVL 08:41
PROVIDERS: ATTEND Internal Medicine Interventional Cardiology
DX: I25.10 Atherosclerotic heart disease of native coronary artery without angina pectoris (principal); I35.0 Nonrheumatic aortic (valve) stenosis; I70.0 Atherosclerosis of aorta; I10 Essential (primary) hypertension; E78.5 Hyperlipidemia, unspecified; E11.8 Type 2 diabetes mellitus with unspecified complications; I48.0 Paroxysmal atrial fibrillation; Z86.73 Personal history of transient ischemic attack (TIA), and cerebral infarction without residual deficits; Z79.01 Long term (current) use of anticoagulants; Z79.899 Other long term (current) drug therapy; Z79.82 Long term (current) use of aspirin; Z88.8 Allergy status to other drugs, medicaments and biological substances
CPT/HCPCS: 99152; 99153; 93312; 93320; 93325; 93461; 93799; C1769 ×3; C1760 ×2; C1887; C1894; C1751; J2250; J2003; J3010; J1644; Q9967

== ENCOUNTER → 2024-11-15 | Outpatient (CLI) | payer MEDICARE ==
[2024-11-15 10:06] LABS: INR 1.1 (<1.2); Partial Thromboplastin Time 26.5 sec (22.0-30.0)
[2024-11-15 10:07] LABS: Basophils # (A) 0.05 10*3/uL (0.00-0.10); Basophils % (A) 0.5 %; Eosinophils # (A) 0.16 10*3/uL (0.04-0.35); Eosinophils % (A) 1.7 %; HCT 39.1 % (39.6-50.0); HGB 13.3 g/dL (13.0-17.0); Lymphocytes % (A) 19.3 %; MCH 31.3 pg (27.0-32.0); Mean Platelet Volume 10.4 fL (9.5-12.2); Monocytes # (A) 0.97 10*3/uL (0.20-1.00); Monocytes % (A) 10.4 %; Neutrophils % (A) 67.8 %; Platelet Count 296 10*3/uL (140-440); RBC 4.25 10*6/uL (4.40-5.60); RDW 13.9 % (11.5-14.5); WBC 9.31 10*3/uL (4.50-10.00)
[2024-11-15 10:10] LABS: ALT 30 U/L (4-49); AST 27 U/L (17-59); African American GFR (CKD) 81 (>60 ml/min/1.73 sqM); Albumin 4.1 g/dL (3.5-5.0); Albumin/Globulin Ratio 1.1; Alkaline Phosphatase 130 U/L (38-126); Anion Gap 12 mmol/L; Blood Urea Nitrogen 18 mg/dL (9-20); Calcium 9.3 mg/dL (8.4-10.2); Carbon Dioxide 24 mmol/L (22-30); Chloride 103 mmol/L (98-107); Globulin 3.7 g/dL; Glucose 155 mg/dL (74-99); Magnesium 1.8 mg/dL (1.6-2.3); Non-African American GFR(CKD) 70 (>60 ml/min/1.73 sqM); Potassium 4.3 mmol/L (3.5-5.1); Sodium 139 mmol/L (137-145); Total Bilirubin 1.2 mg/dL (0.2-1.3); Total Protein 7.8 g/dL (6.3-8.2)
[2024-11-15 10:19] LABS: NT-Pro-B-Type Natriuretic Pept 956 pg/mL
--- NOTE | 2024-11-15 14:40 | CT ---
EXAMINATION TYPE: CT TAVR Planning DATE OF EXAM: 11/15/2024 COMPARISON: None CLINICAL INDICATION: Male, 79 years old with history of I35.1 NONRHEUMATIC AORTIC (VALVE) INSUFFICIEN CY; nonrheumatic aortic valve insufficiency TAVR TECHNIQUE: CT scan of the Neck, chest, abdomen and pelvis is performed with IV contrast; Helical imaging obtaine d through the chest, abdomen and pelvis during arterial phase dynamic administration of radiographic contrast intravenously. MIP imaging performed on a [facility] work station and submitted for review. CONTRAST: 100 mL of Isovue 370. CT DLP: 2683.40 mGycm, Automated exposure control for dose reduction was used. CT CTDI: mGy FINDINGS: See report from [employer] regarding preprocedural planning HEART AND PERICARDIUM: The heart is mildly enlarged. There is no pericardial effusion. Severe coronar y artery calcifications present. AV Calcification Severity: Moderate/Severe ARTERIAL VASCULATURE: The aortic arch and thoracic aorta demonstrate a normal course and caliber. The ascending thoracic ao rta measures up to 33 mm. The pulmonary outflow tract appears within normal limits for size. The desc ending thoracic aorta is within normal limits for size. The thoracic aorta is normal in course and ca liber. There is no evidence of aortic dissection, aneurysm or acute aortic injury. Great arch vessels patent and normal in course and caliber. PULMONARY ARTERIAL VASCULATURE: Normal caliber., No evidence for central filling defect. NECK AND THYROID: Left common carotid artery stent graft appears patent. The carotid bifurcations are patent. CHEST: LUNGS: Left upper lobe lateral groundglass opacity measuring 23 mm and left lower lobe medial airspac e consolidation. No honeycombing no focal consolidation pneumothorax present. LARGE AIRWAYS: Central airways are patent. PLEURAL: No pleural effusion or thickening. No pneumothorax. MEDIASTINUM AND TALIA: No mediastinal or hilar lymphadenopathy or soft tissue mass. SOFT TISSUES/LYMPH NODES: Unremarkable.Normal. MUSCULOSKELETAL: Mild disc degeneration changes are present throughout the thoracolumbar spine. ABDOMEN/PELVIS: Please note arterial phase of the imaging limits detailed evaluation of the solid abdominal organs. ABDOMEN LIVER: Unremarkable GALLBLADDER AND BILE DUCTS: Unremarkable. PANCREAS: Unremarkable. SPLEEN: Unremarkable. ADRENAL GLANDS: Unremarkable. KIDNEYS AND URETERS: Excreted IV contrast seen within the intrarenal collecting systems. No evidence of hydronephrosis or renal calculus. The ureters are unremarkable. PELVIS BLADDER: Unremarkable REPRODUCTIVE: Unremarkable. ABDOMEN & PELVIS STOMACH AND BOWEL: No evidence of bowel obstruction. Calcified granuloma in the left lower quadrant m esentery. Predominate peripherally calcified. PERITONEUM/RETROPERITONEUM: No evidence of pneumoperitoneum or free fluid. VASCULATURE: No evidence of aortic aneurysm. MUSCULOSKELETAL: No acute osseous abnormalities. Moderate disc degeneration changes are present throu ghout the thoracolumbar spine. Grade 1 anterolisthesis of L4 and L5. No evidence for spondylolysis. LYMPH NODES: No gross evidence for lymphadenopathy. SOFT TISSUE/ABDOMINAL WALL: Tiny fat-containing umbilical hernia. Other Lines/Tubes/Devices/Hardware: None IMPRESSION: 1. Moderate/Severe calcifications of the aortic valve. 2. See report from [employer] regarding preprocedural planning 3. Left upper lobe ground glass opacity in right lower lobe total atelectasis versus airspace opacity thought to be present.. Short-term follow-up imaging in 3 months recommended to ensure resolution. [facility], , 11/15/2024 2:38 PM
[2024-11-15 15:03] LABS: Chol/HDL Ratio 2.36 Ratio; LDL Cholesterol,Calculated 50.4 mg/dL (0.0-131.0); T4, Free (Free Thyroxine) 2.33 ng/dL (0.80-1.80); VLDL Calculation 18.78 mg/dL (5.00-40.00)
[2024-11-15 15:22] LABS: Hepatitis A Antibody IgM Nonreactive (Nonreactive); Hepatitis B Core IgM Nonreactive (Nonreactive); Hepatitis B Surface Antigen Nonreactive (Nonreactive); Hepatitis C IgG Antibody Nonreactive (Nonreactive)
[2024-11-15 15:35] LABS: Appearance,Urine Clear (Clear); Bilirubin,Urine Negative (Negative); Blood,Urine Negative (Negative); Color,Urine Yellow (Yellow); Ketones,Urine Negative (Negative); Nitrite,Urine Negative (Negative); PH, Urine 5.5; Specific Gravity,Urine 1.014 (1.001-1.030); Urobilinogen,Urine 0.2 E.U./DL
== END | disposition home or self-care (01) ==
LOC: LABWHC1 09:05
PROVIDERS: ATTEND Thoracic Surgery (Cardiothoracic Vascular Surgery)
DX: Z01.818 Encounter for other preprocedural examination (principal); I70.0 Atherosclerosis of aorta; I35.2 Nonrheumatic aortic (valve) stenosis with insufficiency; I44.30 Unspecified atrioventricular block; I48.92 Unspecified atrial flutter; E87.8 Other disorders of electrolyte and fluid balance, not elsewhere classified; E07.9 Disorder of thyroid, unspecified; E11.9 Type 2 diabetes mellitus without complications; N28.9 Disorder of kidney and ureter, unspecified; E78.5 Hyperlipidemia, unspecified; R35.0 Frequency of micturition; R58 Hemorrhage, not elsewhere classified; R94.31 Abnormal electrocardiogram [ECG] [EKG]; Z79.899 Other long term (current) drug therapy; Z79.01 Long term (current) use of anticoagulants
CPT/HCPCS: 94150; 84439; 83880; 80061; 80053; 80074; 84443; 83735; 85025; 85610; 85730; 81003; 87086; 83036; 71275; 36415 ×2; 74174; 93005; Q9967

== ENCOUNTER → 2024-12-05 | Outpatient (CLI) | payer MEDICARE | END | disposition E | LOC: LABWHC1 13:01 | PROVIDERS: ATTEND Thoracic Surgery (Cardiothoracic Vascular Surgery) | DX: Z01.812 Encounter for preprocedural laboratory examination (principal); I35.0 Nonrheumatic aortic (valve) stenosis | CPT/HCPCS: 86850; 86900; 86901 ==

== ENCOUNTER 2024-12-07 09:45 | Inpatient (IN) | payer MEDICARE ==
[~2024-12-07 09:45] MED LIST changes: -ALPRAZolam 0.25 MG TAB PO PRN; -ALPRAZolam 0.5 MG TAB PO PRN; -BENZOCAINE SPRAY 1 EACH MM SCH; +CLEVIDIPINE BUTYRATE 25 MG in EMPTY BAG 1 BAG IV PRN; +ELECTROLYTE-A SOLUTION 1,000 ML with POTASSIUM CHLORIDE 100 MEQ, MAGNESIUM SULFATE 16 M... IV PRN; -HEPARIN SODIUM,PORCINE (1 ML) 2,500 UNIT in SODIUM CHLORIDE 0.9% 250 ML IRRIGATION PRN; -HEPARIN SODIUM,PORCINE 10,000 UNIT in SODIUM CHLORIDE 0.9% 1,000 ML IRRIGATION PRN; +INSULIN REGULAR 100 UNIT in SODIUM CHLORIDE 0.9% 100 ML IV PRN; -NITROGLYCERIN SL TABS 0.4 MG TAB SUBLINGUAL PRN; +NITROGLYCERIN-D5W PMX 25 MG/250 ML BTL IV PRN; +PROTAMINE SULFATE 250 MG in EMPTY BAG 1 BAG IV PRN; +SODIUM CHLORIDE 0.9% 500 ML 500 ML INTRAARTER PRN; +TRANEXAMIC ACID 2,000 MG in SODIUM CHLORIDE 0.9% 80 ML IV PRN
[2024-12-07 10:26] LABS: Glucose,Whole Blood 166 mg/dL (70-110)
[2024-12-07] MEDS: IV FLUID CONTINUATION 1,000 ML IV ONE (10:29)
[2024-12-07] MEDS: ATORVASTATIN 10 MG TAB PO ONE (10:35)
[2024-12-07] MEDS: METOPROLOL TARTRATE 25 MG TAB PO ONE (10:36)
[2024-12-07] MEDS: CLOPIDOGREL 75 MG TAB PO ONE (10:36)
[2024-12-07] MEDS: ASPIRIN 325 MG TAB PO ONE (10:43)
[2024-12-07] MEDS ORDERED: PROTAMINE SULFATE 10 MG/ML 5 ML VIAL ONE (13:21)
[2024-12-07] MEDS ORDERED: GLYCOPYRROLATE 0.2 MG/ML 2 ML VIAL ONE (13:21)
[2024-12-07] MEDS ORDERED: HEPARIN SODIUM,PORCINE 10,000 UNIT/ML 1 ML VIAL ONE (13:21)
[2024-12-07] MEDS ORDERED: NEOSTIGMINE 1 MG/ML 10 ML VIAL ONE (13:21)
[2024-12-07] MEDS ORDERED: PHENYLEPHRINE 10 MG/ML VIAL ONE (13:21)
[2024-12-07] MEDS ORDERED: ROCURONIUM 10 MG/ML (5 ML VIAL) IV ONE (13:21)
[2024-12-07] MEDS ORDERED: PROPOFOL 10 MG/ML 20 ML VIAL IV ONE (13:21)
[2024-12-07] MEDS ORDERED: PHENYLEPHRINE-0.9% NACL SYG 1,000 MCG/10 ML SYRINGE ONE (13:21)
[2024-12-07] MEDS ORDERED: HEPARIN SODIUM,PORCINE 5,000 UNIT/ML 1 ML VIAL ONE (13:21)
[2024-12-07] MEDS ORDERED: MIDAZOLAM 2 MG/2 ML VIAL ONE (13:21)
[2024-12-07] MEDS ORDERED: fentaNYL (PF) 50 MCG/ML 2 ML AMP ONE (13:21)
[2024-12-07] MEDS ORDERED: SUCCINYLCHOLINE CHLORIDE 200 MG/10 ML VIAL IV ONE (13:21)
[2024-12-07] MEDS ORDERED: ePHEDrine 50 MG/ML 1 ML VIAL ONE (13:21)
[2024-12-07] MEDS ORDERED: LIDOCAINE 1% INJ 10MG/ML (20 ML MDV) ONE (13:21)
--- NOTE | 2024-12-07 14:06 | P.ANPRN ---
Procedure Note - Anesthesia - ELLA Intraop Pre Bypass ELLA Intraop - Anesthesia Indication: aortic stenosis Date of Procedure: 12/07/24 Pre-operative Diagnosis: AORTIC stenosis Post-operative Diagnosis: same Surgeon: Jeyson Sorto Ejection Fraction: Normal Regional Wall Motion Abnormalities: None Left Ventricle Hypertrophy: No R. Ventricle Function: Normal Anatomy: Trileaflet Aortic Stenosis: Severe Aortic Regurgitation: None Mitral Stenosis: None Mitral Regurgitation: Trace Tricuspid Stenosis: None Tricuspid Regurgitation: Trace Pulmonic Stenosis: None Pulmonic Regurgitation: None R. Atrial Dilation: No R. Atrial PFO: No L. Atrial Dilation: No Aortic Dissection: No Aortic Calcification: None Plural Effusion: None (pk 39/m25)
[2024-12-07] MEDS: IOPAMIDOL-370 100ML BTL INJ ONE (14:25)
[2024-12-07] MEDS ORDERED: Potassium Replacement Protocol 1 EACH MISC MISCELLANE PRN (14:51)
[2024-12-07] MEDS ORDERED: LORATADINE 10 MG TAB PO PRN (14:51)
[2024-12-07] MEDS ORDERED: FUROSEMIDE 20 MG TAB PO PRN (14:51)
[2024-12-07] MEDS ORDERED: NITROGLYCERIN SL TABS 0.4 MG TAB SUBLINGUAL PRN (14:51)
[2024-12-07] MEDS ORDERED: DEXTROSE 50% SYRINGE 50 ML IVP PRN ×2 (14:51)
[2024-12-07] MEDS ORDERED: Magnesium Replacement Protocol 1 EACH MISC MISCELLANE PRN (14:51)
--- NOTE | 2024-12-07 14:51 | P.OP ---
Date of Procedure: 12/07/24 Preoperative Diagnosis: Severe symptomatic aortic stenosis Postoperative Diagnosis: Severe symptomatic aortic stenosis Procedure(s) Performed: Placement of 23 mm Carey ERMELINDA 4 TAVR valve Implants: Carey 23 mm ERMELINDA 4 TAVR valve Anesthesia: JULIOA Surgeon: Jeyson Sorto Customer Support Analyst #1: Victor M Zarate Customer Support Analyst #2: Jorge Mae Estimated Blood Loss (ml): 25 Pathology: none sent Condition: stable Disposition: PACU Indications for Procedure: Severe aortic stenosis, symptomatic Operative Findings: Minimal to no paravalvular leak Maintenance of normal rhythm Excellent valve height Good diastolic pressure post implant Description of Procedure: After consent was obtained, the patient underwent general anesthetic and placement of a transesophageal echoprobe after being placed on the table in Layout Artist. The patient was prepped and draped in sterile fashion in supine position and we observed a timeout whereby the patient, the procedure, antibiotic del brianna, approach, valve size and personnel were all confirmed. Dr. Zarate then proceeded to access the bilateral femoral arteries with ultrasonic guidance as well as the left femoral vein for placement of a temporary pacemaker wire. A baseline ACT was performed and the pacemaker wire was inserted under direct vision of the fluoroscope and tested. It was found to have good capture. The diagnostic pigtail was placed in the right coronary sinus again under direct vision of the fluoroscope. The right sided access after being obtained was prepared for large access by placing 2 Perclose devices. Once those were in place we were able to place the large sheath and heparinized the patient. The [place] valve was then crossed with a wire and then a catheter and exchanged for a pigtail prior to inserting the safari wire. Once the valve was crossed the orientation of the TAVR valve was verified with skirt down and the valve was crimped. Once the safari wire was then placed the valve was brought onto the field and fed over the wire advancing it through the sheath and into the descending aorta. The balloon was then withdrawn into the valve and adjusted. A precurve was placed on the delivery device and it was advanced through the [place] aortic valve and positioned appropriately by verifying placement of the catheter in the bottom of the right coronary sinus. We had to adjust the pigtai l in the right coronary sinus slightly and reverify. We then positioned the valve and all were in agreement it was in good position. We then held respirations and paced the patient at 160 bpm. While paced, we slowly inflated the balloon to maximum and held it in place for 3 seconds prior to pulling negative on the balloon and coming off the pacemaker and going back on the ventilator. After evaluation with transesophageal echo there was trace to no evidence of paravalvular leak. The patient's rhythm was then evaluated and found to be the same as preop with no evidence of block. Dr. Zarate then finished by removing the pacemaker, the venous and arterial lines and sealing with the appropriate devices per his operative summary. The patient was then returned to PACU after extubation.
--- NOTE | 2024-12-07 14:53 | P.ANPRN ---
Procedure Note - Anesthesia - ELLA Intraop Post Bypass ELLA Intraop Post Bypass Procedure Performed: tavr Left Ventricle: unchanged Ejection Fraction: Normal Regional Wall Motion Abnormalities: None R. Ventricle Function: Normal Aortic Valve: artificial valve in the aortic position. residual mean pressure of 6, opens well. unidirectional Mitral Valve: Unchanged Tricuspid: Unchanged Pulmonic: Unchanged Aortic Dissection: No
--- NOTE | 2024-12-07 14:56 | P.PCN ---
Date of Procedure: 12/07/24 Operative Findings: Transcutaneous aortic valve replacement (TAVR) Performing physician Victor M Zarate MD, casting carrier Babs Mae DO, casting carrier Jeyson Sorto MD, cardiothoracic surgeon Procedure performed Successful TAVR using 23 mm Carey ERMELINDA valve Placement of transvenous temporary pacemaker Ultrasound-guided access of bilateral common femoral arteries Selective bilateral common femoral arteries angiogram Indication Symptomatic 79-year-old gentleman with severe aortic stenosis with NYHA class II symptoms. Approach Bilateral common femoral arteries and right common femoral vein Complication None Level of sedation The procedure was performed under general anesthesia Procedure description After obtaining informed consent the patient was brought to the cardiac Stone And Concrete Washer. The patient was prepped and draped in the usual sterile fashion. Subsequently the patient was sedated and she was then intubated and placed on mechanical ventilation. Subsequently the right common femoral artery was cannulated using micropuncture technique under ultrasound guidance a micropuncture wire passed easily then we will place a 6 [place] 55 cm sheath at the right common femoral artery. Subsequently the SideArm of the sheath was connected into a pressure transducer. Then after that I did advance a 5 [place] pigtail catheter which was placed in the noncoronary cusp of the aortic valve and the catheter was connected into an injection tubing. Subsequently the left common femoral vein was cannulated using micropuncture technique under ultrasound guidance a micropuncture wire passed easily then under fluoroscopy guidance a balloontipped temporary pacemaker was advanced to the right ventricle. The left common femoral artery was cannulated using micropuncture technique under ultrasound guidance a micropuncture wire passed easily then I placed a 6 [place] 55 cm sheath at the left common femoral artery where the SideArm of the sheath was connected into a pressure transducer and a 6 [place] pigtail catheter was inserted inside the sheath to the right coronary cusp. Subsequently the right common femoral artery was cannulated using micropuncture technique under ultrasound guidance a micropuncture wire passed easily then I placed a 6 [place] 11 cm sheath at the left common femoral artery. Subsequently we did place 2 Perclose devices at 10 and 2:00 and then we placed an 8 [place] 11 cm sheath after that over a 035 wire. Over a stiff safari wire we did exchange the 8 [place] sheath into a 14 [place] sheath. Subsequently the sheath was flushed. Anticoagulation at that point was initiated using heparin with continuous ACT monitoring. Subsequently we crossed the severely stenotic aortic valve using an AL-1 catheter with a straight wire then subsequently we did exchange the AL-1 into a pigtail catheter over a 035 wire. Simultaneous pressure gradient across aortic valve was performed and showed a mean gradient exceeding 40 mmHg. Predilatation was performed using 20 mm balloon because we had difficulties advancing the AL-1 over the safari wire. Subsequently a 23 cm Carey ERMELINDA valve was advanced under fluoroscopy guidance and the [address] [place] [address] the way to the descending aorta at the aortic arch then ascending aorta across aortic valve. The valve was deployed under rapid pacing successfully. Transesophageal echocardiogram was performed and showed trivial perivalvular leak. Subsequently good hemostasis was performed in both the right and left common femoral arteries using Angio-Seal on the left and Perclose plus Angio-Seal on the right. The procedure was completed with no complication Postprocedure management Monitor the heart rhythm in the intensive care unit Obtain an echocardiogram in the morning Follow-up with the patient
[2024-12-07 15:25] LABS: Glucose,Whole Blood 159 mg/dL (70-110)
[2024-12-07] MEDS: LACTATED RINGERS 1,000 ML IV SCH ×2 (15:43→22:17)
[2024-12-07 15:46] LABS: Basophils # (A) 0.05 10*3/uL (0.00-0.10); Basophils % (A) 0.6 %; Eosinophils # (A) 0.13 10*3/uL (0.04-0.35); Eosinophils % (A) 1.6 %; HCT 32.9 % (39.6-50.0); HGB 11.1 g/dL (13.0-17.0); Lymphocytes # (A) 1.62 10*3/uL (0.90-5.00); Lymphocytes % (A) 20.4 %; MCHC 33.7 g/dL (32.0-37.0); MCV 91.9 fL (80.0-97.0); Mean Platelet Volume 9.9 fL (9.5-12.2); Monocytes # (A) 0.81 10*3/uL (0.20-1.00); Monocytes % (A) 10.2 %; Neutrophils # (A) 5.28 10*3/uL (1.80-7.70); Neutrophils % (A) 66.6 %; Platelet Count 251 10*3/uL (140-440); RBC 3.58 10*6/uL (4.40-5.60); RDW 13.6 % (11.5-14.5); WBC 7.94 10*3/uL (4.50-10.00)
[2024-12-07 16:00] LABS: African American GFR (CKD) 69 (>60 ml/min/1.73 sqM); Anion Gap 10 mmol/L; Blood Urea Nitrogen 27 mg/dL (9-20); Calcium 8.7 mg/dL (8.4-10.2); Carbon Dioxide 21 mmol/L (22-30); Chloride 107 mmol/L (98-107); Glucose 168 mg/dL (74-99); Non-African American GFR(CKD) 60 (>60 ml/min/1.73 sqM); Potassium 4.1 mmol/L (3.5-5.1); Sodium 138 mmol/L (137-145)
--- NOTE | 2024-12-07 16:33 | XR ---
EXAMINATION TYPE: XR chest 1V portable DATE OF EXAM: 12/07/2024 4:18 PM COMPARISON: 07/05/2024 CLINICAL INDICATION: Male, 79 years old with history of Post Operative Cardiac Surgery, , FINDINGS: Heart mildly enlarged. Interval placement of endovascular aortic valve replacement. There is a right ventricular pacer lead with hazy femoral approach from the bottom. Diffuse interstitial and patchy op acities show slight worsening from 07/05/2024. No sizable pleural effusion on the frontal view. IMPRESSION: 1. Interval placement of endovascular aortic valve replacement. Right ventricular pacer lead from a f emoral approach. 2. Correlate for CHF with interstitial and patchy pulmonary edema. [facility], Workstation: [id number], 12/07/2024 4:31 PM
[2024-12-07 17:01] LABS: Glucose,Whole Blood 166 mg/dL (70-110)
[2024-12-07] MEDS: INSULIN LISPRO (HumaLOG) 100 UNIT/ML 10 mL VL SQ SCH ×2 (17:21→17:25)
[2024-12-07 19:54] LABS: Glucose,Whole Blood 149 mg/dL (70-110)
[2024-12-07] MEDS: INSULIN GLARGINE (LANTUS) 100 UNIT/ML SYR SQ SCH (20:39)
[2024-12-07] MEDS ORDERED: METOPROLOL TARTRATE 25 MG TAB PO SCH (21:00)
[2024-12-07] MEDS: ATORVASTATIN 40 MG TAB PO SCH (21:10)
[2024-12-07] MEDS: FUROSEMIDE 10 MG/ML 4 ML VIAL IV STA (21:10)
[2024-12-07] MEDS: SENNOSIDES-DOCUSATE SODIUM 1 EACH TAB PO SCH (21:10)
[2024-12-07] MEDS: ceFAZolin 2 GM in DEXTROSE 5% IN WATER 50 ML IVPB SCH (21:11)
[2024-12-07] MEDS: allopurinoL 100 MG TAB PO SCH (21:25)
[2024-12-07] MEDS: ceFAZolin 2 GM in DEXTROSE 5% IN WATER 50 ML IVPB ONE (22:17)
[2024-12-07] MEDS ORDERED: IBUPROFEN 400 MG TAB PO PRN (22:23)
[2024-12-07] MEDS: amLODIPine 5 MG TAB PO SCH (22:24)
[2024-12-07] MEDS: VALSARTAN 160 MG TAB PO SCH (22:31)
[2024-12-07] MEDS: ALPRAZolam 0.5 MG TAB PO PRN (22:31)
[2024-12-08] MEDS: IBUPROFEN 400 MG TAB PO PRN (02:56)
[2024-12-08 04:27] LABS: Basophils # (A) 0.06 10*3/uL (0.00-0.10); Basophils % (A) 0.4 %; HGB 11.5 g/dL (13.0-17.0); Lymphocytes # (A) 0.84 10*3/uL (0.90-5.00); Lymphocytes % (A) 5.4 %; MCH 31.7 pg (27.0-32.0); MCHC 34.8 g/dL (32.0-37.0); MCV 90.9 fL (80.0-97.0); Mean Platelet Volume 10.4 fL (9.5-12.2); Monocytes # (A) 1.06 10*3/uL (0.20-1.00); Monocytes % (A) 6.8 %; Neutrophils # (A) 13.59 10*3/uL (1.80-7.70); Platelet Count 249 10*3/uL (140-440); RBC 3.63 10*6/uL (4.40-5.60); RDW 13.6 % (11.5-14.5); WBC 15.61 10*3/uL (4.50-10.00)
[2024-12-08 04:48] LABS: ALT 21 U/L (4-49); AST 36 U/L (17-59); African American GFR (CKD) 60 (>60 ml/min/1.73 sqM); Albumin 3.3 g/dL (3.5-5.0); Alkaline Phosphatase 131 U/L (38-126); Anion Gap 12 mmol/L; Blood Urea Nitrogen 33 mg/dL (9-20); Carbon Dioxide 18 mmol/L (22-30); Chloride 104 mmol/L (98-107); Glucose 188 mg/dL (74-99); Magnesium 1.7 mg/dL (1.6-2.3); Non-African American GFR(CKD) 52 (>60 ml/min/1.73 sqM); Potassium 4.9 mmol/L (3.5-5.1); Sodium 134 mmol/L (137-145); Total Bilirubin 1.5 mg/dL (0.2-1.3); Total Protein 6.6 g/dL (6.3-8.2)
[2024-12-08 06:17] LABS: Glucose,Whole Blood 220 mg/dL (70-110)
[2024-12-08] MEDS: LEVOTHYROXINE 100 MCG TAB PO SCH (06:34)
--- NOTE | 2024-12-08 07:20 | XR ---
EXAMINATION TYPE: XR chest 1V portable DATE OF EXAM: 12/08/2024 5:26 AM COMPARISON: Chest radiograph from one day prior. CLINICAL INDICATION: Male, 79 years old with history of Post Operative Cardiac Surgery; [facility] TECHNIQUE: XR chest 1V portable Frontal view of the chest. FINDINGS: Lungs/Pleura: There is no evidence of pleural effusion, focal consolidation, or pneumothorax. Pulmonary vascularity: Pulmonary vascular congestion. Heart/mediastinum: Cardiomediastinal silhouette is unremarkable. Post aortic valve repair changes. Musculoskeletal: No acute osseous pathology. IMPRESSION: Multifocal airspace opacities concerning for pulmonary edema.. [facility], , 12/08/2024 7:17 AM
[2024-12-08] MEDS: AMIODARONE 100 MG TAB PO SCH (08:45)
[2024-12-08] MEDS: CLOPIDOGREL 75 MG TAB PO SCH (08:45)
[2024-12-08] MEDS: METOPROLOL TARTRATE 25 MG TAB PO SCH (08:45)
[2024-12-08] MEDS: PANTOPRAZOLE 40 MG TABLET PO SCH (08:46)
[2024-12-08] MEDS ORDERED: APIXABAN 5 MG TAB PO SCH (09:00)
[2024-12-08] MEDS ORDERED: ASPIRIN 81 MG PO SCH (09:00)
--- NOTE | 2024-12-08 11:05 | CA ---
Transthoracic Echo Report Name: Jeyson Bailey Age: 79 Gender: M : 1945 Exam Date: 12/08/2024 07:34 Exam Location: [facility] Ht (in): 72 Wt (lb): 237 Ordering Physician: Harmony Villafana Attending/Referring Phys: [id number], [facility] Rn Juany Ozuna, CHIKIS Procedure CPT: Indications: post TAVR Cardiac Hx: Technical Quality: Fair Contrast 1: Total Dose (mL): Contrast 2: Total Dose (mL): MEASUREMENTS (Male / Female) Normal Values 2D ECHO LV Diastolic Diameter PLAX 5.4 cm 4.2 - 5.9 / 3.9 - 5.3 cm LV Systolic Diameter PLAX 3.2 cm IVS Diastolic Thickness 1.1 cm 0.6 - 1.0 / 0.6 - 0.9 cm LVPW Diastolic Thickness 1.1 cm 0.6 - 1.0 / 0.6 - 0.9 cm LV Relative Wall Thickness 0.4 RV Internal Dim ED PLAX 3.2 cm LVOT Diameter 2.2 cm LA Systolic Diameter LX 4.4 cm 3.0 - 4.0 / 2.7 - 3.8 cm LV Diastolic Volume MOD BP 133.0 cm??? 67 - 155 / 56 - 104 cm??? LV Systolic Volume MOD BP 43.7 cm??? - 58 / 19 - 49 cm??? LV Ejection Fraction MOD BP 67.1 % >= 55 % LV Cardiac Index MOD BP 2716.9 cm???/min???m??? LV Diastolic Volume MOD 4C 140.5 cm??? LV Systolic Volume MOD 4C 38.6 cm??? LV Ejection Fraction MOD 4C 72.6 % LV Cardiac Index MOD 4C 3101.1 cm???/min???m??? LV Diastolic Length 4C 8.0 cm LV Systolic Length 4C 6.0 cm LV Diastolic Volume MOD 2C 124.5 cm??? LV Systolic Volume MOD 2C 50.3 cm??? LV Ejection Fraction MOD 2C 59.6 % LV Cardiac Index MOD 2C 2259.4 cm???/min???m??? LV Diastolic Length 2C 7.9 cm LV Systolic Length 2C 5.9 cm LA Volume 86.2 cm??? 18 - 58 / 22 - 52 cm??? LA Volume Index 36.4 cm???/m??? 16 - 28 cm???/m??? M-MODE Aortic Root Diameter MM 3.9 cm DOPPLER AV Peak Velocity 309.4 cm/s AV Peak Gradient 38.3 mmHg AV Mean Velocity 204.5 cm/s AV Mean Gradient 19.2 mmHg AV Velocity Time Integral 59.7 cm LVOT Peak Velocity 174.9 cm/s LVOT Peak Gradient 12.2 mmHg LVOT Velocity Time Integral 35.4 cm LVOT Stroke Volume 132.5 cm??? LVOT Stroke Volume Index 57.9 ml/m??? LVOT Cardiac Index 4031.2 cm???/min???m??? AV Area Cont Eq vti 2.2 cm??? AV Area Cont Eq pk 2.1 cm??? MV Peak Velocity 175.1 cm/s MV Peak Gradient 12.3 mmHg MV Mean Velocity 85.9 cm/s MV Mean Gradient 3.8 mmHg MV Velocity Time Integral 49.9 cm MV Area PHT 4.2 cm??? Mitral E Point Velocity 149.9 cm/s Mitral A Point Velocity 77.5 cm/s Mitral E to A Ratio 1.9 MV Deceleration Time 178.9 ms TR Peak Velocity 320.5 cm/s TR Peak Gradient 41.1 mmHg Right Ventricular Systolic Press 46.1 mmHg FINDINGS Left Ventricle Left ventricular ejection fraction is estimated at 60-65 %. Left ventricular cavity size normal. Mildly increased septal wall thickness. Normal left ventricular wall motion. Right Ventricle Normal right ventricular size. Moderate pulmonary hypertension. Right Atrium Normal right atrial size. No right atrial thrombus or mass seen. Left Atrium Mildly increased left atrial diameter. Moderately increased left atrial volume. Mildly increased left atrial area. Mitral Valve Mitral valve thickened. Mild mitral annular calcification. Mild mitral regurgitation. Mild gradient across MV Aortic Valve Normally functioning bioprosthetic aortic valve without stenosis with a peak velocity of 3.1 m/s, peak gradient 38 mmHg, mean 19 gradient mmHg, and estimated aortic valve area of 2.2 cm???. Trace aortic regurgitation. Mild paravalvular aortic regurgitation. Tricuspid Valve Structurally normal tricuspid valve. Mild tricuspid regurgitation. Pulmonic Valve Structurally normal pulmonic valve. Trace pulmonic regurgitation. Pericardium No pericardial effusion. Aorta Mild aortic dilatation at the level of the sinuses of valsalva 39 mm CONCLUSIONS Normal LV size and systolic function with mild concentric LVH. Enlarged left atrium. 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 Trace aortic insufficiency. Mitral annular calcification and mild mitral regurgitation. Prominent aortic root. Mild pulmonary hypertension Previewed by: Dr. Kaleb Olson MD (Electronically Signed) Final Date: 08 Dec 2024 11:04
[2024-12-08 11:19] LABS: Glucose,Whole Blood 158 mg/dL (70-110)
[2024-12-08] MEDS: MAG HYDROX/AL HYDROX/SIMETH 30 ML CUP PO PRN (12:34)
[2024-12-08] MEDS: ONDANSETRON 4 MG/2 ML VIAL IVP PRN (12:34)
[2024-12-08 13:20] VITALS: BMI 32.3
[2024-12-08] MEDS ORDERED: SODIUM BICARB 8.4% 50 ML SYR (1 MEQ/ML) ONE (13:28)
[2024-12-08] MEDS ORDERED: EPINEPHrine 10 ML SYRINGE (0.1 MG/ML) ONE (13:28)
--- NOTE | 2024-12-08 15:27 | P.PN ---
Subjective Progress Note Date: 12/08/24 Principal diagnosis: Symptomatic severe aortic stenosis, NYHA class II. History of coronary artery disease with previous single-vessel CABG in 1999, persistent atrial fibrillation with failed cardioversion on Eliquis for anticoagulation, hypertension, hyperlipidemia, insulin-dependent diabetes, hypothyroid, left internal carotid disease with stent placement in July 2024, previous TIA, previous tobacco dependence POD #1 transcatheter aortic valve replacement using 23 mm Carey ERMELINDA valve, placement of transvenous temporary pacemaker, ultrasound-guided access of bilat eral common femoral arteries, selective bilateral common femoral arteries angiogram The patient was seen and examined this morning with Dr. Zarate. Earlier this morning the patient was laying flat in bed as he still had a cranberry transvenous pacemaker wire present, was in sinus rhythm at the time and hemodynamically stable. Denied any chest pain or shortness of breath. Did require oxygen throughout the night, was given IV Lasix for volume overload on x-ray as well as hypoxia. Patient did have slow ooze from left femoral peripheral stick site which required multiple dressing changes. Patient did not need temporary pacing so temporary pacer wire was discontinued without incident. Otherwise patient was recovering well from TAVR procedure. Upon reevaluation patient was up in the chair with present, denied any symptomatology. Celestin catheter had been removed, patient still required 2 L nasal cannula. Echocardiogram findings were reviewed with Dr. Zarate. No other new concerns. Objective - Vital Signs Vital signs: Vital Signs Temp 98 F 12/08/24 12:00 Pulse 62 12/08/24 13:00 Resp 30 H 12/08/24 13:00 BP 124/48 12/08/24 13:00 Pulse Ox 93 L 12/08/24 13:00 FiO2 Intake & Output 12/07/24 12/08/24 12/08/24 18:59 06:59 18:59 Intake Total 550 1550 850 Output Total 1445 150 Balance 550 105 700 Weight 107.7 kg 108.2 kg 108.2 kg Intake: IV 550 440 210 0.9 KVO 290 210 Lactated Ringers 1,000 ml 150 120 @ 50 mls/hr IV .Q20H BERTO Rx#:[id number] pressure bag 30 Intake, IV Titration 50 Amount ceFAZolin 2 gm In 50 Dextrose 5% in Water 50 ml @ 100 mls/hr IVPB Q8H BETRO Rx#:[id number] Oral 1060 540 Tube Feeding 100 Output: Urine 1445 150 Other: Voiding Method External Catheter Indwelling Catheter Indwelling Catheter # Voids 1 1 ABP, PAP, CO, CI - Last Documented Arterial Blood Pressure 134/34 - Exam CONSTITUTIONAL: Appears comfortable, cooperative, no acute distress RESPIRATORY: Lungs sounds diminished bilaterally. Respirations even, nonlabored. Currently on 2LPM NC with oxygen saturation 94% CARDIOVASCULAR: S1, S2 present. Regular rate and rhythm, sinus rhythm on telemetry. Palpable peripheral pulses bilaterally. Bilateral lower extremity edema present GASTROINTESTINAL: Abdomen soft, nontender, nondistended. Active bowel sounds present 4 quadrants. Tolerating diet GENITOURINARY: Celestin removed, due to void INTEGUMENTARY: Skin is warm and dry NEUROLOGIC: Cranial nerves II through XII intact MUSKULOSKELETAL: Able to move all extremities, strength equal bilaterally, gait normal PSYCHIATRIC: Alert and oriented to person place and time, appropriate affect, intact judgment and insight - Allied health notes Allied health notes reviewed: nursing - Labs CBC & Chem 7: 12/08/24 04:15 12/08/24 04:15 Labs: Abnormal Lab Results - Last 24 Hours (Table) 12/07/24 12/07/24 12/07/24 Range/Units 15:23 15:40 15:40 WBC (4.50-10.00) 10*3/uL RBC 3.58 L (4.40-5.60) 10*6/uL Hgb 11.1 L (13.0-17.0) g/dL Hct 32.9 L (39.6-50.0) % Immature Gran # 0.05 H (0.00-0.04) 10*3/uL Neutrophils # (1.80-7.70) 10*3/uL Lymphocytes # (0.90-5.00) 10*3/uL Monocytes # (0.20-1.00) 10*3/uL Eosinophils # (0.04-0.35) 10*3/uL Sodium (137-145) mmol/L Carbon Dioxide 21 L (22-30) mmol/L BUN 27 H (9-20) mg/dL Creatinine (0.66-1.25) mg/dL Glucose 168 H (74-99) mg/dL POC Glucose (mg/dL) 159 H (70-110) mg/dL Total Bilirubin (0.2-1.3) mg/dL Alkaline Phosphatase (38-126) U/L Albumin (3.5-5.0) g/dL 12/07/24 12/07/24 12/08/24 Range/Units 16:59 19:52 04:15 WBC 15.61 H (4.50-10.00) 10*3/uL RBC 3.63 L (4.40-5.60) 10*6/uL Hgb 11.5 L (13.0-17.0) g/dL Hct 33.0 L (39.6-50.0) % Immature Gran # 0.06 H (0.00-0.04) 10*3/uL Neutrophils # 13.59 H (1.80-7.70) 10*3/uL Lymphocytes # 0.84 L (0.90-5.00) 10*3/uL Monocytes # 1.06 H (0.20-1.00) 10*3/uL Eosinophils # 0.00 L (0.04-0.35) 10*3/uL Sodium (137-145) mmol/L Carbon Dioxide (22-30) mmol/L BUN (9-20) mg/dL Creatinine (0.66-1.25) mg/dL Glucose (74-99) mg/dL POC Glucose (mg/dL) 166 H 149 H (70-110) mg/dL Total Bilirubin (0.2-1.3) mg/dL Alkaline Phosphatase (38-126) U/L Albumin (3.5-5.0) g/dL 12/08/24 12/08/24 12/08/24 Range/Units 04:15 06:16 11:18 WBC (4.50-10.00) 10*3/uL RBC (4.40-5.60) 10*6/uL Hgb (13.0-17.0) g/dL Hct (39.6-50.0) % Immature Gran # (0.00-0.04) 10*3/uL Neutrophils # (1.80-7.70) 10*3/uL Lymphocytes # (0.90-5.00) 10*3/uL Monocytes # (0.20-1.00) 10*3/uL Eosinophils # (0.04-0.35) 10*3/uL Sodium 134 L (137-145) mmol/L Carbon Dioxide 18 L (22-30) mmol/L BUN 33 H (9-20) mg/dL Creatinine 1.28 H (0.66-1.25) mg/dL Glucose 188 H (74-99) mg/dL POC Glucose (mg/dL) 220 H 158 H (70-110) mg/dL Total Bilirubin 1.5 H (0.2-1.3) mg/dL Alkaline Phosphatase 131 H (38-126) U/L Albumin 3.3 L (3.5-5.0) g/dL - Imaging and Cardiology Chest x-ray: report reviewed, image reviewed Assessment and Plan Assessment: Symptomatic severe aortic stenosis, NYHA class II, status post TAVR History of coronary artery disease with previous single-vessel CABG in 1999 Persistent atrial fibrillation with failed cardioversion on Eliquis for anticoagulation Hypertension Hyperlipidemia Insulin-dependent diabetes Hypothyroid Left internal carotid disease with stent placement in July 2024 Previous TIA Previous tobacco dependence Plan: Continue current medication regimen Wean oxygen as tolerated Increase activity as tolerated Aspirin discontinued, Brilinta changed to Plavix, will hold Eliquis for now due to oozing from groin Will keep patient for 1 more night to try to wean oxygen and increase activity Celestin catheter discontinued, may bladder scan and straight cath for greater than 300 mL residual GI/DVT prophylaxis Transfer orders placed for 3 S. cardiac stepdown unit, patient may transfer when bed available Likely will discharge to home tomorrow
[2024-12-08 16:17] LABS: Glucose,Whole Blood 287 mg/dL (70-110)
[2024-12-08 21:15] LABS: Glucose,Whole Blood 273 mg/dL (70-110)
[2024-12-08] MEDS: FUROSEMIDE 10 MG/ML 10 ML VIAL IV STA (21:51)
[2024-12-08 22:15] LABS: Glucose,Whole Blood 270 mg/dL (70-110)
--- NOTE | 2024-12-09 01:11 | P.CNPUL ---
History of Present Illness Consult date: 12/09/24 Requesting physician: Jeyson Sorto Reason for consult: other (Pulmonary edema) Chief complaint: Elective TAVR History of present illness: Patient is a 79-year-old male with past medical history significant for hypertension, hyperlipidemia diabetes mellitus, hypothyroidism,, coronary artery disease with previous CABG, CVA/TIA, carotid artery stenosis with previous left internal carotid artery stent atrial fibrillation with previous cardioversion, and severe aortic stenosis. Patient has been following on outpatient basis with Cardiology for his valvular heart disease. He was brought in on 12/07/2024 for elective TAVR procedure. He was initial in the ICU following his procedure, and set to the cardiac step down unit yesterday. Follow-up transthoracic echocardiogram showing normal LV systolic function. Aortic valve bioprosthesis noted with a mean gradient of 19 mmHg. Trace aortic insufficiency. Mild mitral regurgitation. Mild pulmonary hypertension. Labs from yesterday including a CBC with a WBC count of 15.6, hemoglobin 11.5, platelets 249. CMP: Sodium 134, potassium 4.9, chloride 104, serum bicarb 18, BUN 33, creatinine 1.28, glucose 188. LFTs unremarkable. Rapid response was called late last night, and a pulmonary consult was placed overnight for increased oxygen demand. Chest x-ray showing cardiomegaly with interstitial and patchy pulmonary edema. Patient was on a 15 L nonrebreather, reportedly his SpO2 was reading low at 83%. I recommend placing the patient on BiPAP. He did receive 80 mg of IV Lasix. Patient currently being evaluated in room 385 on the cardiac stepdown unit. He is on BiPAP with settings 10/5 and FiO2 70%. SpO2 is reading 100%. Does not appear to be any respiratory distress breathing. He sitting in high Fowlers position, breathing is not labored. Denies any chest pain. Denies any significant shortness of breath. Her rhythm appears atrial flutter 2-1, rate 65 bpm. Blood pressure is normotensive. TVP previously removed. Bilateral femoral access sites approximated no hematoma. Good distal perfusion. Review of Systems REVIEW OF SYSTEMS: CONSTITUTIONAL: Denies any recent significant weight loss or weight gain. EYES: Denies change in vision. EARS, NOSE, MOUTH, THROAT: Denies headaches, denies sore throat. CARDIOVASCULAR: Denies chest pain, palpitations or syncopal episodes. RESPIRATORY: See HPI GASTROINTESTINAL: Denies change in appetite, abdominal pain, nausea and vomiting, or diarrhea GENITOURINARY: Denies hematuria, denies infections. MUSKULOSKELETAL: Denies pain, denies swelling. INTEGUMENTARY: Denies rash, denies eczema. NEUROLOGICAL: Denies recent memory loss, no recent seizure activity. PSYCHIATRIC: Denies anxiety, denies depression. HEMATOLOGIC/LYMPHATIC: Denies anemia, denies enlarged lymph node Past Medical History Past Medical History: Atrial Fibrillation, Coronary Artery Disease (CAD), Diabetes Mellitus, GERD/Reflux, Hearing Disorder / Deafness, Hyperlipidemia, Hypertension, Osteoarthritis (OA), Thyroid Disorder Additional Past Medical History / Comment(s): aortic valve stenosis, Continued SOB and dizziness, right hearing aid use, SITKA left ear. History of Any Multi-Drug Resistant Organisms: None Reported Past Surgical History: Appendectomy, Coronary Bypass/CABG, Heart Catheterization With Stent Additional Past Surgical History / Comment(s): 3 cardiac stents, CABG 1999, "tendon cut in right foot", left carotid stent 08/03/24, cardioversion. Past Anesthesia/Blood Transfusion Reactions: No Reported Reaction Additional Past Anesthesia/Blood Transfusion Reaction / Comment(s): No blood transfusions. Date of Last Stent Placement:: 08/03/24 Smoking Status: Former smoker - Past Family History Mother Family Medical History: No Reported History Father Additional Family Medical History / Comment(s): CABG. Medications and Allergies Home Medications Medication Instructions Recorded Confirmed Type Atorvastatin [Lipitor] 40 mg PO HS 11/13/15 12/07/24 History Levothyroxine Sodium [Synthroid] 200 mcg PO MOTUWETHFRSA 11/13/15 12/07/24 History Omeprazole 20 mg PO QAM 11/10/17 12/07/24 History Furosemide [Lasix] 20 mg PO DAILY PRN 10/28/22 12/01/24 History Cetirizine HCl [Zyrtec] 10 mg PO DAILY PRN 07/05/24 12/01/24 History Insulin Glargine,Hum.rec.anlog 20 unit SQ HS 07/05/24 12/07/24 History [Basaglar Kwikpen U-100] Insulin Lispro [humaLOG Kwikpen] 15 unit SQ AC-TID 07/05/24 12/07/24 History Levothyroxine Sodium [Synthroid] 300 mcg PO GONZALEZ 07/05/24 12/07/24 History Nitroglycerin Sl Tabs [Nitrostat] 0.4 mg SUBLINGUAL Q5M PRN 07/05/24 12/01/24 History allopurinoL [Zyloprim] 100 mg PO HS 07/05/24 12/07/24 History Ticagrelor [Brilinta] 90 mg PO BID #60 tab 07/12/24 12/07/24 Rx Aspirin [Adult Low Dose Aspirin EC] 81 mg PO QAM 07/29/24 12/07/24 History Valsartan 160 mg PO BID 07/29/24 12/07/24 History Metoprolol Tartrate 25 mg PO BID 10/06/24 12/07/24 History amLODIPine [Norvasc] 5 mg PO BID 10/06/24 12/07/24 History Amiodarone [Cordarone] 100 mg PO QAM 10/28/24 12/07/24 History Apixaban [Eliquis] 5 mg PO BID 12/01/24 12/07/24 History Allergies Allergy/AdvReac Type Severity Reaction Status Date / Time No Known Allergies Allergy Verified 12/01/24 09:54 Physical Exam Vitals: Vital Signs Temp Pulse Pulse Resp BP BP Pulse Ox 12/08/24 23:06 12/08/24 22:23 12/08/24 20:16 90 L 12/08/24 15:38 98 F 65 19 102/45 94 L 12/08/24 13:00 62 30 H 124/48 93 L 12/08/24 12:30 73 16 111/42 94 L 12/08/24 12:00 98 F 61 20 116/38 95 12/08/24 11:30 77 21 110/60 93 L 12/08/24 11:00 80 20 110/46 90 L 12/08/24 10:30 64 24 116/54 89 L 12/08/24 10:00 64 24 113/36 92 L 12/08/24 09:30 63 29 H 107/36 91 L 12/08/24 09:00 62 23 115/49 92 L 12/08/24 08:30 68 26 H 125/50 93 L 12/08/24 08:00 97.7 F 76 16 128/44 93 L 12/08/24 07:30 73 26 H 128/56 93 L 12/08/24 07:00 71 29 H 128/46 93 L 12/08/24 06:30 64 28 H 134/48 90 L 12/08/24 06:00 76 20 132/46 92 L 12/08/24 05:30 75 24 129/49 94 L 12/08/24 05:00 79 16 128/45 94 L 12/08/24 04:30 70 21 119/47 91 L 12/08/24 04:00 69 20 121/44 95 12/08/24 03:30 66 19 127/51 93 L 12/08/24 03:00 79 26 H 125/50 92 L 12/08/24 02:30 73 28 H 125/45 91 L 12/08/24 02:00 65 22 123/59 94 L 12/08/24 01:30 74 24 119/46 92 L 12/08/24 01:00 97.8 F 66 23 125/48 94 L 12/08/24 00:30 64 28 H 121/48 93 L FiO2 12/08/24 23:06 75 12/08/24 22:23 100 12/08/24 20:16 12/08/24 15:38 12/08/24 13:00 12/08/24 12:30 12/08/24 12:00 12/08/24 11:30 12/08/24 11:00 12/08/24 10:30 12/08/24 10:00 12/08/24 09:30 12/08/24 09:00 12/08/24 08:30 12/08/24 08:00 12/08/24 07:30 12/08/24 07:00 12/08/24 06:30 12/08/24 06:00 12/08/24 05:30 12/08/24 05:00 12/08/24 04:30 12/08/24 04:00 12/08/24 03:30 12/08/24 03:00 12/08/24 02:30 12/08/24 02:00 12/08/24 01:30 12/08/24 01:00 12/08/24 00:30 Intake and Output 12/08/24 12/08/24 12/09/24 14:59 22:59 06:59 Intake Total 850 Output Total 150 Balance 700 Intake: IV 210 0.9 KVO 210 Oral 540 Tube Feeding 100 Output: Urine 150 Other: Voiding Method Indwelling Catheter # Voids 1 Weight 108.2 kg GENERAL EXAM: Alert 79-year-old male, on BiPAP, fairly comfortable in no apparent distress. HEAD: Normocephalic and atraumatic EYES: Normal reaction of pupils, equal size. NOSE: Clear with pink turbinates. THROAT: No erythema or exudates. NECK: No masses, no JVD. CHEST: No chest wall deformity. LUNGS: Equal air entry with bibasilar crackles. On BiPAP with settings 10/5 and FiO2 set at 70%. SpO2 is reading 100% on monitor. We are weaning FiO2. Nontachypneic, no accessory muscle use. CVS: S1 and S2 normal with no audible murmur, regular rhythm. No extra heart sounds ABDOMEN: No hepatosplenomegaly, active bowel sounds, no guarding or rigidity. SPINE: No scoliosis or deformity SKIN: No rashes CENTRAL NERVOUS SYSTEM: No focal deficits, tone is normal in all 4 extremities. EXTREMITIES: There is mild bipedal edema. No clubbing or cyanosis. Peripheral pulses are intact. Bilateral femoral access sites approximated. No oozing. No hematoma. Results - Laboratory Findings CBC and BMP: 12/09/24 02:54 12/09/24 02:54 Abnormal lab findings: Abnormal Labs 12/07/24 12/07/24 12/07/24 10:20 15:23 15:40 WBC RBC Hgb Hct Immature Gran # Neutrophils # Lymphocytes # Monocytes # Eosinophils # Sodium Carbon Dioxide 21 L BUN 27 H Creatinine Glucose 168 H POC Glucose (mg/dL) 166 H 159 H Total Bilirubin Alkaline Phosphatase Albumin 12/07/24 12/07/24 12/07/24 15:40 16:59 19:52 WBC RBC 3.58 L Hgb 11.1 L Hct 32.9 L Immature Gran # 0.05 H Neutrophils # Lymphocytes # Monocytes # Eosinophils # Sodium Carbon Dioxide BUN Creatinine Glucose POC Glucose (mg/dL) 166 H 149 H Total Bilirubin Alkaline Phosphatase Albumin 12/08/24 12/08/24 12/08/24 04:15 04:15 06:16 WBC 15.61 H RBC 3.63 L Hgb 11.5 L Hct 33.0 L Immature Gran # 0.06 H Neutrophils # 13.59 H Lymphocytes # 0.84 L Monocytes # 1.06 H Eosinophils # 0.00 L Sodium 134 L Carbon Dioxide 18 L BUN 33 H Creatinine 1.28 H Glucose 188 H POC Glucose (mg/dL) 220 H Total Bilirubin 1.5 H Alkaline Phosphatase 131 H Albumin 3.3 L 12/08/24 12/08/24 12/08/24 11:18 16:16 21:14 WBC RBC Hgb Hct Immature Gran # Neutrophils # Lymphocytes # Monocytes # Eosinophils # Sodium Carbon Dioxide BUN Creatinine Glucose POC Glucose (mg/dL) 158 H 287 H 273 H Total Bilirubin Alkaline Phosphatase Albumin 12/08/24 22:14 WBC RBC Hgb Hct Immature Gran # Neutrophils # Lymphocytes # Monocytes # Eosinophils # Sodium Carbon Dioxide BUN Creatinine Glucose POC Glucose (mg/dL) 270 H Total Bilirubin Alkaline Phosphatase Albumin - Diagnostic Findings Chest x-ray: image reviewed Assessment and Plan Assessment: Severe aortic stenosis status postoperative day #2 following placement of Carey 23 mm sapient 4 TAVR valve, Follow-up transthoracic echocardiogram showing normal LV systolic function. Aortic valve bioprosthesis noted with a mean gradient of 19 mmHg. Trace aortic insufficiency. Mild mitral regurgitation. Mild pulmonary hypertension. Acute hypoxemic respiratory failure, on BiPAP, secondary to acute pulmonary edema Acute kidney injury creatinine to 1.28 Leukocytosis, likely reactive to surgery Coronary artery disease with previous CABG with MONTGOMERY to the LAD and subsequent PCI/stents to the RCA History of CVA/TIA History of carotid artery stenosis with previous left internal carotid artery stent Persistent atrial fibrillation/atrial flutter and previous cardioversion, currently atrial flutter 2:1, restart Eliquis per cardiology recommendation Hypertension History of hyperlipidemia Diabetes mellitus, insulin-dependent History of hypothyroidism Obesity, with a BMI of 32.4 kg/m Plan: Patient's medications, labs, imaging reviewed Rapid response called late last night as the patient had increased oxygen demands. He did receive 80 mg of IV push Lasix stat. Also, I recommended patient be placed on BiPAP. Follow-up chest x-ray done during the rapid response showing diffuse infiltrates consistent with pulmonary edema. No notable pleural effusions, pneumothoraces. Continue on BiPAP with current settings 10/5 and FiO2 to be weaned as tolerated. Did receive 80 mg of IV push Lasix Monitor I's and O's We will continue to monitor, transfer to the ICU if worsening oxygen demands. I have personally seen and examined the patient, performed the documentation and the assessment and plan as written. Number of minutes spent on the visit:20 This is a joint evaluation for the nurse practitioner. This is a patient was done more than 1 hour. The patient was evaluated this morning. The patient is post TAVR and he developed an acute hypoxic respiratory failure with diffuse bilateral pulmonary infiltrates over the past 12 hours. As such, the patient got transferred to the intensive care unit with ongoing hypoxemia. He was placed on BiPAP initiated pressure of 10 over 5 cm of water and subsequently the BiPAP pressures were moved up to 14/8 with an FiO2 of 100%. The patient continued to be hypoxic with a pulse ox of 85%. He continued to be tachypneic with an increased respiratory rate. He also developed an acute kidney injury. Urine output was suboptimal despite being diuresed with IV Lasix. Discussed the case with cardiology. Proceed with intubation. The patient was intubated in the intensive care unit and placed on the mechanical ventilator. At this point in time, the patient is sedated on the mechanical ventilation at rate of 28, tidal volume 400, PEEP is 18 with an FiO2 of 100%. Postintubation chest x-ray shows bilateral pulmonary filtrates right more than left. Noted postintubation, the patient has frothy bloody secretions suctioned from the orotracheal tube. As such, the findings are highly suspicious for a cardiogenic pulmonary edema. As for the postintubation hypotension, a triple-lumen catheter was inserted and the patient was started on norepinephrine which is currently running at 0.15 mcg/kg/min. Arterial line was inserted. A triple-lumen catheter was also inserted. Discussed the case with cardiology. The patient will undergo a right heart cath to evaluate PA pressures and filling pressures. The patient will have also a limited echocardiogram to reevaluate LV function, valve function and rule out any pericardial the cardiac rhythm is sinus and the patient is in a bundle branch block pattern on the left. He also has a first-degree AV block. Blood work from today shows a white cell count of 19.2, hemoglobin 11.1 and a platelet count of 191. BUN is 47 with a creatinine of 1.9. Blood sugar is 213. Will start the patient empirically on IV Zosyn. Will obtain sputum Gram stain and culture. Further recommendations are to follow. Condition is obviously critical. Will collaborate care with cardiology and cardiothoracic surgery. Time with Patient: Greater than 30
[2024-12-09 02:20] LABS: Glucose,Whole Blood 204 mg/dL (70-110)
[2024-12-09 02:31] LABS: ABG Base Excess -3.9 mmol/L; ABG HCO3 21 mmol/L (21-25); ABG Oxygen Saturation 93.6 % (94-97); ABG PCO2 39 mmHg (35-45); ABG PH 7.35 (7.35-7.45); ABG PO2 73 mmHg (83-108); ABG TCO2 23 mmol/L (19-24); Allen Test Performed? Yes
[2024-12-09] MEDS ORDERED: NALOXONE 0.4 MG/ML 1 ML VIAL IV PRN (02:36)
[2024-12-09] MEDS: FUROSEMIDE 10 MG/ML 4 ML VIAL IV STA (02:47)
[2024-12-09 03:53] LABS: ALT 13 U/L (4-49); AST 41 U/L (17-59); African American GFR (CKD) 37 (>60 ml/min/1.73 sqM); Albumin 3.1 g/dL (3.5-5.0); Alkaline Phosphatase 120 U/L (38-126); Anion Gap 10 mmol/L; Blood Urea Nitrogen 47 mg/dL (9-20); Calcium 8.6 mg/dL (8.4-10.2); Carbon Dioxide 19 mmol/L (22-30); Chloride 101 mmol/L (98-107); Glucose 205 mg/dL (74-99); Non-African American GFR(CKD) 32 (>60 ml/min/1.73 sqM); Potassium 4.8 mmol/L (3.5-5.1); Sodium 130 mmol/L (137-145); Total Bilirubin 1.2 mg/dL (0.2-1.3); Total Protein 6.2 g/dL (6.3-8.2)
--- NOTE | 2024-12-09 03:58 | XR ---
EXAM: XR Chest, 1 View CLINICAL HISTORY: Respiratory distress; recent TAVR; pulmonary edema TECHNIQUE: Frontal view of the chest. COMPARISON: Chest radiograph 12/08/2024 FINDINGS: Lungs: Stable bilateral airspace opacities. Pleural space: Stable trace left pleural effusion. No pneumothorax. Heart: Stable cardiac silhouette. Mediastinum: Unremarkable. Normal mediastinal contour. Bones/joints: There are degenerative changes of the spine. No acute fracture. IMPRESSION: Stable chest radiograph.
[2024-12-09 04:01] LABS: NT-Pro-B-Type Natriuretic Pept 3440 pg/mL
[2024-12-09 04:10] LABS: Basophils # (A) 0.06 10*3/uL (0.00-0.10); Basophils % (A) 0.3 %; Eosinophils # (A) 0.04 10*3/uL (0.04-0.35); Eosinophils % (A) 0.2 %; HCT 32.2 % (39.6-50.0); HGB 11.1 g/dL (13.0-17.0); Lymphocytes # (A) 1.27 10*3/uL (0.90-5.00); Lymphocytes % (A) 6.6 %; MCH 31.1 pg (27.0-32.0); MCHC 34.5 g/dL (32.0-37.0); MCV 90.2 fL (80.0-97.0); Mean Platelet Volume 10.6 fL (9.5-12.2); Monocytes # (A) 1.29 10*3/uL (0.20-1.00); Monocytes % (A) 6.7 %; Neutrophils # (A) 16.45 10*3/uL (1.80-7.70); Neutrophils % (A) 85.5 %; Platelet Count 191 10*3/uL (140-440); RBC 3.57 10*6/uL (4.40-5.60); RDW 13.7 % (11.5-14.5); WBC 19.25 10*3/uL (4.50-10.00)
[2024-12-09 06:20] LABS: Glucose,Whole Blood 213 mg/dL (70-110)
--- NOTE | 2024-12-09 07:35 | P.PN ---
Subjective Progress Note Date: 12/09/24 Principal diagnosis: Symptomatic severe aortic stenosis, NYHA class II. History of coronary artery disease with previous single-vessel CABG in 1999, persistent atrial fibrillation with failed cardioversion on Eliquis for anticoagulation, hypertension, hyperlipidemia, insulin-dependent diabetes, hypothyroid, left internal carotid disease with stent placement in July 2024, previous TIA, previous tobacco dependence POD #2 transcatheter aortic valve replacement using 23 mm Carey ERMELINDA valve, placement of transvenous temporary pacemaker, ultrasound-guided access of bilat eral common femoral arteries, selective bilateral common femoral arteries angiogram The patient was seen and examined this morning lying in bed in the intensive care unit. He was transferred out to 3 . yesterday with anticipation of discharge today after TAVR on Thursday. Unfortunately patient went into respiratory failure, acute heart failure versus acute respiratory illness. He was transferred back to the intensive care unit and placed on BiPAP. ABGs were drawn, lactic acid was normal, BNP was 3440. He was given 80 mg of IV Lasix last night by cardiology and 40 mg of IV Lasix this morning by pulmonology with minimal output. WBC elevated to 19 from 15 yesterday, patient has remained afebrile, creatinine elevated to 1.91 from 1.28 yesterday. Remains in a flutter with controlled heart rate, blood pressure stable. Discussed the case in detail with Dr. Zarate who may perform right heart catheterization to evaluate volume status. Appreciate recommendations from pulmonology. Patient denies any pain at this time. was updated by RN this morning. Objective - Vital Signs Vital signs: Vital Signs Temp 98.1 F 12/09/24 04:00 Pulse 77 12/09/24 07:00 Resp 37 H 12/09/24 07:00 BP 100/49 12/09/24 07:00 Pulse Ox 89 L 12/09/24 07:00 FiO2 100 12/09/24 04:00 Intake & Output 12/08/24 12/09/24 12/09/24 18:59 06:59 18:59 Intake Total 850 Output Total 150 325 30 Balance 700 -325 -30 Weight 108.2 kg 110.5 kg Intake: IV 210 0.9 KVO 210 Oral 540 Tube Feeding 100 Output: Urine 150 325 30 Other: Voiding Method Indwelling Catheter Indwelling Catheter # Voids 1 ABP, PAP, CO, CI - Last Documented Arterial Blood Pressure 134/34 - Exam CONSTITUTIONAL: Appears somewhat comfortable, cooperative RESPIRATORY: Lungs sounds coarse bilaterally. Respirations tachypneic. Currently on BiPAP, FiO2 100%, IPAP 14, EPAP 8. Strong cough. CARDIOVASCULAR: S1, S2 present. Regular rate and rhythm, controlled atrial flutter on telemetry. Sternum stable. Palpable peripheral pulses bilaterally. Generalized edema present. No calf pain or tenderness noted GASTROINTESTINAL: Abdomen soft, nontender, nondistended. Active bowel sounds present 4 quadrants. Tolerating diet GENITOURINARY: Celestin present draining clear, yellow urine. Output overnight 20-30 mL per hour with 225 mL diuresis after the first dose of Lasix INTEGUMENTARY: Skin is warm and dry, bilateral groin sites soft, left groin slightly tender NEUROLOGIC: Cranial nerves II through XII intact MUSKULOSKELETAL: Able to move all extremities, strength equal bilaterally PSYCHIATRIC: Alert and oriented to person place and time, appropriate affect, intact judgment and insight - Allied health notes Allied health notes reviewed: nursing - Labs CBC & Chem 7: 12/09/24 02:54 12/09/24 02:54 Labs: Abnormal Lab Results - Last 24 Hours (Table) 12/08/24 12/08/24 12/08/24 Range/Units 11:18 16:16 21:14 WBC (4.50-10.00) 10*3/uL RBC (4.40-5.60) 10*6/uL Hgb (13.0-17.0) g/dL Hct (39.6-50.0) % Immature Gran # (0.00-0.04) 10*3/uL Neutrophils # (1.80-7.70) 10*3/uL Monocytes # (0.20-1.00) 10*3/uL ABG pO2 (83-108) mmHg ABG O2 Saturation (94-97) % Hemoglobin (13.0-17.5) gm/dL Sodium (137-145) mmol/L Carbon Dioxide (22-30) mmol/L BUN (9-20) mg/dL Creatinine (0.66-1.25) mg/dL Glucose (74-99) mg/dL POC Glucose (mg/dL) 158 H 287 H 273 H (70-110) mg/dL Total Protein (6.3-8.2) g/dL Albumin (3.5-5.0) g/dL 12/08/24 12/09/24 12/09/24 Range/Units 22:14 02:18 02:30 WBC (4.50-10.00) 10*3/uL RBC (4.40-5.60) 10*6/uL Hgb (13.0-17.0) g/dL Hct (39.6-50.0) % Immature Gran # (0.00-0.04) 10*3/uL Neutrophils # (1.80-7.70) 10*3/uL Monocytes # (0.20-1.00) 10*3/uL ABG pO2 73 L (83-108) mmHg ABG O2 Saturation 93.6 L (94-97) % Hemoglobin 11.6 L (13.0-17.5) gm/dL Sodium (137-145) mmol/L Carbon Dioxide (22-30) mmol/L BUN (9-20) mg/dL Creatinine (0.66-1.25) mg/dL Glucose (74-99) mg/dL POC Glucose (mg/dL) 270 H 204 H (70-110) mg/dL Total Protein (6.3-8.2) g/dL Albumin (3.5-5.0) g/dL 12/09/24 12/09/24 12/09/24 Range/Units 02:54 02:54 06:19 WBC 19.25 H (4.50-10.00) 10*3/uL RBC 3.57 L (4.40-5.60) 10*6/uL Hgb 11.1 L (13.0-17.0) g/dL Hct 32.2 L (39.6-50.0) % Immature Gran # 0.14 H (0.00-0.04) 10*3/uL Neutrophils # 16.45 H (1.80-7.70) 10*3/uL Monocytes # 1.29 H (0.20-1.00) 10*3/uL ABG pO2 (83-108) mmHg ABG O2 Saturation (94-97) % Hemoglobin (13.0-17.5) gm/dL Sodium 130 L (137-145) mmol/L Carbon Dioxide 19 L (22-30) mmol/L BUN 47 H (9-20) mg/dL Creatinine 1.91 H (0.66-1.25) mg/dL Glucose 205 H (74-99) mg/dL POC Glucose (mg/dL) 213 H (70-110) mg/dL Total Protein 6.2 L (6.3-8.2) g/dL Albumin 3.1 L (3.5-5.0) g/dL - Imaging and Cardiology Chest x-ray: report reviewed, image reviewed Assessment and Plan Assessment: Symptomatic severe aortic stenosis, NYHA class II, status post TAVR Acute respiratory failure requiring BiPAP, acute heart failure versus infectious process Acute leukocytosis, remains afebrile Acute renal insufficiency History of coronary artery disease with previous single-vessel CABG in 1999 Persistent atrial fibrillation with failed cardioversion on Eliquis for anticoagulation Hypertension Hyperlipidemia Insulin-dependent diabetes Hypothyroid Left internal carotid disease with stent placement in July 2024 Previous TIA Previous tobacco dependence Plan: Continue to maximize medical therapy with Plavix, beta-ciera. Eliquis on hold due to oozing from left groin yesterday morning Wean oxygen as tolerated, BiPAP management per pulmonology Continue Celestin catheter for strict accurate intake and output GI/DVT prophylaxis Appreciate pulmonology recommendations regarding possible infectious process Echocardiogram ordered for this morning Dr. Zarate may perform right heart catheterization to evaluate volume status Will transfer service to medicine with cardiology on consult More recommendations to follow
[2024-12-09] MEDS: CISATRACURIUM 2 MG/ML 5 ML VIAL IV ONE ×2 (08:27→10:04)
[2024-12-09] MEDS: NOREPINEPHRINE 4 MG in SODIUM CHLORIDE 0.9% 250 ML IV SCH (08:27)
--- NOTE | 2024-12-09 09:12 | XR ---
EXAMINATION TYPE: XR chest 1V portable DATE OF EXAM: 12/09/2024 9:02 AM COMPARISON: Chest radiographs from 12/08/2024 CLINICAL INDICATION: Male, 79 years old with history of Tube placement; MERGED WITH [facility] TECHNIQUE: XR chest 1V portable Frontal view of the chest. FINDINGS: Lungs/Pleura: Worsening multifocal airspace opacities. No evidence of pneumothorax or pleural effusio n. Pulmonary vascularity: Unremarkable. Heart/mediastinum: Cardiomediastinal silhouette is unremarkable. Musculoskeletal: No acute osseous pathology. Other findings: None Lines/Tubes: Endotracheal tube with distal tip 7.2 cm above the cassie. Nasogastric tube with its distal tip and side-port projecting under the diaphragm. IMPRESSION: Worsening airspace opacities correlate for pneumonia. [facility], , 12/09/2024 9:10 AM
[2024-12-09 09:24] LABS: ABG Base Excess -5.7 mmol/L; ABG HCO3 23 mmol/L (21-25); ABG Oxygen Saturation 99.2 % (94-97); ABG PCO2 56 mmHg (35-45); ABG PH 7.22 (7.35-7.45); ABG PO2 180 mmHg (83-108); ABG TCO2 24 mmol/L (19-24)
[2024-12-09 09:43] VITALS: TEMP 99.1
[2024-12-09] MEDS: CISATRACURIUM 200 MG in SODIUM CHLORIDE 0.9% 180 ML IV SCH (10:09)
[2024-12-09] MEDS: VASOPRESSIN 60 UNIT in SODIUM CHLORIDE 0.9% 150 ML IV SCH (10:14)
[2024-12-09] MEDS: FUROSEMIDE 10 MG/ML 4 ML VIAL IV SCH (10:28)
[2024-12-09] MEDS: CHLORHEXIDINE GLUCONATE 15 ML CUP MUCOUS MEM SCH (10:28)
[2024-12-09] MEDS: ARTIFICIAL TEARS-HYPROMELLOSE DROPS 15 ML BTL BOTH EYES SCH (10:29)
[2024-12-09] MEDS ORDERED: PIPERACILLIN-TAZOBACTAM 3.375 GM in SODIUM CHLORIDE 0.9% 100 ML IVPB ONE (10:30)
[2024-12-09] MEDS: IPRATROPIUM-ALBUTEROL 3 ML NEB INHALATION PRN (10:50)
--- NOTE | 2024-12-09 10:50 | P.NPCON ---
History of Present Illness - Reason for Consult acute renal failure - History of Present Illness Patient is an 79-year-old male with history of hypertension coronary artery disease status post CABG, CVA who came into the hospital for elective TAVR procedure which was done on 12/07/2024. Following the procedure patient was noted to be mildly short of breath and he progressively worsened. Patient did receive IV Lasix. He diuresed initially but subsequently urine outpuT has decreased. Normal LV function noted on echocardiogram. Patient was intubated earlier today as there are plans to proceed with right heart catheterization this morning. Chest x-ray showed bilateral airspace opacities and pulmonary vascular congestion. There is also concern for pneumonia as white cell count has progressively increased to 19 from 7. Currently maintained on antibiotics. FiO2 is 80% Urine output 20 cc for last 2 hours Blood pressure is now on the lower side after intubation. No significant hypotension noted prior to that. Serum creatinine was 1.1 on admission and increased to 1.9 today. I do see Motrin and Diovan on med list which are both now discontinued. Past Medical History Past Medical History: Atrial Fibrillation, Coronary Artery Disease (CAD), Diabetes Mellitus, GERD/Reflux, Hearing Disorder / Deafness, Hyperlipidemia, Hypertension, Osteoarthritis (OA), Thyroid Disorder Additional Past Medical History / Comment(s): aortic valve stenosis, Continued SOB and dizziness, right hearing aid use, KALTAG left ear. History of Any Multi-Drug Resistant Organisms: None Reported Past Surgical History: Appendectomy, Coronary Bypass/CABG, Heart Catheterization With Stent Additional Past Surgical History / Comment(s): 3 cardiac stents, CABG 1999, "tendon cut in right foot", left carotid stent 08/03/24, cardioversion. Past Anesthesia/Blood Transfusion Reactions: No Reported Reaction Additional Past Anesthesia/Blood Transfusion Reaction / Comment(s): No blood transfusions. Date of Last Stent Placement:: 08/03/24 Smoking Status: Former smoker - Past Family History Mother Family Medical History: No Reported History Father Additional Family Medical History / Comment(s): CABG. Medications and Allergies Home Medications Medication Instructions Recorded Confirmed Type Atorvastatin [Lipitor] 40 mg PO HS 11/13/15 12/07/24 History Levothyroxine Sodium [Synthroid] 200 mcg PO [id number] 11/13/15 12/07/24 History Omeprazole 20 mg PO QAM 11/10/17 12/07/24 History Furosemide [Lasix] 20 mg PO DAILY PRN 10/28/22 12/01/24 History Cetirizine HCl [Zyrtec] 10 mg PO DAILY PRN 07/05/24 12/01/24 History Insulin Glargine,Hum.rec.anlog 20 unit SQ HS 07/05/24 12/07/24 History [Basaglar Kwikpen U-100] Insulin Lispro [humaLOG Kwikpen] 15 unit SQ AC-TID 07/05/24 12/07/24 History Levothyroxine Sodium [Synthroid] 300 mcg PO GONZALEZ 07/05/24 12/07/24 History Nitroglycerin Sl Tabs [Nitrostat] 0.4 mg SUBLINGUAL Q5M PRN 07/05/24 12/01/24 History allopurinoL [Zyloprim] 100 mg PO HS 07/05/24 12/07/24 History Ticagrelor [Brilinta] 90 mg PO BID #60 tab 07/12/24 12/07/24 Rx Aspirin [Adult Low Dose Aspirin EC] 81 mg PO QAM 07/29/24 12/07/24 History Valsartan 160 mg PO BID 07/29/24 12/07/24 History Metoprolol Tartrate 25 mg PO BID 10/06/24 12/07/24 History amLODIPine [Norvasc] 5 mg PO BID 10/06/24 12/07/24 History Amiodarone [Cordarone] 100 mg PO QAM 10/28/24 12/07/24 History Apixaban [Eliquis] 5 mg PO BID 12/01/24 12/07/24 History Allergies Allergy/AdvReac Type Severity Reaction Status Date / Time No Known Allergies Allergy Verified 12/01/24 09:54 Physical Exam Vitals: Vital Signs Temp Pulse Pulse Resp BP BP Pulse Ox 12/09/24 09:45 74 32 H 89/36 98 12/09/24 09:36 12/09/24 09:00 77 28 H 148/48 100 12/09/24 08:25 12/09/24 08:15 12/09/24 08:12 12/09/24 08:00 99.1 F 73 35 H 112/42 84 L 12/09/24 07:00 77 37 H 100/49 89 L 12/09/24 06:00 74 27 H 115/45 92 L 12/09/24 05:00 60 22 99/43 91 L 12/09/24 04:00 98.1 F 70 41 H 105/40 93 L 12/09/24 03:58 12/09/24 03:00 70 34 H 131/61 96 12/09/24 00:50 36 H 82 L 12/09/24 00:44 12/08/24 23:10 32 H 90 L 12/08/24 23:06 12/08/24 22:25 30 H 97 12/08/24 22:23 12/08/24 22:00 30 H 84 L 12/08/24 21:55 26 H 116/50 82 L 12/08/24 20:20 26 H 90 L 12/08/24 20:16 90 L 12/08/24 19:55 22 88 L 12/08/24 19:45 97.7 F 64 22 92/52 86 L 12/08/24 15:38 98 F 65 19 102/45 94 L 12/08/24 13:00 62 30 H 124/48 93 L 12/08/24 12:30 73 16 111/42 94 L 12/08/24 12:00 98 F 61 20 116/38 95 12/08/24 11:30 77 21 110/60 93 L 12/08/24 11:00 80 20 110/46 90 L FiO2 12/09/24 09:45 12/09/24 09:36 80 12/09/24 09:00 12/09/24 08:25 100 12/09/24 08:15 100 12/09/24 08:12 100 12/09/24 08:00 100 12/09/24 07:00 12/09/24 06:00 12/09/24 05:00 12/09/24 04:00 100 12/09/24 03:58 100 12/09/24 03:00 12/09/24 00:50 12/09/24 00:44 100 12/08/24 23:10 12/08/24 23:06 75 12/08/24 22:25 12/08/24 22:23 100 12/08/24 22:00 12/08/24 21:55 12/08/24 20:20 12/08/24 20:16 12/08/24 19:55 12/08/24 19:45 12/08/24 15:38 12/08/24 13:00 12/08/24 12:30 12/08/24 12:00 12/08/24 11:30 12/08/24 11:00 Intake and Output 12/08/24 12/09/24 12/09/24 22:59 06:59 14:59 Intake Total 99.917 Output Total 325 70 Balance -325 29.917 Intake: IV 26 0.9 KVO 20 pressure bag 6 Intake, IV Titration 73.917 Amount Norepinephrine 4 mg In 24.137 Sodium Chloride 0.9% 250 ml @ 0.03 MCG/KG/MIN 12. 63 mls/hr IV .Q20H7M BERTO Rx#:[id number] propofoL 1,000 mg In 49.78 Empty Bag 1 bag @ 15 MCG/ KG/MIN 9.945 mls/hr IV . Q10H4M BERTO Rx#:[id number] Output: Urine 325 70 Other: Voiding Method Indwelling Catheter Weight 110.5 kg ABP, PAP, CO, CI - Last 8 Hours Arterial Blood Pressure 102/30 Arterial Blood Pressure 135/36 Patient is sedated and intubated, on the vent FiO2 at 80% Examination of the heart S1 and S2 Examination of the lungs bilateral breath sounds are heard Abdomen is soft obese Examination lower extremity shows edema 1+ bilaterally Results - Lab Results Most recent lab results ABG pH 7.22 (7.35-7.45) L 12/09/24 09:22 ABG pCO2 56 mmHg (35-45) H 12/09/24 09:22 ABG pO2 180 mmHg (83-108) H 12/09/24 09:22 ABG HCO3 23 mmol/L (21-25) 12/09/24 09:22 ABG O2 Saturation 99.2 % (94-97) H 12/09/24 09:22 Calcium 8.6 mg/dL (8.4-10.2) 12/09/24 02:54 Magnesium 1.7 mg/dL (1.6-2.3) 12/08/24 04:15 12/09/24 02:54 12/09/24 02:54 Assessment and Plan Assessment: 1. Acute kidney injury, ATN with borderline urine output. Check UA and ult rasound of the kidneys. Patient has not responded much to Lasix. Agree with right heart catheterization for determining volume status. Patient may need IV fluids 2. Acute hypoxic respiratory failure secondary to pneumonia and component of CHF 3. Status post TAVR on 12/07/2024 4. Chronic A-fib 5. Coronary artery disease with history of coronary artery bypass surgery Plan: Continue off of NEDRA inhibitors Continue to avoid NSAIDs Agree with right heart cath as patient may need IV fluids. Check UA and check ultrasound of the kidneys. Thank you for the consultation. We will continue to follow the patient with you during his hospitalization.
[2024-12-09 11:04] LABS: Appearance,Urine Cloudy (Clear); Bacteria,Urine Rare /hpf; Bilirubin,Urine Negative (Negative); Blood,Urine Large (Negative); Color,Urine Light Red; Glucose,Urine (UA) Trace (Negative); Hyaline Casts,Urine 10 /lpf (0-2); Ketones,Urine Negative (Negative); Leukocyte Esterase,Urine Large (Negative); Mucus,Urine Rare /hpf; Nitrite,Urine Negative (Negative); Protein,Urine Trace (Negative); RBC,Urine >182 /hpf (0-5); Specific Gravity,Urine 1.022 (1.001-1.035); Squamous Epithelial Cell,Urine 2 /hpf (0-4); Urobilinogen,Urine <2.0 mg/dL (<2.0); WBC,Urine 77 /hpf (0-5)
[2024-12-09] MEDS ORDERED: RX INFO: IV CONTRAST WAS GIVEN 1 EACH MISC MISCELLANE PRN (12:00)
--- NOTE | 2024-12-09 12:00 | P.PCN ---
Date of Procedure: 12/09/24 Operative Findings: Right heart catheterization Performing physician Victor M Zarate MD Procedure performed Right heart catheterization Ultrasound-guided access of the right common femoral vein Indication The patient is an 79-year-old gentleman who was diagnosed with severe symptomatic aortic stenosis and underwent TAVR few days ago. That was complicated by acute respiratory failure and heart failure versus ARDS. He was given diuretics with significant worsening in his kidney function. With that he was advised to undergo a right heart catheterization Approach Right common femoral vein Complication None Level of sedation Moderate with sedation length of 12 minutes Procedure description After obtaining informed consent the patient was brought to the cardiac Card Tape Converter Operator. The right common femoral vein was cannulated using micropuncture technique under ultrasound guidance the micropuncture wire passed easily then I placed an 8 Syrian 11 cm sheath at the right common femoral vein. After that I did under fluoroscopy guidance advance a balloontipped [place] catheter to the wedge position and subsequently pulmonary artery then RV then RA. Cardiac output using thermodilution was performed. 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
[2024-12-09 13:21] LABS: Basophils # (A) 0.06 10*3/uL (0.00-0.10); Basophils % (A) 0.2 %; HCT 32.1 % (39.6-50.0); HGB 10.8 g/dL (13.0-17.0); Lymphocytes % (A) 6.1 %; MCH 31.4 pg (27.0-32.0); MCHC 33.6 g/dL (32.0-37.0); MCV 93.3 fL (80.0-97.0); Mean Platelet Volume 10.7 fL (9.5-12.2); Monocytes # (A) 1.83 10*3/uL (0.20-1.00); Monocytes % (A) 6.6 %; Neutrophils # (A) 24.08 10*3/uL (1.80-7.70); Neutrophils % (A) 86.2 %; Platelet Count 193 10*3/uL (140-440); RBC 3.44 10*6/uL (4.40-5.60); WBC 27.93 10*3/uL (4.50-10.00)
[2024-12-09 13:33] LABS: Glucose,Whole Blood 212 mg/dL (70-110)
[2024-12-09 13:48] LABS: ALT 13 U/L (4-49); AST 45 U/L (17-59); African American GFR (CKD) 24 (>60 ml/min/1.73 sqM); Albumin 3.1 g/dL (3.5-5.0); Alkaline Phosphatase 117 U/L (38-126); Anion Gap 8 mmol/L; Blood Urea Nitrogen 49 mg/dL (9-20); Carbon Dioxide 21 mmol/L (22-30); Chloride 102 mmol/L (98-107); Glucose 260 mg/dL (74-99); Non-African American GFR(CKD) 21 (>60 ml/min/1.73 sqM); Sodium 131 mmol/L (137-145); Total Bilirubin 1.1 mg/dL (0.2-1.3); Total Protein 6.2 g/dL (6.3-8.2)
[2024-12-09 13:52] LABS: Potassium 6.5 mmol/L (3.5-5.1)
[2024-12-09] MEDS ORDERED: MORPHINE SULFATE 2 MG/ML SYRINGE IVP PRN (14:00)
[2024-12-09 14:02] LABS: ABG Base Excess -10.9 mmol/L; ABG HCO3 20 mmol/L (21-25); ABG Oxygen Saturation 99.2 % (94-97); ABG PO2 227 mmHg (83-108); ABG TCO2 22 mmol/L (19-24)
[2024-12-09 14:04] LABS: ABG PCO2 74 mmHg (35-45); ABG PH 7.04 (7.35-7.45)
[2024-12-09] MEDS: LORazepam 1 MG/0.5 ML VIAL IV PRN (14:08)
[2024-12-09] MEDS: MORPHINE SULFATE 4 MG/ML SYRINGE IVP PRN (14:08)
[2024-12-09] MEDS: PIPERACILLIN-TAZOBACTAM 3.375 GM in SODIUM CHLORIDE 0.9% 100 ML IVPB ONE (14:28)
[2024-12-09] MEDS: DOPamine DRIP 800 MG in DEXTROSE/WATER 1 250ML.BAG IV SCH (14:28)
[2024-12-09 14:38] VITALS: BP 96/45; PULSE 49; RESP 2
--- NOTE | 2024-12-09 15:06 | P.PCN ---
Date of Procedure: 12/09/24 Preoperative Diagnosis: Acute pulmonary edema Postoperative Diagnosis: Acute pulmonary edema with hypoxic respiratory failure Procedure(s) Performed: Intubation, central line insertion, arterial line insertion Anesthesia: MAC Surgeon: Nancy Ross Estimated Blood Loss (ml): 0 Pathology: other Condition: critical Disposition: ICU Operative Findings: Intubation Indication: Respiratory compromise. Acute hypoxic respiratory failure acute pulmonary edema A time-out was completed verifying correct patient, procedure, site, positioning, and implant(s) or special equipment if applicable. The Glidoscope was used to complete this intubation. The patient was positioned appropriately and a # 8 endotracheal tube was placed under direct glidoscope vision.. The tube was anchored at 22 cm at the teeth. Correct placement was confirmed by presence of bilateral breath sounds without air sounds in the abdomen on auscultation. An end-tidal CO2 monitor was also used to confirm tracheal placement of the ET tube. A chest x-ray was ordered to assess for pneumothorax and verify endotracheal tube placement. The patient tolerated the procedure well and there were no complications. Central line Indication: Hemodynamic monitoring/Intravenous access. Acute pulmonary edema and acute hypoxic respiratory failure A time-out was completed verifying correct patient, procedure, site, positioning, and implant(s) or special equipment if applicable. The patient was placed in a dependent position appropriate for triple lumen catheter placement based on the vein to be cannulated. The patient's left subclavian area was prepped and draped in sterile fashion. 1% Lidocaine was used to anesthetize the surrounding skin area. A triple lumen 9F Cordis catheter was introduced into the subclavian vein using Seldinger technique. The catheter was threaded smoothly over the guide wire and appropriate blood return was obtained. Each lumen of the catheter was evacuated of air and flushed with sterile saline. The Arterial line Indication: Hemodynamic monitoring. Acute hypoxic respiratory failure acute pulmonary edema A time-out was completed verifying correct patient, procedure, site, positioning, and implant(s) or special equipment if applicable. AllenÂ´s test was performed to ensure adequate perfusion. The patientÂ´s right radial was prepped and draped in sterile fashion. 1% Lidocaine was used t o anesthetize the area. An 18G Arrow arterial line was introduced into the right radial artery. The catheter was threaded over the guide wire and the needle was removed with appropriate pulsatile blood return. Blood loss was minimal. The catheter was then sutured in place to the skin and a sterile dressing applied. Perfusion to the extremity distal to the point of catheter insertion was checked and found to be adequate. The patient tolerated the procedure well and there were no complications.
[2024-12-09] MEDS ORDERED: PIPERACILLIN-TAZOBACTAM 3.375 GM in SODIUM CHLORIDE 0.9% 100 ML IVPB SCH ×2 (16:00→20:00)
--- NOTE | 2024-12-09 16:13 | CA ---
Transthoracic Echo Report Name: Jeyson Bailey Age: 79 Gender: M : 1945 Exam Date: 12/09/2024 13:20 Exam Location: [facility] Ht (in): 72 Wt (lb): 243 Ordering Physician: Victor M Zarate MD ([id number]) Attending/Referring Phys: Finishing Lab Technician Nadege Gudino RDCS Procedure CPT: Indications: valve check Cardiac Hx: TAVR 12/07 Technical Quality: Poor Contrast 1: Total Dose (mL): Contrast 2: Total Dose (mL): MEASUREMENTS (Male / Female) Normal Values 2D ECHO LV Diastolic Diameter PLAX 4.9 cm 4.2 - 5.9 / 3.9 - 5.3 cm LV Systolic Diameter PLAX 3.4 cm IVS Diastolic Thickness 0.9 cm 0.6 - 1.0 / 0.6 - 0.9 cm LVPW Diastolic Thickness 0.9 cm 0.6 - 1.0 / 0.6 - 0.9 cm LV Relative Wall Thickness 0.4 DOPPLER AV Peak Velocity 311.2 cm/s AV Peak Gradient 38.7 mmHg AV Mean Velocity 190.1 cm/s AV Mean Gradient 17.9 mmHg AV Velocity Time Integral 55.9 cm TR Peak Velocity 343.6 cm/s TR Peak Gradient 47.2 mmHg FINDINGS Left Ventricle Left ventricular ejection fraction is estimated at 55 %. Right Ventricle Right Atrium Left Atrium Mitral Valve Aortic Valve TAVR, peak velocity 3.1m/s, max gradient 39mmHg, meaen gradient 18mmHg. Tricuspid Valve Structurally normal tricuspid valve. No tricuspid stenosis. Moderate tricuspid regurgitation. Pulmonic Valve Pericardium No pericardial effusion. Aorta CONCLUSIONS Pt coded during echo, echo stopped. Left ventricle systolic function appears to be normal. Aortic valve gradient appears to be significant at a peak gradient of 39 mmHg mean gradient of about 20 mmHg. Previewed by: Dr. Kaleb Olson MD (Electronically Signed) Final Date: 09 Dec 2024 16:13
[2024-12-09] MEDS ORDERED: FUROSEMIDE 40 MG TAB PO STA (16:35)
--- NOTE | 2024-12-09 16:36 | CA ---
Transthoracic Echo Report Name: Jeyson Bailey Age: 79 Gender: M : 1945 Exam Date: 12/09/2024 07:38 Exam Location: [place] [facility] Ht (in): 72 Wt (lb): 238 Ordering Physician: eJyson Sorto MD Attending/Referring Phys: Ticket Scheduler Earnestine Villagran RDCS Procedure CPT: Indications: Increasing O2 demands; tx to ICU Cardiac Hx: TAVR Technical Quality: Fair Contrast 1: Total Dose (mL): Contrast 2: Total Dose (mL): MEASUREMENTS (Male / Female) Normal Values 2D ECHO LV Diastolic Diameter PLAX 5.6 cm 4.2 - 5.9 / 3.9 - 5.3 cm LV Systolic Diameter PLAX 3.5 cm IVS Diastolic Thickness 1.1 cm 0.6 - 1.0 / 0.6 - 0.9 cm LVPW Diastolic Thickness 1.1 cm 0.6 - 1.0 / 0.6 - 0.9 cm LV Relative Wall Thickness 0.4 RV Internal Dim ED PLAX 2.0 cm LVOT Diameter 1.9 cm LA Systolic Diameter LX 4.7 cm 3.0 - 4.0 / 2.7 - 3.8 cm DOPPLER AV Peak Velocity 318.5 cm/s AV Peak Gradient 40.6 mmHg AV Mean Velocity 247.3 cm/s AV Mean Gradient 26.2 mmHg AV Velocity Time Integral 58.3 cm LVOT Peak Velocity 134.3 cm/s LVOT Peak Gradient 7.2 mmHg LVOT Velocity Time Integral 27.3 cm LVOT Stroke Volume 77.3 cm??? LVOT Stroke Volume Index 33.7 ml/m??? LVOT Cardiac Index 2865.6 cm???/min???m??? AV Area Cont Eq vti 1.3 cm??? AV Area Cont Eq pk 1.2 cm??? FINDINGS Left Ventricle Left ventricular ejection fraction is estimated at 60-65%. Normal left ventricular systolic function with no obvious regional wall motion abnormalities. Left ventricular cavity size normal. Right Ventricle Right Atrium Left Atrium Mildly increased left atrial diameter. Mitral Valve Aortic Valve TAVR with a peak velocity of 3.18m/s, peak gradient 41mmHg, mean gradient 26mmHg, and estimated aortic valve area of 1.2 cm???. Mild paravalvular aortic regurgitation. Gradient recorded across the prosthetic aortic valve above the expected range. Tricuspid Valve Pulmonic Valve Pericardium No pericardial or pleural effusion. Echo free space anterior to the right ventricle likely represents a fat pad. Aorta CONCLUSIONS LV size and function is normal. Aortic valve implant noted bioprosthetic percutaneous approach increased gradient mean gradient 26 mmHg peak gradient 41 mmHg. Mild paravalvular leak. No pericardial effusion. Probable fat pad Previewed by: Dr. Kaleb Olson MD (Electronically Signed) Final Date: 09 Dec 2024 16:35
[2024-12-09] MEDS ORDERED: FUROSEMIDE 10 MG/ML 10 ML VIAL IV SCH (21:00)
[2024-12-11] MEDS ORDERED: LEVOTHYROXINE 100 MCG TAB PO SCH (06:30)
--- NOTE | 2024-12-12 10:18 | P.HPIM ---
History of Present Illness H&P Date: 12/09/24 This is a 79-year-old male who was originally admitted to cardiology for TAVR and placement of transvenous temporary pacer and was scheduled for discharge although patient went into respiratory failure with acute heart failure versus respiratory illness and brought back to the ICU initially on BiPAP with an elevated BNP of 3440 and started on IV Lasix went into a flutter and was scheduled to return to cardiac catheterization with Dr. Zarate. Pulmonary lowerator operator was consulted and repeat echo was ordered. Patient also having Eliquis on hold as there was oozing noted to the left groin site. Patient was transferred over to medicine with CT surgery/cardiology on consult along with pulmonary lowerator operator. REVIEW OF SYSTEMS: unable to obtain as patient is obtunded CONSTITUTIONAL: No fever, no malaise, no fatigue. HEENT: No recent visual problems or hearing problems. Denied any sore throat. CARDIOVASCULAR: No chest pain, orthopnea, PND, no palpitations, no syncope. PULMONARY: No shortness of breath, no cough, no hemoptysis. GASTROINTESTINAL: No diarrhea, no nausea, no vomiting, no abdominal pain. NEUROLOGICAL: No headaches, no weakness, no numbness. HEMATOLOGICAL: Denies any bleeding or petechiae. GENITOURINARY: Denies any burning micturition, frequency, or urgency. MUSCULOSKELETAL/RHEUMATOLOGICAL: Denies any joint pain, swelling, or any muscle pain. ENDOCRINE: Denies any polyuria or polydipsia. The rest of the 14-point review of systems is negative. PHYSICAL EXAMINATION: GENERAL: The patient is alert and oriented x3, not in any acute distress. Well developed, well nourished. HEENT: Pupils are round and equally reacting to light. EOMI. No scleral icterus. No conjunctival pallor. Normocephalic, atraumatic. No pharyngeal erythema. No thyromegaly. CARDIOVASCULAR: S1 and S2 present. No murmurs, rubs, or gallops. PULMONARY: Chest is clear to auscultation, no wheezing or crackles. ABDOMEN: Soft, nontender, nondistended, normoactive bowel sounds. No palpable organomegaly. MUSCULOSKELETAL: No joint swelling or deformity. EXTREMITIES: No cyanosis, clubbing, or pedal edema. NEUROLOGICAL: Gross neurological examination did not reveal any focal deficits. SKIN: No rashes. Assessment: recent TAVR secondary to symptomatic severe aortic stenosis respiratory distress with acute hypoxic respiratory failure requiring bipap and ICU admission secondary to heart failure exacerbation Acute leukocytosis, possibly reactive SAMARA, ATN Persistent atrial fibrillation with failed cardioversion on Eliquis outpatient Hypertension history Hyperlipidemia Diabetes mellitus, type II, insulin-dependent Hypothyroidism Left internal carotid disease with stent placement in July 2024 Previous TIA History of coronary artery disease with previous CABG with MONTGOMERY to the LAD and PCI stents to the RCA Former smoker Obesity with a BMI of 33.0 GI prophylaxis DVT prophylaxis Full code Plan: Patient was admitted and transferred to medicine from cardiology status post TAVR after patient experienced respiratory distress and brought to the ICU on BiPAP. Patient was brought to Applications Analyst and ultimately coded and was intubated and brought to the ICU with an FiO2 of 100% and PEEP at 18 with extreme concerns of cardiogenic pulmonary edema and patient was placed on pressor support and also coverage for possible infectious process was initiated Patient lost pulses and multiple attempts at obtaining transcutaneous pacing however unsuccessful and patient was to be brought back to CV for temporary pacemaker and then at 1328 patient went asystole and code was again called with ROSC obtained although family became present at bedside wanting to proceed with comfort measures and comfort was initiated, patient was extubated at 1410 and at 1411. Please refer to code notes along with ICU and nursing notes for further HPI The impression and plan of care has been dictated by Janiya Bhatt, Nurse Practitioner as directed. Dr. Ashutosh MD I have performed a history and examination and MDM of this patient, discussed the same with the dictator, and agree with the dictator's assessment and plan as written ,documented as a scribe. Based on total visit time, I have performed more than 50% of the visit. Past Medical History Past Medical History: Atrial Fibrillation, Coronary Artery Disease (CAD), Diabetes Mellitus, GERD/Reflux, Hearing Disorder / Deafness, Hyperlipidemia, Hypertension, Osteoarthritis (OA), Thyroid Disorder Additional Past Medical History / Comment(s): aortic valve stenosis, Continued SOB and dizziness, right hearing aid use, UMKUM[place]UT left ear. History of Any Multi-Drug Resistant Organisms: None Reported Past Surgical History: Appendectomy, Coronary Bypass/CABG, Heart Catheterization With Stent Additional Past Surgical History / Comment(s): 3 cardiac stents, CABG 1999, "tendon cut in right foot", left carotid stent 08/03/24, cardioversion. Past Anesthesia/Blood Transfusion Reactions: No Reported Reaction Additional Past Anesthesia/Blood Transfusion Reaction / Comment(s): No blood transfusions. Date of Last Stent Placement:: 08/03/24 Smoking Status: Former smoker - Past Family History Mother Family Medical History: No Reported History Father Additional Family Medical History / Comment(s): CABG. Medications and Allergies Home Medications Medication Instructions Recorded Confirmed Type Atorvastatin [Lipitor] 40 mg PO HS 11/13/15 12/07/24 History Levothyroxine Sodium [Synthroid] 200 mcg PO MOTUWETHFRSA 11/13/15 12/07/24 His tory Omeprazole 20 mg PO QAM 11/10/17 12/07/24 History Furosemide [Lasix] 20 mg PO DAILY PRN 10/28/22 12/01/24 History Cetirizine HCl [Zyrtec] 10 mg PO DAILY PRN 07/05/24 12/01/24 History Insulin Glargine,Hum.rec.anlog 20 unit SQ HS 07/05/24 12/07/24 History [Basaglar Kwikpen U-100] Insulin Lispro [humaLOG Kwikpen] 15 unit SQ AC-TID 07/05/24 12/07/24 History Levothyroxine Sodium [Synthroid] 300 mcg PO GONZALEZ 07/05/24 12/07/24 History Nitroglycerin Sl Tabs [Nitrostat] 0.4 mg SUBLINGUAL Q5M PRN 07/05/24 12/01/24 History allopurinoL [Zyloprim] 100 mg PO HS 07/05/24 12/07/24 History Ticagrelor [Brilinta] 90 mg PO BID #60 tab 07/12/24 12/07/24 Rx Aspirin [Adult Low Dose Aspirin EC] 81 mg PO QAM 07/29/24 12/07/24 History Valsartan 160 mg PO BID 07/29/24 12/07/24 History Metoprolol Tartrate 25 mg PO BID 10/06/24 12/07/24 History amLODIPine [Norvasc] 5 mg PO BID 10/06/24 12/07/24 History Amiodarone [Cordarone] 100 mg PO QAM 10/28/24 12/07/24 History Apixaban [Eliquis] 5 mg PO BID 12/01/24 12/07/24 History Allergies Allergy/AdvReac Type Severity Reaction Status Date / Time No Known Allergies Allergy Verified 12/01/24 09:54 Physical Exam Vitals: Vital Signs Temp Pulse Pulse Resp BP BP Pulse Ox 12/09/24 14:00 49 L 96/45 100 12/09/24 13:45 54 L 131/46 98 12/09/24 13:35 12/09/24 13:30 94/37 83 L 12/09/24 13:15 45 L 38 H 97/35 99 12/09/24 13:00 48 L 97/33 98 12/09/24 12:45 89 21 102/31 98 12/09/24 12:30 87 33 H 103/38 99 12/09/24 12:29 12/09/24 12:00 12/09/24 11:35 12/09/24 10:51 82 32 H 12/09/24 10:45 82 33 H 134/46 99 12/09/24 10:30 82 31 H 110/45 99 12/09/24 10:15 75 32 H 107/39 99 12/09/24 10:00 75 30 H 110/45 98 12/09/24 09:45 74 32 H 89/36 98 12/09/24 09:36 12/09/24 09:01 12/09/24 09:00 77 28 H 148/48 100 12/09/24 08:40 12/09/24 08:25 12/09/24 08:12 12/09/24 08:00 99.1 F 73 35 H 112/42 84 L 12/09/24 07:00 77 37 H 100/49 89 L 12/09/24 06:00 74 27 H 115/45 92 L 12/09/24 05:00 60 22 99/43 91 L 12/09/24 04:00 98.1 F 70 41 H 105/40 93 L 12/09/24 03:58 12/09/24 03:00 70 34 H 131/61 96 12/09/24 00:50 36 H 82 L 12/09/24 00:44 12/08/24 23:10 32 H 90 L 12/08/24 23:06 12/08/24 22:25 30 H 97 12/08/24 22:23 12/08/24 22:00 30 H 84 L 12/08/24 21:55 26 H 116/50 82 L 12/08/24 20:20 26 H 90 L 12/08/24 20:16 90 L 12/08/24 19:55 22 88 L 12/08/24 19:45 97.7 F 64 22 92/52 86 L FiO2 12/09/24 14:00 12/09/24 13:45 12/09/24 13:35 100 12/09/24 13:30 12/09/24 13:15 12/09/24 13:00 12/09/24 12:45 12/09/24 12:30 80 12/09/24 12:29 80 12/09/24 12:00 80 12/09/24 11:35 80 12/09/24 10:51 12/09/24 10:45 12/09/24 10:30 12/09/24 10:15 12/09/24 10:00 12/09/24 09:45 12/09/24 09:36 12/09/24 09:01 [facility] [place] 12/09/24 09:00 12/09/24 08:40 12/09/24 08:25 12/09/24 08:12 100 12/09/24 08:00 12/09/24 07:00 12/09/24 06:00 12/09/24 05:00 12/09/24 04:00 100 12/09/24 03:58 12/09/24 03:00 12/09/24 00:50 12/09/24 00:44 [facility] [place] 12/08/24 23:10 12/08/24 23:06 12/08/24 22:25 12/08/24 22:23 100 12/08/24 22:00 12/08/24 21:55 12/08/24 20:20 12/08/24 20:16 12/08/24 19:55 12/08/24 19:45 Intake and Output 12/09/24 12/09/24 12/09/24 06:59 14:59 22:59 Intake Total 651.432 Output Total 325 80 Balance -325 571.432 Intake: IV 44 0.9 KVO 35 pressure bag 9 Intake, IV Titration 607.432 Amount Cisatracurium 200 mg In 24.642 Sodium Chloride 0.9% 180 ml @ 1 MCG/KG/MIN 6.63 mls/hr IV .Q24H BERTO Rx#: [id number] Norepinephrine 4 mg In 415.109 Sodium Chloride 0.9% 250 ml @ 0.03 MCG/KG/MIN 12. 63 mls/hr IV .Q20H7M BERTO Rx#:[id number] Vasopressin 60 unit In 17.901 Sodium Chloride 0.9% 150 ml @ 0.03 UNITS/MIN 4.59 mls/hr IV .Q24H BERTO Rx#: [id number] propofoL 1,000 mg In 149.78 Empty Bag 1 bag @ 15 MCG/ KG/MIN 9.945 mls/hr IV . Q10H4M BERTO Rx#:[id number] Output: Urine 325 80 Other: Voiding Method Indwelling Catheter Indwelling Catheter Weight 110.5 kg ABP, PAP, CO, CI - Last 8 Hours Arterial Blood Pressure 88/34 Arterial Blood Pressure 130/42 Arterial Blood Pressure 12/5 Arterial Blood Pressure 78/33 Arterial Blood Pressure 77/32 Arterial Blood Pressure 84/38 Arterial Blood Pressure 90/35 Arterial Blood Pressure 122/36 Arterial Blood Pressure 129/37 Arterial Blood Pressure 90/31 Arterial Blood Pressure 96/30 Arterial Blood Pressure 102/30 Results CBC & Chem 7: 12/09/24 13:14 12/09/24 13:14 Labs: Abnormal Lab Results - Last 24 Hours (Table) 12/08/24 12/08/24 12/09/24 Range/Units 21:14 22:14 02:18 WBC (4.50-10.00) 10*3/uL RBC (4.40-5.60) 10*6/uL Hgb (13.0-17.0) g/dL Hct (39.6-50.0) % Immature Gran # (0.00-0.04) 10*3/uL Neutrophils # (1.80-7.70) 10*3/uL Monocytes # (0.20-1.00) 10*3/uL Eosinophils # (0.04-0.35) 10*3/uL ABG pH (7.35-7.45) ABG pCO2 (35-45) mmHg ABG pO2 (83-108) mmHg ABG HCO3 (21-25) mmol/L ABG O2 Saturation (94-97) % Hemoglobin (13.0-17.5) gm/dL Sodium (137-145) mmol/L Potassium (3.5-5.1) mmol/L Carbon Dioxide (22-30) mmol/L BUN (9-20) mg/dL Creatinine (0.66-1.25) mg/dL Glucose (74-99) mg/dL POC Glucose (mg/dL) 273 H 270 H 204 H (70-110) mg/dL Calcium (8.4-10.2) mg/dL Total Protein (6.3-8.2) g/dL Albumin (3.5-5.0) g/dL Urine Protein (Negative) Urine Glucose (UA) (Negative) Urine Blood (Negative) Ur Leukocyte Esterase (Negative) Urine RBC (0-5) /hpf Urine WBC (0-5) /hpf Urine Bacteria (None) /hpf Hyaline Casts (0-2) /lpf Urine Mucus (None) /hpf 12/09/24 12/09/24 12/09/24 Range/Units 02:30 02:54 02:54 WBC 19.25 H (4.50-10.00) 10*3/uL RBC 3.57 L (4.40-5.60) 10*6/uL Hgb 11.1 L (13.0-17.0) g/dL Hct 32.2 L (39.6-50.0) % Immature Gran # 0.14 H (0.00-0.04) 10*3/uL Neutrophils # 16.45 H (1.80-7.70) 10*3/uL Monocytes # 1.29 H (0.20-1.00) 10*3/uL Eosinophils # (0.04-0.35) 10*3/uL ABG pH (7.35-7.45) ABG pCO2 (35-45) mmHg ABG pO2 73 L (83-108) mmHg ABG HCO3 (21-25) mmol/L ABG O2 Saturation 93.6 L (94-97) % Hemoglobin 11.6 L (13.0-17.5) gm/dL Sodium 130 L (137-145) mmol/L Potassium (3.5-5.1) mmol/L Carbon Dioxide 19 L (22-30) mmol/L BUN 47 H (9-20) mg/dL Creatinine 1.91 H (0.66-1.25) mg/dL Glucose 205 H (74-99) mg/dL POC Glucose (mg/dL) (70-110) mg/dL Calcium (8.4-10.2) mg/dL Total Protein 6.2 L (6.3-8.2) g/dL Albumin 3.1 L (3.5-5.0) g/dL Urine Protein (Negative) Urine Glucose (UA) (Negative) Urine Blood (Negative) Ur Leukocyte Esterase (Negative) Urine RBC (0-5) /hpf Urine WBC (0-5) /hpf Urine Bacteria (None) /hpf Hyaline Casts (0-2) /lpf Urine Mucus (None) /hpf 12/09/24 12/09/24 12/09/24 Range/Units 06:19 09:22 10:44 WBC (4.50-10.00) 10*3/uL RBC (4.40-5.60) 10*6/uL Hgb (13.0-17.0) g/dL Hct (39.6-50.0) % Immature Gran # (0.00-0.04) 10*3/uL Neutrophils # (1.80-7.70) 10*3/uL Monocytes # (0.20-1.00) 10*3/uL Eosinophils # (0.04-0.35) 10*3/uL ABG pH 7.22 L (7.35-7.45) ABG pCO2 56 H (35-45) mmHg ABG pO2 180 H (83-108) mmHg ABG HCO3 (21-25) mmol/L ABG O2 Saturation 99.2 H (94-97) % Hemoglobin 11.6 L (13.0-17.5) gm/dL Sodium (137-145) mmol/L Potassium (3.5-5.1) mmol/L Carbon Dioxide (22-30) mmol/L BUN (9-20) mg/dL Creatinine (0.66-1.25) mg/dL Glucose (74-99) mg/dL POC Glucose (mg/dL) 213 H (70-110) mg/dL Calcium (8.4-10.2) mg/dL Total Protein (6.3-8.2) g/dL Albumin (3.5-5.0) g/dL Urine Protein Trace H (Negative) Urine Glucose (UA) Trace H (Negative) Urine Blood Large H (Negative) Ur Leukocyte Esterase Large H (Negative) Urine RBC >182 H (0-5) /hpf Urine WBC 77 H (0-5) /hpf Urine Bacteria Rare H (None) /hpf Hyaline Casts 10 H (0-2) /lpf Urine Mucus Rare H (None) /hpf 12/09/24 12/09/24 12/09/24 Range/Units 13:14 13:14 13:31 WBC 27.93 H (4.50-10.00) 10*3/uL RBC 3.44 L (4.40-5.60) 10*6/uL Hgb 10.8 L (13.0-17.0) g/dL Hct 32.1 L (39.6-50.0) % Immature Gran # 0.26 H (0.00-0.04) 10*3/uL Neutrophils # 24.08 H (1.80-7.70) 10*3/uL Monocytes # 1.83 H (0.20-1.00) 10*3/uL Eosinophils # 0.00 L (0.04-0.35) 10*3/uL ABG pH (7.35-7.45) ABG pCO2 (35-45) mmHg ABG pO2 (83-108) mmHg ABG HCO3 (21-25) mmol/L ABG O2 Saturation (94-97) % Hemoglobin (13.0-17.5) gm/dL Sodium 131 L (137-145) mmol/L Potassium 6.5 H* (3.5-5.1) mmol/L Carbon Dioxide 21 L (22-30) mmol/L BUN 49 H (9-20) mg/dL Creatinine 2.77 H (0.66-1.25) mg/dL Glucose 260 H (74-99) mg/dL POC Glucose (mg/dL) 212 H (70-110) mg/dL Calcium 8.0 L (8.4-10.2) mg/dL Total Protein 6.2 L (6.3-8.2) g/dL Albumin 3.1 L (3.5-5.0) g/dL Urine Protein (Negative) Urine Glucose (UA) (Negative) Urine Blood (Negative) Ur Leukocyte Esterase (Negative) Urine RBC (0-5) /hpf Urine WBC (0-5) /hpf Urine Bacteria (None) /hpf Hyaline Casts (0-2) /lpf Urine Mucus (None) /hpf 12/09/24 Range/Units 13:59 WBC (4.50-10.00) 10*3/uL RBC (4.40-5.60) 10*6/uL Hgb (13.0-17.0) g/dL Hct (39.6-50.0) % Immature Gran # (0.00-0.04) 10*3/uL Neutrophils # (1.80-7.70) 10*3/uL Monocytes # (0.20-1.00) 10*3/uL Eosinophils # (0.04-0.35) 10*3/uL ABG pH 7.04 L* (7.35-7.45) ABG pCO2 74 H* (35-45) mmHg ABG pO2 227 H (83-108) mmHg ABG HCO3 20 L (21-25) mmol/L ABG O2 Saturation 99.2 H (94-97) % Hemoglobin 10.7 L (13.0-17.5) gm/dL Sodium (137-145) mmol/L Potassium (3.5-5.1) mmol/L Carbon Dioxide (22-30) mmol/L BUN (9-20) mg/dL Creatinine (0.66-1.25) mg/dL Glucose (74-99) mg/dL POC Glucose (mg/dL) (70-110) mg/dL Calcium (8.4-10.2) mg/dL Total Protein (6.3-8.2) g/dL Albumin (3.5-5.0) g/dL Urine Protein (Negative) Urine Glucose (UA) (Negative) Urine Blood (Negative) Ur Leukocyte Esterase (Negative) Urine RBC (0-5) /hpf Urine WBC (0-5) /hpf Urine Bacteria (None) /hpf Hyaline Casts (0-2) /lpf Urine Mucus (None) /hpf Thrombosis Risk Factor Assmnt - Choose All That Apply Any of the Below Risk Factors Present?: Yes Each Factor Represents 1 point: Obesity (BMI >25) Other Risk Factors: Yes Each Risk Factor Represents 2 Points: Central venous access, Major surgery Each Risk Factor Represents 3 Points: Age 75 years or older Other congenital or acquired thrombophilia - If yes, enter type in comment: No Thrombosis Risk Factor Assessment Total Risk Factor Score: 8 Thrombosis Risk Factor Assessment Level: High Risk
--- NOTE | 2024-12-12 10:20 | P.DS ---
Providers Date of admission: 12/07/24 09:45 Expected date of discharge: 12/09/24 Attending physician: Zoe Boykin Consults: 12/02/24 06:40 Consult to Anesthesia Routine Consulting Provider: Anesthesia,Services Consult Reason/Comments: Cardiac Surgery Pre-Op 12/07/24 14:29 Consult Physician Routine Consulting Provider: Jeyson Sorto Consult Reason/Comments: post TAVR Do you want consulting provider notified?: Already Contacted 12/08/24 22:04 Consult Physician Routine Consulting Provider: Nancy Ross Consult Reason/Comments: Increasing oxygen demands Do you want consulting provider notified?: Already Contacted 12/09/24 07:38 Consult Physician Routine Consulting Provider: Victor M Zarate Consult Reason/Comments: cardiac post TAVR managment Do you want consulting provider notified?: Already Contacted 12/09/24 08:58 Consult Physician Routine Consulting Provider: Serina Mccollum Consult Reason/Comments: SAMARA Do you want consulting provider notified?: Yes Primary care physician: Jeyson Grissom Hospital Course: Preliminary cause of Congestive heart failure with exacerbation with respiratory failure status post TAVR Final diagnosis recent TAVR secondary to symptomatic severe aortic stenosis respiratory distress with acute hypoxic respiratory failure requiring bipap and ICU admission secondary to heart failure exacerbation Acute leukocytosis, possibly reactive SAMARA, ATN Persistent atrial fibrillation with failed cardioversion on Eliquis outpatient Hypertension history Hyperlipidemia Diabetes mellitus, type II, insulin-dependent Hypothyroidism Left internal carotid disease with stent placement in July 2024 Previous TIA History of coronary artery disease with previous CABG with MONTGOMERY to the LAD and PCI stents to the RCA Former smoker Obesity with a BMI of 33.0 GI prophylaxis DVT prophylaxis Full code Discharge disposition According to nursing documentation, patient has on 12/09/2024 with time of 1411. Please refer to other consultation notes and ICU notes along with the event code notes for further HPI. Total time taken greater than 35 minutes Hospital course This is a 79-year-old male who was originally admitted to cardiology for TAVR and placement of transvenous temporary pacer and was scheduled for discharge although patient went into respiratory failure with acute heart failure versus respiratory illness and brought back to the ICU initially on BiPAP with an elevated BNP of 3440 and started on IV Lasix went into a flutter and was scheduled to return to cardiac catheterization with Dr. Zarate. Pulmonary cutter aluminum sheet was consulted and repeat echo was ordered. Patient also having Eliquis on hold as there was oozing noted to the left groin site. Patient was transferred over to medicine with CT surgery/cardiology on consult along with pulmonary cutter aluminum sheet Plan: Patient was admitted and transferred to medicine from cardiology status post TAVR after patient experienced respiratory distress and brought to the ICU on BiPAP. Patient was brought to Retail Consultant and ultimately coded and was intubated and brought to the ICU with an FiO2 of 100% and PEEP at 18 with extreme concerns of cardiogenic pulmonary edema and patient was placed on pressor support and also coverage for possible infectious process was initiated Patient lost pulses and multiple attempts at obtaining transcutaneous pacing however unsuccessful and patient was to be brought back to CVL for temporary pacemaker and then at 1328 patient went asystole and code was again called with ROSC obtained although family became present at bedside wanting to proceed with comfort measures and comfort was initiated, patient was extubated at 1410 and at 1411. Please refer to code notes along with ICU cutter aluminum sheet along w [facility] cardiology and nursing notes for further HPI The impression and plan of care has been dictated by Janiya Bhatt, Nurse Practitioner as directed. Dr. Ashutosh MD I have performed a history and examination and MDM of this patient, discussed the same with the dictator, and agree with the dictator's assessment and plan as written ,documented as a scribe. Based on total visit time, I have performed more than 50% of the visit. Patient Condition at Discharge: Undetermined Plan - Discharge Summary Discharge Rx Participant: No New Discharge Prescriptions: No Action Levothyroxine Sodium [Synthroid] 200 mcg PO MOTUWETHFRSA Atorvastatin [Lipitor] 40 mg PO HS Omeprazole 20 mg PO QAM Cetirizine HCl [Zyrtec] 10 mg PO DAILY PRN PRN Reason: Allergic Reaction Ticagrelor [Brilinta] 90 mg PO BID #60 tab Aspirin [Adult Low Dose Aspirin EC] 81 mg PO QAM amLODIPine [Norvasc] 5 mg PO BID Metoprolol Tartrate 25 mg PO BID Amiodarone [Cordarone] 100 mg PO QAM Apixaban [Eliquis] 5 mg PO BID Furosemide [Lasix] 20 mg PO DAILY PRN PRN Reason: Edema Levothyroxine Sodium [Synthroid] 300 mcg PO GONZALEZ Nitroglycerin Sl Tabs [Nitrostat] 0.4 mg SUBLINGUAL Q5M PRN PRN Reason: Chest Pain Insulin Lispro [humaLOG Kwikpen] 15 unit SQ AC-TID Insulin Glargine,Hum.rec.anlog [Basaglar Kwikpen U-100] 20 unit SQ HS allopurinoL [Zyloprim] 100 mg PO HS Valsartan 160 mg PO BID Discharge Medication List Atorvastatin [Lipitor] 40 mg PO HS 11/13/15 [History] Levothyroxine Sodium [Synthroid] 200 mcg PO MOTUWETHFRSA 11/13/15 [History] Omeprazole 20 mg PO QAM 11/10/17 [History] Furosemide [Lasix] 20 mg PO DAILY PRN 10/28/22 [History] Cetirizine HCl [Zyrtec] 10 mg PO DAILY PRN 07/05/24 [History] Insulin Glargine,Hum.rec.anlog [Basaglar Kwikpen U-100] 20 unit SQ HS 07/05/24 [History] Insulin Lispro [humaLOG Kwikpen] 15 unit SQ AC-TID 07/05/24 [History] Levothyroxine Sodium [Synthroid] 300 mcg PO GONZALEZ 07/05/24 [History] Nitroglycerin Sl Tabs [Nitrostat] 0.4 mg SUBLINGUAL Q5M PRN 07/05/24 [History] allopurinoL [Zyloprim] 100 mg PO HS 07/05/24 [History] Ticagrelor [Brilinta] 90 mg PO BID #60 tab 07/12/24 [Rx] Aspirin [Adult Low Dose Aspirin EC] 81 mg PO QAM 07/29/24 [History] Valsartan 160 mg PO BID 07/29/24 [History] Metoprolol Tartrate 25 mg PO BID 10/06/24 [History] amLODIPine [Norvasc] 5 mg PO BID 10/06/24 [History] Amiodarone [Cordarone] 100 mg PO QAM 10/28/24 [History] Apixaban [Eliquis] 5 mg PO BID 12/01/24 [History] Follow up Appointment(s)/Referral(s): Victor M Zarate MD [STAFF PHYSICIAN] - 12/20/24 1:45 pm (Your appointment with Dr. Zarate on 12/20/2024 is for a groin check and will be at the [facility]. You also have a 30-day post TAVR echocardiogram and office appointment with Dr. Zarate on 01/25/25 at 2:30 PM, and a 1 year post TAVR echocardiogram and appointment with Dr. Zarate 11/24/2025 at 10:30 AM) Jeyson Grissom MD [Primary Care Provider] - As Needed Clinic,Structural Heart [NON-STAFF] - 01/25/25 2:00 pm (You also have a 1 year post TAVR appointment at the valve clinic 11/24/25 at 10 AM) Ambulatory/Diagnostic Orders: Basic Metabolic Panel [LAB.AMB] Location: None Selected Basic Metabolic Panel [LAB.AMB] Location: None Selected Complete Blood Count w/diff [LAB.AMB] Location: None Selected Complete Blood Count w/diff [LAB.AMB] Location: None Selected Activity/Diet/Wound Care/Special Instructions: DISCHARGE INSTRUCTIONS: 1. No driving for 1 week, or until physician gives their ok. 2. No lifting, pushing, or pulling more than 5-10 pounds for 1 week. 3. Hold both groins when you cough or sneeze for the next 2 weeks. Bruising is common, but report increased swelling, pain or fever >101F 4. Shower daily. No pool, hot tub, or bathtub for 1 week 5. No powders, lotions, ointments on incisions. 6. No straining, including for bowel movements. Use stool softner if necessary 7. Stairs are not an issue. Go slowly, using handrail and take 1 step at a time. Ambulate several times daily 8. Continue pain control per as needed orders. 9. Take only the medications listed on your discharge form 10. Eat low salt (limited to 2 grams or 2000 milligrams) daily, avoid adding salt, avoid canned/processed foods 11. Take your weight daily in the morning and record, bring with you to your follow up appointments 12. Keep all follow up appointments. You will need a valve clinic appointment at 30 days and 1 year post procedure for follow up 13. You have been referred to and are expected to begin Cardiac Rehab in approximately 4 weeks. 14. You will need antibiotics prior to any dental work, including cleanings, and any surgeries to prevent Endocarditis (bacterial infection in your heart) For any questions or concerns please call your valve coordinators: Harmony or Andrey @ Discharge Disposition: - Preliminary Cause of Preliminary Cause of : Congestive heart failure with exacerbation with respiratory failure status
--- NOTE | 2024-12-13 13:37 | CDI ---
Documentation Clarification Form Date: 12/13/2024 01:16:07 PM From: Allie Seay RN, CCDS Email: [email or web address] Admit Date: 12/07/2024 09:45:00 AM Patient Name: Jeyson Bailey Visit Number: [id number] Discharge Date: 12/09/2024 05:51:00 PM ATTENTION: The Clinical Documentation Specialists (CDI) and [facility] Coding Staff appreciate your assistance in clarifying documentation. Please respond to the clarification below the line at the bottom and electronically sign. The CDI & [facility] Coding staff will review the response and follow-up if needed. Please note: Queries are made part of the Legal Health Record. If you have any questions, please contact the author of this message via ITS. Doctor Zoe Boykin Your patient had hypotension, went into cardiac arrest and was given IV Norepinephrine. Based on this information and the findings below, is there an additional diagnosis that is clinically appropriate for this patient? Patient history/risk factors: 12/09 H&P: "Patient was originally admitted to Cardiology for TAVR and placement of transvenous temporary pacer and was scheduled for discharge although patient went into respiratory failure with acute heart failure." Clinical Indicators: 12/08 CXR: Multifocal airspace opacities concerning for pulmonary edema. 12/09 Echo: Patient coded during echo, echo stopped. Left ventricle systolic function appears to be normal. Aortic valve gradient appears to be significant at a peak gradient of 39 mmHg mean gradient of about 20 mmHg. 12/09 IM H&P: "Patient was brought to Court Officer and ultimately coded and was intubated and brought to the ICU with an FiO2 of 100% and PEEP at 18 with extreme concerns of cardiogenic pulmonary edema and patient was placed on pressor support." 12/09 CCU: "As for the postintubation hypotension, a triple-lumen catheter was inserted and the patient was started on Norepinephrine which is currently running at 0.15 mcg/kg/min. The patient is in a bundle branch block pattern on the left. He also has a first-degree AV block." 12/09 BP: 89/36-110/45-94/37 12/09 Discharge summary: "Patient was brought to Court Officer and ultimately coded and was intubated and brought to the ICU with an FiO2 of 100% and PEEP at 18 with extreme concerns of cardiogenic pulmonary edema and patient was placed on pressor support." Treatment: IV Levophed titrated 12/09; IV Vasopressin titrated 12/09 Is there an additional diagnosis that is clinically appropriate for this patient? [ ] Cardiogenic shock [ ] No additional diagnosis/Not clinically significant [ ] Unable to determine [ ] Other, please specify Cardiogenic shock MTDD
== END 2024-12-09 17:51 | disposition expired | DRG 266 ==
LOC: 2ORMAIN 09:45 → 2SICU 14:43 → 3SCARD 12-08 17:38 → 2SICU 12-09 02:13
PROVIDERS: ADMIT Hospitalist; ATTEND Hospitalist
PROC: B24BZZ4 Ultrasonography of Heart with Aorta, Transesophageal (ICD-10-PCS; 2024-12-07)
PROC: 02RF38Z Replacement of Aortic Valve with Zooplastic Tissue, Percutaneous Approach (ICD-10-PCS; principal; 2024-12-07 12:25)
PROC: 4A023N6 Measurement of Cardiac Sampling and Pressure, Right Heart, Percutaneous Approach (ICD-10-PCS; 2024-12-09)
PROC: B2111ZZ Fluoroscopy of Multiple Coronary Arteries using Low Osmolar Contrast (ICD-10-PCS; 2024-12-09)
PROC: 0BH18EZ Insertion of Endotracheal Airway into Trachea, Via Natural or Artificial Opening Endoscopic (ICD-10-PCS; 2024-12-09)
PROC: 5A1935Z Respiratory Ventilation, Less than 24 Consecutive Hours (ICD-10-PCS; 2024-12-09)
PROC: 02HV33Z Insertion of Infusion Device into Superior Vena Cava, Percutaneous Approach (ICD-10-PCS; 2024-12-09)
PROC: 03HY32Z Insertion of Monitoring Device into Upper Artery, Percutaneous Approach (ICD-10-PCS; 2024-12-09)
PROC: 4A133B1 Monitoring of Arterial Pressure, Peripheral, Percutaneous Approach (ICD-10-PCS; 2024-12-09)
PROC: 4A133J1 Monitoring of Arterial Pulse, Peripheral, Percutaneous Approach (ICD-10-PCS; 2024-12-09)
PROC: 5A09357 Assistance with Respiratory Ventilation, Less than 24 Consecutive Hours, Continuous Positive Airway Pressure (ICD-10-PCS; 2024-12-09)
PROC: 3E043XZ Introduction of Vasopressor into Central Vein, Percutaneous Approach (ICD-10-PCS; 2024-12-09)
DX: I08.0 Rheumatic disorders of both mitral and aortic valves (principal); Z00.6 Encounter for examination for normal comparison and control in clinical research program; J81.0 Acute pulmonary edema; J96.01 Acute respiratory failure with hypoxia; N17.0 Acute kidney failure with tubular necrosis; R57.0 Cardiogenic shock; I46.9 Cardiac arrest, cause unspecified; I11.0 Hypertensive heart disease with heart failure; I27.22 Pulmonary hypertension due to left heart disease; E11.9 Type 2 diabetes mellitus without complications; E03.9 Hypothyroidism, unspecified; E66.9 Obesity, unspecified; I48.19 Other persistent atrial fibrillation; I48.92 Unspecified atrial flutter; I25.810 Atherosclerosis of coronary artery bypass graft(s) without angina pectoris; Z79.4 Long term (current) use of insulin; Z66 Do not resuscitate; Z51.5 Encounter for palliative care; I11.9 Hypertensive heart disease without heart failure; I95.9 Hypotension, unspecified; I44.0 Atrioventricular block, first degree; H91.93 Unspecified hearing loss, bilateral; I25.10 Atherosclerotic heart disease of native coronary artery without angina pectoris; E78.5 Hyperlipidemia, unspecified; Z68.33 Body mass index [BMI] 33.0-33.9, adult; Z86.73 Personal history of transient ischemic attack (TIA), and cerebral infarction without residual deficits; Z87.891 Personal history of nicotine dependence; Z95.5 Presence of coronary angioplasty implant and graft; Z82.49 Family history of ischemic heart disease and other diseases of the circulatory system; Z79.82 Long term (current) use of aspirin; Z79.01 Long term (current) use of anticoagulants; Z79.899 Other long term (current) drug therapy; Z79.890 Hormone replacement therapy; Z79.02 Long term (current) use of antithrombotics/antiplatelets; Z97.4 Presence of external hearing-aid
CPT/HCPCS: 33361; 71045; 80048; 80053; 81001; 82805; 83605; 83735; 83880; 85025; 87070; 87205; 92950; 93306; 93308; 93312; 93320; 93325; 93451; 94002; 94640; 94660; 94760